=== PATIENT | male | born 1960 | race Caucasian/White ===

== ENCOUNTER 2020-07-05 23:23 | Inpatient (IN) | payer MEDICARE ==
[2020-07-06] MEDS ORDERED: HYDROMORPHONE HCL INJ/PF 2 MG/ML AMPULE IV ONE ×2 (00:04→04:25)
[2020-07-06] MEDS ORDERED: ONDANSETRON HCL INJ/PF 4 MG/2 ML SDV IV ONE ×2 (00:04→11:38)
--- NOTE | 2020-07-06 00:12 | ER Document Report ---
Entered by ALISIA RODRIGUEZ SCRIBE 07/06/20 0008 Acting as scribe for:TAIWO LUIS IV, MD ED Fall - General Mode of Arrival: Medic Information source: Patient, Emergency Med Personnel <TAIWO LUIS IV - Last Filed: 07/06/20 06:51> <EDGAR MEADEIS - Last Filed: 07/06/20 15:04> - General Chief Complaint: General Weakness Stated Complaint: FALL Time Seen by Provider: 07/05/20 23:55 Notes: This 60 year old male patient brought in by EMS from home presents to the ED today with complaints of generalized weakness for the last x1 week and a fall that occurred just prior to arrival. Patient states that he was getting up to use the bathroom when his knees buckled and he fell onto the floor. He mentions that he is supposed to have both knees replaced; however, the surgeon will not do them due to his liver failure and risk of bleeding per nursing. Reports lower back pain, but denies hitting his head or LOC. Patient states that he recently moved here with his sister from [place], [place]. Nursing reports a past medical history of A fib. Denies any other complaints. (TAIWO LUIS IV) - Related data Allergies/Adverse Reactions: No Known Allergies Allergy (Unverified 07/06/20 01:24) Past Medical History - General Information source: Emergency Med Personnel - Social History Smoking Status: Unknown if Ever Smoked Smoking Education Provided: No Lives with: Family Family History: Reviewed & Not Pertinent - Past Medical History Cardiac Medical History: Reports: Hx Atrial Fibrillation GI Medical History: Reports: Hx Liver Failure <TAIWO LUIS IV - Last Filed: 07/06/20 06:51> Review of Systems - Review of Systems Constitutional: No symptoms reported EENT: No symptoms reported Cardiovascular: No symptoms reported Respiratory: No symptoms reported Gastrointestinal: No symptoms reported Genitourinary: No symptoms reported Male Genitourinary: No symptoms reported Musculoskeletal: See HPI, Back pain Skin: No symptoms reported Hematologic/Lymphatic: No symptoms reported Neurological/Psychological: See HPI. denies: Lost consciousness, Headaches -: Yes All other systems reviewed and negative <TAIWO LUIS IV - Last Filed: 07/06/20 06:51> Physical Exam - General General appearance: Alert In distress: None - HEENT Head: Normocephalic, Atraumatic Eyes: Other - Right eye prosthetic - Respiratory Respiratory status: No respiratory distress Chest status: Nontender Breath sounds: Normal Chest palpation: Normal - Cardiovascular Rhythm: Regular Heart sounds: Normal auscultation Murmur: No Friction rub: No Gallop: None auscultated - Abdominal Inspection: Morbidly Obese Distension: No distension Bowel sounds: Normal Tenderness: Nontender - Abdomen soft Organomegaly: No organomegaly - Back Back: Normal, Nontender - Extremities General upper extremity: Normal inspection General lower extremity: Edema - 2+ pitting edema to bilateral lower extremities - Neurological Neuro grossly intact: Yes Orientation: AAOx4 Reyna Coma Scale Eye Opening: Spontaneous [place] Coma Scale Verbal: Oriented Reyna Coma Scale Motor: Obeys Commands Reyna Coma Scale Total: 15 - Psychological Associated symptoms: Normal affect, Normal mood - Skin Skin Temperature: Warm Skin Moisture: Dry Skin Color: Normal <TAIWO LUIS IV - Last Filed: 07/06/20 06:51> - Vital signs Vitals: Resp 13 07/05/20 23:54 Course - Laboratory Result Diagrams: 07/06/20 00:23 07/06/20 03:37 - Consults dr mcclellan Time consulted: 05:20 - stated pt would need to be in icu for hypertonic saline celeste rosario np, beater room helper Time consulted: 05:30 - no icu beds available for 3 days - Transfer of Care Care transferred to following provider: dr. purvis at 0647 <TAIWO LUIS IV - Last Filed: 07/06/20 06:51> - Laboratory Result Diagrams: 07/06/20 00:23 07/06/20 11:26 <ANGY MEADE - Last Filed: 07/06/20 15:04> - Re-evaluation Re-evalutation: 07/06/20 06:51 This md discussed pt's status with sister Mishel and likely transfer to [facility] (TAIWO LUIS IV) 07/06/20 07:55 Late entry due to EMR downtime. At approximately 7:15 AM I discussed with the ICU attending at [facility]. Per discussion patient does not meet ICU criteria at this time and he was not accepted in transfer. Per our discussion, beater room helper believes that these are likely chronic issues, he recommended normal saline and possibly albumin. States that he is not in acute renal failure and does not need dialysis at this time. Suspecting due to Lasix and Aldactone use. He recommended against the use of hypertonic saline. At approximately 0745 I discussed with our hospitalist team here, Dr. Hwang is still adamant that this patient needs hypertonic saline and does not think he is appropriate for the IMCU at this time. I have gone in to evaluate the patient, I do not think that he exhibits overt altered mental status. I will start him on D5 normal saline infusion, recheck BMP. 07/06/20 08:11 I have discussed the case with our beater room helper Dr. Baca. Potentially there might be an ICU bed available in a few hours. Has requested urine sodium and osmolarity, serum osmolarity. Given that his creatinine is not markedly elevated, anticipate that his potassium will downtrend. I will continue to manage patient in the emergency department until definitive answer if bed is opening. 07/06/20 08:56 Repeat BMP has been obtained. Potassium is 7.1, was 6.9, is overall lower from previous value. Will re-administer shifting agents: Calcium, glucose, insulin and albuterol. Sodium has improved, currently 116 07/06/20 11:37 Patient sister is now at bedside, I did updated her on the current plan. Patient says that he is feeling sick, will order Zofran. 07/06/20 12:46 Sodium has further increased and potassium has further decreased. Creatinine has remained about the same. I rediscussed with our ICU attending Dr. Baca, he will be going to our ICU here. (ANGY MEADE) - Vital Signs Vital signs: Temp Pulse Resp BP Pulse Ox 15 133/72 H 97 07/06/20 13:01 07/06/20 13:01 07/06/20 13:01 - Laboratory Laboratory results interpreted by me: 07/06/20 07/06/20 07/06/20 00:23 00:23 03:37 WBC 16.1 H RBC 3.17 L Hgb 10.8 L Hct 31.0 L MCV 98 H MCH 33.9 H RDW 15.5 H Plt Count 85 L Seg Neuts % (Manual) 91 H Lymphocytes % (Manual) 3 L Abs Neuts (Manual) 14.7 H Sodium 114.8 L* 113.7 L* Potassium 7.6 H* 6.9 H* Chloride 83 L 84 L Carbon Dioxide 21 L BUN 33 H 33 H Creatinine 2.24 H 2.15 H Est GFR ( Amer) 36 L 38 L Est GFR (MDRD) Non-Af 30 L 32 L Glucose 120 H POC Glucose Serum Osmolality Total Bilirubin 2.2 H Direct Bilirubin 1.2 H Alkaline Phosphatase 147 H Ammonia Creatine Kinase 195 H 184 H Urine Osmolality 07/06/20 07/06/20 07/06/20 03:37 06:41 08:11 WBC RBC Hgb Hct MCV MCH RDW Plt Count Seg Neuts % (Manual) Lymphocytes % (Manual) Abs Neuts (Manual) Sodium 116.4 L* Potassium 7.1 H* Chloride 83 L Carbon Dioxide BUN 32 H Creatinine 2.26 H Est GFR ( Amer) 36 L Est GFR (MDRD) Non-Af 30 L Glucose 112 H POC Glucose Serum Osmolality 252 L Total Bilirubin Direct Bilirubin Alkaline Phosphatase Ammonia 89.3 H Creatine Kinase Urine Osmolality 07/06/20 07/06/20 07/06/20 08:17 09:31 11:26 WBC RBC Hgb Hct MCV MCH RDW Plt Count Seg Neuts % (Manual) Lymphocytes % (Manual) Abs Neuts (Manual) Sodium 117.2 L* Potassium 6.7 H* Chloride 86 L Carbon Dioxide BUN 34 H Creatinine 2.11 H Est GFR ( Amer) 39 L Est GFR (MDRD) Non-Af 32 L Glucose 260 H POC Glucose 127 H Serum Osmolality Total Bilirubin Direct Bilirubin Alkaline Phosphatase Ammonia Creatine Kinase Urine Osmolality 297 L 07/06/20 11:26 WBC RBC Hgb Hct MCV MCH RDW Plt Count Seg Neuts % (Manual) Lymphocytes % (Manual) Abs Neuts (Manual) Sodium Potassium Chloride Carbon Dioxide BUN Creatinine Est GFR ( Amer) Est GFR (MDRD) Non-Af Glucose POC Glucose 115 H Serum Osmolality Total Bilirubin Direct Bilirubin Alkaline Phosphatase Ammonia Creatine Kinase Urine Osmolality - EKG Interpretation by Me Additional EKG results interpreted by me: 07/06/20 06:46 EKG obtained on 07/06/2020 at 00 03 hours was interpreted by this MD. Findings: Sinus bradycardia, rate 58, normal axis, P waves proceed QRS complexes, QRS complexes appear narrow, there are no obvious patterns of ST segment elevation or depression present to suggest acute myocardial ischemia or infarction. Impression: Sinus bradycardia with nonspecific ST segments (TAIWO LUIS IV) - Consults dr mcclellan Reason for consultation: 07/06/20 06:52 low na, high k (TAIWO LUIS IV) celeste rosario, account representative, beater room helper Reason for consultation: 07/06/20 06:54 pt needs hypertonic saline (TAIWO LUIS IV) Critical Care Note - Critical Care Note Total time excluding time spent on procedures (mins): 40 <ANGY MEADE - Last Filed: 07/06/20 15:04> - Critical Care Note Comments: Critical care time spent managing hyponatremia, hyperkalemia, multiple reassessments of patient and coordination of care with multiple physicians. (ANGY MEADE) Discharge <TAIWO LUIS IV - Last Filed: 07/06/20 06:51> - Discharge Unit Admitted: ICU <ANGY MEADE - Last Filed: 07/06/20 15:04> - Discharge Clinical Impression: Hyperkalemia, Hyponatremia, Renal insufficiency Condition: Stable Disposition: ADMITTED INPATIENT I personally performed the services described in the documentation, reviewed and edited the documentation which was dictated to the scribe in my presence, and it accurately records my words and actions.
[2020-07-06 00:53] LABS: HEMOGLOBIN 10.8 g/dL (13.5-17.0); MEAN CORPUSCULAR HEMOGLOBIN 33.9 pg (27.0-33.4); MEAN CORPUSCULAR HGB CONC 34.7 g/dL (32.0-36.0); MEAN CORPUSCULAR VOLUME 98 fl (80-97); RED BLOOD COUNT 3.17 10^6/uL (4.35-5.55); RED CELL DISTRIBUTION WIDTH 15.5 % (11.5-14.0); WHITE BLOOD COUNT 16.1 10^3/uL (4.0-10.5)
--- NOTE | 2020-07-06 00:59 | RADIOLOGY REPORT (SQ) ---
INDICATION: s/p fall, c/o back pain. TECHNIQUE: 2 view(s) of the lumbar spine. COMPARISON: None FINDINGS: No evidence of acute displaced fracture. Grade 1 anterior spondylolisthesis of L5 on S1. Osteoarthritis. Vertebral body heights are well-maintained. Vascular calcification. IMPRESSION: No acute bony injury is identified.
[2020-07-06 01:23] LABS: ABSOLUTE LYMPHOCYTES# (MANUAL) 0.5 10^3/uL (0.5-4.7); BASOPHILS % (MANUAL) 0 % (0-2); EOSINOPHILS % (MANUAL) 0 % (0-6); LYMPHOCYTES % (MANUAL) 3 % (13-45); MONOCYTES % (MANUAL) 6 % (3-13); PLATELET COMMENT DECREASED; SEGMENTED NEUTROPHILS % (MAN) 91 % (42-78); TOTAL CELLS COUNTED 100
[2020-07-06 01:24] LABS: SCHISTOCYTES SLIGHT
[2020-07-06 01:26] LABS: ANISOCYTOSIS 1+; POLYCHROMASIA SLIGHT
[2020-07-06 01:30] LABS: ALBUMIN 3.6 g/dL (3.5-5.0); ALKALINE PHOSPHATASE 147 U/L (38-126); ANION GAP 10 (5-19); ASPARTATE AMINO TRANSFERASE 56 U/L (17-59); BILIRUBIN,DIRECT 1.2 mg/dL (0.0-0.4); BILIRUBIN,TOTAL 2.2 mg/dL (0.2-1.3); BLOOD UREA NITROGEN 33 mg/dL (7-20); CALCIUM 9.4 mg/dL (8.4-10.2); CARBON DIOXIDE 22 mmol/L (22-30); CHLORIDE 83 mmol/L (98-107); CREATINE KINASE 195 U/L (55-170); GLUCOSE 106 mg/dL (75-110); PLATELET COUNT 85 10^3/uL (150-450)
[2020-07-06 01:35] LABS: POTASSIUM 7.6 mmol/L (3.6-5.0)
[2020-07-06 01:38] LABS: CREATINE KINASE MB 4.09 ng/mL (<4.55)
[2020-07-06 01:39] LABS: TROPONIN I < 0.012 ng/mL
[2020-07-06] MEDS ORDERED: DEXTROSE 50%-WATER 25 GM/50 ML DISP.SYRIN IV ONE ×3 (01:39→18:03)
[2020-07-06] MEDS ORDERED: CALCIUM GLUCONATE 1000 MG/10 ML INJ IV ONE ×2 (01:39→08:55)
[2020-07-06] MEDS ORDERED: SODIUM BICARBONATE 8.4% INJ 50 MEQ/50 ML DISP.SYRIN IV ONE (01:40)
[2020-07-06] MEDS ORDERED: INSULIN REG, HUMAN 100 UNIT/ML 3 ML VIAL (PYX) IV ONE ×3 (01:40→18:03)
[2020-07-06] MEDS ORDERED: NORMAL SALINE 500 ML IV ONE (01:41)
[2020-07-06] MEDS ORDERED: SODIUM POLYSTYRENE SULFONATE 15 GM/60 ML PO ONE ×3 (01:41→18:01)
[2020-07-06 02:04] LABS: APPEARANCE,URINE CLEAR; BILIRUBIN,URINE NEGATIVE (NEGATIVE); COLOR,URINE YELLOW; GLUCOSE, URINE NEGATIVE (NEGATIVE); KETONES,URINE NEGATIVE (NEGATIVE); LEUKOCYTE ESTERASE,URINE NEGATIVE (NEGATIVE); NITRITE,URINE NEGATIVE (NEGATIVE); PROTEIN,URINE NEGATIVE (NEGATIVE); URINE SPECIFIC GRAVITY 1.009; UROBILINOGEN,URINE NEGATIVE mg/dL (<2.0)
[2020-07-06 04:24] LABS: ANION GAP 9 (5-19); BLOOD UREA NITROGEN 33 mg/dL (7-20); CALCIUM 9.2 mg/dL (8.4-10.2); CARBON DIOXIDE 21 mmol/L (22-30); CHLORIDE 84 mmol/L (98-107); CREATINE KINASE 184 U/L (55-170); GLUCOSE 120 mg/dL (75-110)
[2020-07-06 04:35] LABS: POTASSIUM 6.9 mmol/L (3.6-5.0)
[2020-07-06] MEDS ORDERED: DEXTROSE 5%-NORMAL SALINE 1,000 ML IV ONE (07:50)
[2020-07-06 08:47] LABS: ANION GAP 9 (5-19); BLOOD UREA NITROGEN 32 mg/dL (7-20); CALCIUM 9.2 mg/dL (8.4-10.2); CARBON DIOXIDE 24 mmol/L (22-30); CHLORIDE 83 mmol/L (98-107); GLUCOSE 112 mg/dL (75-110)
[2020-07-06 08:49] LABS: URINE SODIUM 34 mmol/L (30-90)
[2020-07-06 08:49] LABS: POTASSIUM 7.1 mmol/L (3.6-5.0)
[2020-07-06] MEDS ORDERED: ALBUTEROL SULFATE 0.083% NEB 2.5 MG/3 ML AMPUL NEB ONE (08:55)
[2020-07-06 09:01] LABS: OSMOLALITY,URINE 297 mOsm/kg (300-900)
--- NOTE | 2020-07-06 09:16 | RADIOLOGY REPORT (SQ) ---
EXAM DESCRIPTION: CHEST SINGLE VIEW IMAGES COMPLETED DATE/TIME: 07/06/2020 8:57 am REASON FOR STUDY: eval conslidation COMPARISON: None. EXAM PARAMETERS: NUMBER OF VIEWS: One view. TECHNIQUE: Single frontal radiographic view of the chest acquired. RADIATION DOSE: NA LIMITATIONS: Lordotic portable film, obese patient FINDINGS: LUNGS AND PLEURA: No opacities, masses or pneumothorax. No pleural effusion. MEDIASTINUM AND HILAR STRUCTURES: No masses. Contour normal. HEART AND VASCULAR STRUCTURES: Heart normal in size. Normal vasculature. BONES: No acute findings. HARDWARE: None in the chest. OTHER: No other significant finding. IMPRESSION: NO ACUTE RADIOGRAPHIC FINDING IN THE CHEST. TECHNICAL DOCUMENTATION: JOB ID: [id number] 2010 [employer]- All Rights Reserved Reading location - IP/workstation name: [email or web address]
--- NOTE | 2020-07-06 10:32 | EKG REPORT ---
SEVERITY:- ABNORMAL ECG - ATRIAL FIBRILLATION IVCD, CONSIDER ATYPICAL LBBB : Confirmed by: Willa Ybarra MD 06-Jul-2020 10:31:44
[2020-07-06 12:09] LABS: ANION GAP 9 (5-19); BLOOD UREA NITROGEN 34 mg/dL (7-20); CALCIUM 8.7 mg/dL (8.4-10.2); CARBON DIOXIDE 22 mmol/L (22-30); CHLORIDE 86 mmol/L (98-107); GLUCOSE 260 mg/dL (75-110)
[2020-07-06 12:31] LABS: POTASSIUM 6.7 mmol/L (3.6-5.0)
[2020-07-06] MEDS ORDERED: IPRATROPIUM/ALBUTEROL 0.5-2.5 MG/3 ML AMPUL NEB ONE (13:08)
--- NOTE | 2020-07-06 15:11 | RADIOLOGY REPORT (SQ) ---
EXAM DESCRIPTION: CHEST SINGLE VIEW IMAGES COMPLETED DATE/TIME: 07/06/2020 3:03 pm REASON FOR STUDY: cough COMPARISON: Chest radiograph earlier same day NUMBER OF VIEWS: One view. TECHNIQUE: Single frontal radiographic view of the chest acquired. LIMITATIONS: None. FINDINGS: LUNGS AND PLEURA: Low lung volumes with resultant bronchovascular crowding. No focal pulm onary opacity, pleural effusion, or pneumothorax. MEDIASTINUM AND HILAR STRUCTURES: No masses. Contour normal. HEART AND VASCULAR STRUCTURES: Heart normal in size. Normal vasculature. BONES: No acute findings. HARDWARE: None in the chest. OTHER: No other significant finding. IMPRESSION: Hypoventilated exam without evidence of acute pulmonary process. TECHNICAL DOCUMENTATION: JOB ID: [id number] 2010 [employer]- All Rights Reserved Reading location - IP/workstation name: [email or web address]
[2020-07-06] MEDS ORDERED: NORMAL SALINE 1000 ML 1,000 ML IV PRN (16:38)
[2020-07-06] MEDS ORDERED: GLUCAGON,HUMAN RECOMB 1 MG INJ IM PRN (16:50)
[2020-07-06] MEDS ORDERED: DEXTROSE 40% GEL 15 GM TUBE PO PRN ×2 (16:50)
[2020-07-06] MEDS ORDERED: DEXTROSE 50%-WATER 25 GM/50 ML DISP.SYRIN IV PRN ×2 (16:50)
[2020-07-06] MEDS ORDERED: NORMAL SALINE 250 ML with FUROSEMIDE 250 MG IV PRN ×2 (17:07)
--- NOTE | 2020-07-06 17:39 | CRITICAL CARE ADMISSION REPORT ---
HPI Date:: 07/06/20 Time:: 17:00 Reason for ICU Reason:: Sever hyponatremia. Significant hyperkalemia. Anasarca Admission Date/Time & PCP: Admission Date/Time: 07/06/20 14:50 Primary Care Provider: CLAUDINE: The patient presents with generalized weakness and obtundation. He fell in his home yesterday as well. He lives with his sister. The patient has a history significant for CHF and Cirrhosis. When he had routinelabs doen they showed severe hyponatremaiand hyperkalemia. The patient was found to have an intial Na+ of 114 and potassium of 7.6. His creatinine is 2.24. (for GFR of 30). The patient has additional history of Atrial fib but denies being on antiembolic treatment. At this time the patient is conversant with me , speaks clearly and has decent comprehension. His serum osmolality is 252. His urien osmolality is 297 and urine Na 34. The patient has fairly massive peripheral edema. He has been on large dose of Spironolactone and lasix at home. His ammonia levl is about 80. he appears to be hemodynamically stable Plan Summary: Assessment and plan Hyponatremia This is a patient who appears to have hypotonic hypervolemic hyponatremia. It apears that the cause may be multifactorial. The patient has a history of cirrhosis ( on which basis is may have hypoaldosteronism and spironolactone, volume overload due to CHF. The patient has been treated with small doses of NACL not likely to have much of an impact as his urine osmolarity is fairly close to theosmiolality of NACL. I have added salt tablets and laced the patient on declomycin (ADH inhibitor). I have started large dose IV lasic as well. We will monotor the lytes q 6h or more frequently if need be. Hyperkalemai His potassium has trended down slightly. He does not appear to have typical changes of hyperkalemia on his ECG other than slight peaking of T waves in some of the precordial leads. Will continue to trend potassium. The patient received glucose and insulin, kayexelate,bicarbonate. CHF I have asked for an ECHO. I have asked Dr Leggett to see the patient. His heart rate at resent appears reasonably well controlled. I am not sure why he is not on anticoagulation alf. EUNICE ?I have oredered a ABG. I suspect that thepatient has EUNICE based onhis bbody habitus but he denies it. Cirrhosis The patient has no history of ascites. he does have an elevate ammonia level. I have started lactulose Past Medical History Cardiac Medical History: Reports: Atrial Fibrillation Social/Family History - Social History Lives with: Family Smoking Status: Unknown if Ever Smoked - Medication/Allergies Home Medications: Carvedilol [Coreg 12.5 mg Tablet] 12.5 mg PO Q12 07/06/20 Colchicine [Colcrys 0.6 mg Tablet] 1 tab PO BID 07/06/20 Furosemide [Lasix 20 mg Tablet] 20 mg PO BID 07/06/20 Gabapentin [Neurontin] 800 mg PO TID 07/06/20 Multivitamin [Tab-A-Renny] 1 each PO DAILY 07/06/20 Omeprazole 40 mg PO DAILY 07/06/20 Ondansetron [Zofran Odt 4 mg Tablet] 4 mg PO BIDP PRN 07/06/20 Rifaximin [Xifaxan 550 Mg Tablet] 550 mg PO QHS 07/06/20 Spironolactone [Aldactone 100 mg Tablet] 1 tab PO Q12 07/06/20 Turmeric/Turmeric Root Extract [Turmeric 500 mg Capsule] 1 each PO DAILY 07/06/20 Allergies/Adverse Reactions: No Known Allergies Allergy (Unverified 07/06/20 01:24) Review of Systems Constitutional: PRESENT: weight gain. ABSENT: chills, fatigue, fever(s) Eyes: ABSENT: visual disturbances Ears: ABSENT: hearing changes Nose, Mouth, and Throat: ABSENT: mouth pain, sore throat Cardiovascular: PRESENT: dyspnea on exertion, edema Respiratory: ABSENT: cough, sputum Gastrointestinal: PRESENT: dysphagia. ABSENT: abdominal pain, bloating Musculoskeletal: ABSENT: joint swelling, muscle weakness Integumentary: ABSENT: erythema, lesions Neurological: PRESENT: frequent falls, other - The patient was reportedly somnolent but arousable onpresentationto the ED. Endocrine: ABSENT: polydipsia Hematologic/Lymphatic: ABSENT: easy bruising Physical Exam Vital Signs: Temp Pulse Resp BP Pulse Ox 9 L 123/97 H 100 07/06/20 16:01 07/06/20 16:01 07/06/20 16:01 Intake & Output 07/05/20 07/06/20 07/07/20 06:59 06:59 06:59 Intake Total 500 Balance 500 Weight 88.5 kg Weight/Height Weight 88.5 kg Height 5 ft 9 in General appearance: PRESENT: no acute distress, morbidly obese Head exam: PRESENT: atraumatic, normocephalic Eye exam: PRESENT: conjunctiva pink Ear exam: PRESENT: normal external ear exam Mouth exam: PRESENT: moist, neck supple Neck exam: ABSENT: JVD, lymphadenopathy, tenderness, thyromegaly Respiratory exam: PRESENT: clear to auscultation lul. ABSENT: accessory muscle use Cardiovascular exam: PRESENT: irregular rhythm Pulses: PRESENT: normal carotid pulses, +2 pedal pulses bilateral GI/Abdominal exam: PRESENT: normal bowel sounds, other - Large abdominal panniculus. Unclear oif there is hepatomegaly Rectal exam: PRESENT: deferred Gentrourinary exam: ABSENT: scrotal swelling Extremities exam: PRESENT: pedal edema, other - The patient has 4+ edema. ABSENT: calf tenderness, clubbing Neurological exam: PRESENT: awake, oriented to person, oriented to place, oriented to time, oriented to situation, motor sensory deficit. ABSENT: aphasic Laboratory/Radiographs Laboratory Results: 07/06/20 00:23 07/06/20 11:26 07/06/20 07/06/20 07/06/20 00:03 00:23 00:23 WBC 16.1 H RBC 3.17 L Hgb 10.8 L Hct 31.0 L MCV 98 H MCH 33.9 H MCHC 34.7 RDW 15.5 H Plt Count 85 L Seg Neutrophils % Not Reportable Sodium 114.8 L* Potassium 7.6 H* Chloride 83 L Carbon Dioxide 22 Anion Gap 10 BUN 33 H Creatinine 2.24 H Est GFR ( Amer) 36 L Glucose 106 Serum Osmolality Calcium 9.4 Total Bilirubin 2.2 H AST 56 Alkaline Phosphatase 147 H Ammonia Total Protein 7.0 Albumin 3.6 Urine Color YELLOW Urine Appearance CLEAR Urine pH 6.0 Ur Specific [place] 1.009 Urine Protein NEGATIVE Urine Glucose (UA) NEGATIVE Urine Ketones NEGATIVE Urine Blood NEGATIVE Urine Nitrite NEGATIVE Ur Leukocyte Esterase NEGATIVE Urine WBC (Auto) 0 Urine Osmolality 07/06/20 07/06/20 07/06/20 03:37 03:37 06:41 WBC RBC Hgb Hct MCV MCH MCHC RDW Plt Count Seg Neutrophils % Sodium 113.7 L* Potassium 6.9 H* Chloride 84 L Carbon Dioxide 21 L Anion Gap 9 BUN 33 H Creatinine 2.15 H Est GFR ( Amer) 38 L Glucose 120 H Serum Osmolality 252 L Calcium 9.2 Total Bilirubin AST Alkaline Phosphatase Ammonia 89.3 H Total Protein Albumin Urine Color Urine Appearance Urine pH Ur Specific [place] Urine Protein Urine Glucose (UA) Urine Ketones Urine Blood Urine Nitrite Ur Leukocyte Esterase Urine WBC (Auto) Urine Osmolality 07/06/20 07/06/20 07/06/20 08:11 08:17 11:26 WBC RBC Hgb Hct MCV MCH MCHC RDW Plt Count Seg Neutrophils % Sodium 116.4 L* 117.2 L* Potassium 7.1 H* 6.7 H* Chloride 83 L 86 L Carbon Dioxide 24 22 Anion Gap 9 9 BUN 32 H 34 H Creatinine 2.26 H 2.11 H Est GFR ( Amer) 36 L 39 L Glucose 112 H 260 H Serum Osmolality Calcium 9.2 8.7 Total Bilirubin AST Alkaline Phosphatase Ammonia Total Protein Albumin Urine Color Urine Appearance Urine pH Ur Specific [place] Urine Protein Urine Glucose (UA) Urine Ketones Urine Blood Urine Nitrite Ur Leukocyte Esterase Urine WBC (Auto) Urine Osmolality 297 L 07/06/20 07/06/20 07/06/20 00:23 00:23 03:37 Creatine Kinase 195 H 184 H CK-MB (CK-2) 4.09 Troponin I < 0.012 Impressions: Lumbar Spine X-Ray 07/06/20 00:05 IMPRESSION: No acute bony injury is identified. Chest X-Ray 07/06/20 14:47 IMPRESSION: Hypoventilated exam without evidence of acute pulmonary process. Critical Time Critical Time (minutes): 50 -: The care of a critically ill patient is dynamic. This note represents a static moment in the admission process. Orders and treatments may be given simultaneously and urgently, and time is not banking representative of the treatment process. This patient requires Critical Care secondary to life threatening organ or limb dysfunction. Without Critical Care services, the patient is at risk for increased mortality and morbidity.
[2020-07-06 17:50] LABS: ANION GAP 10 (5-19); BLOOD UREA NITROGEN 37 mg/dL (7-20); CALCIUM 9.3 mg/dL (8.4-10.2); CARBON DIOXIDE 23 mmol/L (22-30); CHLORIDE 83 mmol/L (98-107); GLUCOSE 145 mg/dL (75-110)
[2020-07-06 17:56] LABS: POTASSIUM 7.5 mmol/L (3.6-5.0)
[2020-07-06] MEDS ORDERED: FUROSEMIDE INJ/PF 40 MG/4 ML SDV IV ONE (18:06)
[2020-07-06] MEDS ORDERED: FUROSEMIDE INJ/PF 40 MG/4 ML SDV ONE (18:33)
[2020-07-06] MEDS ORDERED: DEMECLOCYCLINE HCL 150 MG TABLET ONE (18:40)
[2020-07-06] MEDS ORDERED: FUROSEMIDE INJ/PF 100 MG/10 ML SDV ONE (18:42)
[2020-07-06] MEDS: DEMECLOCYCLINE HCL 150 MG TABLET PO SCH (19:18)
[2020-07-06] MEDS: CALCIUM GLUC IN NACL, ISO-OSM 1 GM/50 ML RTUPB IV SCH ×2 (19:18→20:23)
[2020-07-06] MEDS: LACTULOSE SYRUP 20 GM/30 ML UDCUP PO SCH (19:18)
[2020-07-06] MEDS: DOCUSATE SODIUM 100 MG CAPSULE PO SCH (19:18)
[2020-07-06 19:24] LABS: ARTERIAL BLOOD BASE EXCESS -5.1 mmol/L; ARTERIAL BLOOD H2CO3 1.14 mmol/L (1.05-1.35); ARTERIAL BLOOD HCO3 20.1 mmol/L (20-24); ARTERIAL BLOOD O2 SATURATION 97.1 % (94-98); ARTERIAL BLOOD PCO2 37.8 mmHg (35-45); ARTERIAL BLOOD PH 7.34 (7.35-7.45); ARTERIAL BLOOD PO2 97.5 mmHg (80-100); ARTERIAL BLOOD TOTAL CO2 21.3 mmol/L (23-27)
[2020-07-06 19:25] LABS: ARTERIAL BLOOD FIO2 3 L
[2020-07-06] MEDS ORDERED: ONDANSETRON HCL INJ/PF 4 MG/2 ML SDV ONE (20:41)
[2020-07-06] MEDS ORDERED: PROMETHAZINE HCL INJ 25 MG/1 ML VIAL IV ONE (20:46)
[2020-07-06] MEDS: ONDANSETRON HCL INJ/PF 4 MG/2 ML SDV IV PRN (20:48)
[2020-07-06] MEDS: IPRATROPIUM/ALBUTEROL 0.5-2.5 MG/3 ML AMPUL NEB SCH (21:06)
[2020-07-06 22:33] LABS: ALBUMIN 3.6 g/dL (3.5-5.0); ALKALINE PHOSPHATASE 136 U/L (38-126); ASPARTATE AMINO TRANSFERASE 84 U/L (17-59); BILIRUBIN,DIRECT 1.2 mg/dL (0.0-0.4); BLOOD UREA NITROGEN 36 mg/dL (7-20); CALCIUM 9.2 mg/dL (8.4-10.2); CARBON DIOXIDE 22 mmol/L (22-30); CHLORIDE 86 mmol/L (98-107); GLUCOSE 105 mg/dL (75-110); TOTAL PROTEIN 7.1 g/dL (6.3-8.2)
[2020-07-06 22:34] LABS: ANION GAP 8 (5-19)
[2020-07-06 22:48] LABS: POTASSIUM 6.6 mmol/L (3.6-5.0)
[2020-07-06] MEDS ORDERED: TRAMADOL HCL 50 MG TABLET PO ONE (22:51)
[2020-07-07] MEDS: ALBUMIN HUMAN 12.5 GM/50 ML RTUINJ IV SCH ×4 (00:05→03:06)
[2020-07-07] MEDS: ONDANSETRON HCL INJ/PF 4 MG/2 ML SDV IV PRN (01:43)
[2020-07-07 06:32] LABS: ABSOLUTE EOSINOPHILS # (AUTO) 0.1 10^3/uL (0.0-0.6); ABSOLUTE LYMPHOCYTES (AUTO) 0.9 10^3/uL (0.5-4.7); ABSOLUTE MONOCYTES (AUTO) 1.5 10^3/uL (0.1-1.4); ABSOLUTE NEUT (AUTO) 7.8 10^3/uL (1.7-8.2); BASOPHILS % (AUTO) 0.5 % (0-2); EOSINOPHILS % (AUTO) 0.5 % (0-6); HEMATOCRIT 25.6 % (37.9-51.0); HEMOGLOBIN 9.2 g/dL (13.5-17.0); LYMPHOCYTES % (AUTO) 8.6 % (13-45); MEAN CORPUSCULAR HGB CONC 36.1 g/dL (32.0-36.0); MEAN CORPUSCULAR VOLUME 97 fl (80-97); MONOCYTES % (AUTO) 14.4 % (3-13); RED BLOOD COUNT 2.64 10^6/uL (4.35-5.55); RED CELL DISTRIBUTION WIDTH 15.7 % (11.5-14.0); TOTAL CELLS COUNTED % (AUTO) 100 %; WHITE BLOOD COUNT 10.2 10^3/uL (4.0-10.5)
[2020-07-07 06:48] LABS: ALBUMIN 3.7 g/dL (3.5-5.0); ALKALINE PHOSPHATASE 112 U/L (38-126); ANION GAP 12 (5-19); ASPARTATE AMINO TRANSFERASE 100 U/L (17-59); BILIRUBIN,DIRECT 1.2 mg/dL (0.0-0.4); BILIRUBIN,TOTAL 2.1 mg/dL (0.2-1.3); BLOOD UREA NITROGEN 38 mg/dL (7-20); CALCIUM 9.2 mg/dL (8.4-10.2); CARBON DIOXIDE 22 mmol/L (22-30); CHLORIDE 86 mmol/L (98-107); CHOLESTEROL 124.27 mg/dL (0-200); GLUCOSE 94 mg/dL (75-110); PHOSPHORUS 5.4 mg/dL (2.5-4.5); TOTAL PROTEIN 6.6 g/dL (6.3-8.2); TRIGLYCERIDES 105 mg/dL (<150)
[2020-07-07 06:57] LABS: POTASSIUM 6.4 mmol/L (3.6-5.0)
[2020-07-07 06:59] LABS: DIRECT LDL 62 mg/dL (<100)
[2020-07-07 07:02] LABS: FREE T4 (FREE THYROXINE) 1.47 ng/dL (0.78-2.19)
[2020-07-07 07:16] LABS: THYROID STIMULATING HORMONE 9.67 uIU/mL (0.47-4.68)
[2020-07-07 07:26] LABS: PLATELET COUNT 71 10^3/uL (150-450)
[2020-07-07] MEDS ORDERED: ETOMIDATE INJ/PF 20 MG/10 ML SDV IV ONE (08:00)
[2020-07-07] MEDS ORDERED: DEXMEDETOMIDINE IN 0.9 % NACL 0 MCG/0 ML RTUPB IV ONE (08:27)
[2020-07-07] MEDS: IPRATROPIUM/ALBUTEROL 0.5-2.5 MG/3 ML AMPUL NEB SCH ×4 (08:40→19:43)
[2020-07-07] MEDS: INSULIN REG, HUMAN 100 UNIT/ML 3 ML VIAL (PYX) SUBCUT SCH (09:41)
[2020-07-07] MEDS ORDERED: RIFAXIMIN 550 MG TABLET PO SCH (10:00)
[2020-07-07] MEDS ORDERED: ENOXAPARIN SODIUM INJ 40 MG/0.4 ML DISP.SYRIN SUBCUT SCH (10:00)
[2020-07-07] MEDS: LACTULOSE SYRUP 20 GM/30 ML UDCUP PO SCH ×2 (10:49→18:18)
[2020-07-07] MEDS: DOCUSATE SODIUM 100 MG CAPSULE PO SCH ×2 (10:50→18:18)
[2020-07-07] MEDS: DEMECLOCYCLINE HCL 150 MG TABLET PO SCH ×2 (10:50→18:18)
[2020-07-07] MEDS: SODIUM CHLORIDE 1 GM TABLET PO SCH (10:50)
[2020-07-07] MEDS ORDERED: ONDANSETRON 4 MG TAB.RAPDIS PO PRN (10:55)
--- NOTE | 2020-07-07 11:22 | PDOC CRITICAL CARE PROG REPORT ---
General Date:: 07/07/20 ICU Day:: 1 Hospital Day:: 1 Resuscitation Status: Full Code Events in the past 12 to 24 Hours:: Both sodium higher and potassium lower. Review of systems relevant to events:: Renal, hepatic and neurological Reason for ICU Addmission:: Both sodium and potassium improved. - Medications: Medications reviewed and adjusted accordingly: Yes Vasopressors:: None Sedation:: None Physical Exam Vital Signs: Temp Pulse Resp BP Pulse Ox 98.2 F 72 12 142/65 H 95 07/07/20 10:00 07/07/20 08:40 07/07/20 10:27 07/07/20 10:27 07/07/20 10:27 Intake & Output 07/06/20 07/07/20 07/08/20 06:59 06:59 06:59 Intake Total 500 1200 1077 Output Total 1500 640 Balance 500 -300 437 Weight 88.5 kg 142.1 kg Weight/Height Weight 142.1 kg Height 5 ft 9 in General appearance: PRESENT: no acute distress, cooperative, obese Head exam: PRESENT: atraumatic, normocephalic Eye exam: PRESENT: conjunctiva pink, EOMI, PERRLA. ABSENT: scleral icterus Ear exam: PRESENT: normal external ear exam Mouth exam: PRESENT: moist, tongue midline Neck exam: ABSENT: carotid bruit, JVD, lymphadenopathy, thyromegaly Respiratory exam: PRESENT: clear to auscultation lul, decreased breath sounds. ABSENT: rales, rhonchi, wheezes Cardiovascular exam: PRESENT: RRR. ABSENT: diastolic murmur, rubs, systolic murmur GI/Abdominal exam: PRESENT: normal bowel sounds, soft. ABSENT: distended, guarding, mass, organolmegaly, rebound, tenderness Rectal exam: PRESENT: deferred Gentrourinary exam: PRESENT: indwelling catheter Extremities exam: PRESENT: full ROM. ABSENT: calf tenderness, clubbing, pedal edema Musculoskeletal exam: PRESENT: normal inspection Neurological exam: PRESENT: alert, altered, awake, oriented to person Psychiatric exam: PRESENT: flat affect Skin exam: PRESENT: petechiae, other - Ecchymoses from falling. Laboratory/Radiographs Laboratory Results: 07/07/20 06:05 07/07/20 06:05 07/06/20 07/06/20 07/06/20 11:26 17:25 19:09 WBC RBC Hgb Hct MCV MCH MCHC RDW Plt Count Seg Neutrophils % Carbonic Acid 1.14 HCO3/H2CO3 Ratio 17:1 ABG pH 7.34 L ABG pCO2 37.8 ABG pO2 97.5 ABG HCO3 20.1 ABG O2 Saturation 97.1 ABG Base Excess -5.1 FiO2 3 L Sodium 117.2 L* 116.4 L* Potassium 6.7 H* 7.5 H* Chloride 86 L 83 L Carbon Dioxide 22 23 Anion Gap 9 10 BUN 34 H 37 H Creatinine 2.11 H 2.41 H Est GFR ( Amer) 39 L 33 L Glucose 260 H 145 H Lactic Acid Calcium 8.7 9.3 Phosphorus Magnesium Total Bilirubin AST Alkaline Phosphatase Total Protein Albumin Triglycerides Cholesterol LDL Cholesterol Direct VLDL Cholesterol HDL Cholesterol TSH Free T4 07/06/20 07/06/20 07/07/20 22:02 22:02 06:05 WBC 10.2 RBC 2.64 L Hgb 9.2 L Hct 25.6 L MCV 97 MCH 35.0 H MCHC 36.1 H RDW 15.7 H Plt Count 71 L Seg Neutrophils % 76.0 Carbonic Acid HCO3/H2CO3 Ratio ABG pH ABG pCO2 ABG pO2 ABG HCO3 ABG O2 Saturation ABG Base Excess FiO2 Sodium 116.2 L* Potassium 6.6 H* Chloride 86 L Carbon Dioxide 22 Anion Gap 8 BUN 36 H Creatinine 2.39 H Est GFR ( Amer) 34 L Glucose 105 Lactic Acid 1.5 Calcium 9.2 Phosphorus Magnesium 2.0 Total Bilirubin 2.0 H AST 84 H Alkaline Phosphatase 136 H Total Protein 7.1 Albumin 3.6 Triglycerides Cholesterol LDL Cholesterol Direct VLDL Cholesterol HDL Cholesterol TSH Free T4 07/07/20 07/07/20 06:05 06:05 WBC RBC Hgb Hct MCV MCH MCHC RDW Plt Count Seg Neutrophils % Carbonic Acid HCO3/H2CO3 Ratio ABG pH ABG pCO2 ABG pO2 ABG HCO3 ABG O2 Saturation ABG Base Excess FiO2 Sodium 119.9 L* Potassium 6.4 H* Chloride 86 L Carbon Dioxide 22 Anion Gap 12 BUN 38 H Creatinine 2.24 H Est GFR ( Amer) 36 L Glucose 94 Lactic Acid Calcium 9.2 Phosphorus 5.4 H Magnesium 1.9 Total Bilirubin 2.1 H AST 100 H Alkaline Phosphatase 112 Total Protein 6.6 Albumin 3.7 Triglycerides 105 Cholesterol 124.27 LDL Cholesterol Direct 62 VLDL Cholesterol 21.0 HDL Cholesterol 42 TSH 9.67 H Free T4 1.47 07/06/20 07/06/20 07/06/20 00:23 00:23 03:37 Creatine Kinase 195 H 184 H CK-MB (CK-2) 4.09 Troponin I < 0.012 NT-Pro-B Natriuret Pep 07/07/20 06:05 Creatine Kinase CK-MB (CK-2) Troponin I NT-Pro-B Natriuret Pep 1540 H Impressions: Lumbar Spine X-Ray 07/06/20 00:05 IMPRESSION: No acute bony injury is identified. Chest X-Ray 07/06/20 14:47 IMPRESSION: Hypoventilated exam without evidence of acute pulmonary process. EKG: Currently NSR All labs, radiographs, diagnostic studies and EKGs were personally reviewed: Yes In addition, reports of radiographic and diagnostic studies were read: Yes Assessment and Plan - Diagnosis (1) Hyponatremia Is this a current diagnosis for this admission?: Yes Plan: His level of 119 without 3% NS is improved. Lasix drip stopped, aldactone stopped. Repeat BMP at 1PM. Stable for [facility] transfer. (2) Hyperammonemia Is this a current diagnosis for this admission?: Yes Plan: His level of 80 has nothing to compare to. However it is likely contributing to is flat affect. (3) Hyperkalemia Is this a current diagnosis for this admission?: Yes Plan: Potassium improved. (4) Renal insufficiency Is this a current diagnosis for this admission?: Yes Plan: We have nothing to copare his Cr and GFR to. However this would make sense with regard to his potassium level. Plan Summary: Will recheck BMP at 1 PM and downgrade to [facility]. PT to mobilize. Critical Time Critical Time (minutes): 30 Level of Care: IMCU Anticipated discharge: Home with Homehealth Anticipated DC Timeframe: Other -: 1. The care of a critical patient is a dynamic process. This note is a telemarketing representative synopsis but static in nature. The timeframe for treatments given in order is not necessarily the actual time these treatments may have been done. 2. This patient requires critical care secondary to ongoing requirements for therapy not offered or safe outside the critical care environment. Transfer to a lower level of care will result in altered life or limb morbidity and mortality. 3. Multidisciplinary rounds completed. 4. ABCDE bundle addressed.
[2020-07-07] MEDS: GABAPENTIN 400 MG CAPSULE PO SCH ×2 (14:44→22:06)
[2020-07-07 15:16] LABS: ANION GAP 7 (5-19); BLOOD UREA NITROGEN 39 mg/dL (7-20); CALCIUM 8.9 mg/dL (8.4-10.2); CARBON DIOXIDE 26 mmol/L (22-30); CHLORIDE 88 mmol/L (98-107); GLUCOSE 109 mg/dL (75-110); POTASSIUM 5.6 mmol/L (3.6-5.0)
[2020-07-07] MEDS: NORMAL SALINE 1000 ML 1,000 ML IV PRN (18:18)
[2020-07-07] MEDS: FUROSEMIDE 20 MG TABLET PO SCH (18:18)
[2020-07-07] MEDS: COLCHICINE 0.6 MG TABLET PO SCH (18:18)
--- NOTE | 2020-07-07 20:49 | XCELERA REPORT ---
[address] [address] Transthoracic Echocardiogram Report Name: NOAH LANGLEY Age: 60 yrs Gender: Male : 1960 Patient Status: Inpatient Patient Location: ICU^607^A Study Date: 07/07/2020 11:45 AM Height: 69 in Weight: 313 lb BSA: 2.5 m2 Reason For Study: LV dysfunction Ordering Physician: CLIFF SOTELO Performed By: Altagracia Martinez Interpretation Summary The left ventricle is mildly dilated. Left ventricular systolic function is normal. The Ejection Fraction estimate is 60-65%. Doppler measurements suggest pseudonormalized left ventricular relaxation, which is associated with grade II/IV or mild to moderate diastolic dysfunction. Regional wall motion assessment is limited by suboptimal windows however it appears normal. Trace to mild MR, mild TR, mild PI. Moderate pulmonary hypertension. Best estimated RVSP is approximately 50-55 mm/Hg. No prior studies for comparison. MMode/2D Measurements & Calculations RVDd: 2.9 cm LVIDd: 5.8 cm FS: 40.4 % Ao root diam: 2.5 cm IVSd: 1.0 cm LVIDs: 3.4 cm EDV(Teich): 165.2 ml LVPWd: 1.0 cm ESV(Teich): 48.9 ml Ao root area: 4.8 cm2 LA dimension: 5.7 cm EF(Teich): 70.4 % Doppler Measurements & Calculations MV E max dada: MV P1/2t max dada: Ao V2 max: LV V1 max P.3 cm/sec 151.8 cm/sec 200.9 cm/sec 8.6 mmHg MV A max dada: MV P1/2t: 86.3 msec Ao max PG: LV V1 max: 109.2 cm/sec MVA(P1/2t): 2.5 cm2 16.1 mmHg 146.8 cm/sec MV E/A: 1.4 MV dec slope: 515.3 cm/sec2 MV dec time: 0.27 sec PA V2 max: TR max dada: MV P1/2t-pr_phl: 133.9 cm/sec 335.3 cm/sec 86.3 msec PA max P.2 mmHgTR max P.0 mmHg Left Ventricle The left ventricle is mildly dilated. Left ventricular systolic function is normal. The Ejection Fraction estimate is 60-65%. Doppler measurements suggest pseudonormalized left ventricular relaxation, which is associated with grade II/IV or mild to moderate diastolic dysfunction. Regional wall motion assessment is limited by suboptimal windows however it appears normal. Right Ventricle The right ventricle is normal in size, thickness and function. The right ventricular systolic function is normal. Atria The right atrium is normal. The left atrium is mildly dilated. The interatrial septum is difficult to see, but appears to be grossly normal. Mitral Valve The mitral valve is grossly normal. There is a trace to mild amount of mitral regurgitation. Aortic Valve The aortic valve is not well visualized secondary to technical limitations. No aortic regurgitation is present. Tricuspid Valve The tricuspid valve is not well visualized secondary to technical limitations. There is a trace to mild amount of tricuspid regurgitation. There is moderate pulmonary hypertension by echo. Best estimated RVSP is approximately 50-55 mm/Hg. Pulmonic Valve The pulmonic valve is not well visualized. There is a mild amount of pulmonic regurgitation. Effusions There is no pericardial effusion. There is no pleural effusion. : CLIFF SOTELO Antonio
[2020-07-07] MEDS: CARVEDILOL 12.5 MG TABLET PO SCH (22:06)
[2020-07-07] MEDS: RIFAXIMIN 550 MG TABLET PO SCH (22:06)
[2020-07-08 04:28] LABS: ANION GAP 9 (5-19); BLOOD UREA NITROGEN 38 mg/dL (7-20); CALCIUM 8.9 mg/dL (8.4-10.2); CARBON DIOXIDE 24 mmol/L (22-30); CHLORIDE 91 mmol/L (98-107); GLUCOSE 107 mg/dL (75-110)
[2020-07-08] MEDS ORDERED: LACTULOSE SYRUP 20 GM/30 ML UDCUP PO ONE (04:36)
[2020-07-08] MEDS: GABAPENTIN 400 MG CAPSULE PO SCH ×3 (05:26→21:32)
[2020-07-08] MEDS: NORMAL SALINE 1000 ML 1,000 ML IV PRN ×2 (06:17→21:40)
[2020-07-08] MEDS: INSULIN REG, HUMAN 100 UNIT/ML 3 ML VIAL (PYX) SUBCUT SCH (08:03)
[2020-07-08] MEDS: IPRATROPIUM/ALBUTEROL 0.5-2.5 MG/3 ML AMPUL NEB SCH ×3 (08:34→15:44)
--- NOTE | 2020-07-08 09:30 | PDOC CRITICAL CARE PROG REPORT ---
General Date:: 07/08/20 Hospital Day:: 2 Resuscitation Status: Full Code Events in the past 12 to 24 Hours:: Cr and GFR better, potassium a bit higher. Review of systems relevant to events:: Renal Reason for ICU Addmission:: Both sodium improved. - Medications: Medications reviewed and adjusted accordingly: Yes Vasopressors:: None Sedation:: None Physical Exam Vital Signs: Temp Pulse Resp BP Pulse Ox 100.4 F 99 26 H 163/66 H 94 07/08/20 07:18 07/08/20 08:34 07/08/20 08:34 07/08/20 07:18 07/08/20 08:34 Intake & Output 07/07/20 07/08/20 07/09/20 06:59 06:59 06:59 Intake Total 1200 1676 Output Total 1500 3390 500 Balance -300 -1714 -500 Weight 142.1 kg 143.9 kg Weight/Height Weight 143.9 kg Height 5 ft 9 in General appearance: PRESENT: no acute distress, cooperative, morbidly obese Head exam: PRESENT: atraumatic, normocephalic Eye exam: PRESENT: conjunctiva pink, EOMI, PERRLA. ABSENT: scleral icterus Ear exam: PRESENT: normal external ear exam Mouth exam: PRESENT: moist, tongue midline Respiratory exam: PRESENT: clear to auscultation lul, decreased breath sounds. ABSENT: rales, rhonchi, wheezes Cardiovascular exam: PRESENT: RRR. ABSENT: diastolic murmur, rubs, systolic murmur GI/Abdominal exam: PRESENT: normal bowel sounds, soft. ABSENT: distended, guarding, mass, organolmegaly, rebound, tenderness Rectal exam: PRESENT: deferred Extremities exam: PRESENT: full ROM Musculoskeletal exam: PRESENT: normal inspection Neurological exam: PRESENT: alert, awake, oriented to person, CN II-XII grossly intact Skin exam: PRESENT: dry, intact, warm. ABSENT: cyanosis, rash Laboratory/Radiographs Laboratory Results: 07/07/20 06:05 07/08/20 03:43 07/07/20 07/08/20 14:43 03:43 Sodium 121.3 L 123.7 L Potassium 5.6 H 6.0 H* Chloride 88 L 91 L Carbon Dioxide 26 24 Anion Gap 7 9 BUN 39 H 38 H Creatinine 2.08 H 1.87 H Est GFR ( Amer) 40 L 45 L Glucose 109 107 Calcium 8.9 8.9 07/06/20 07/06/20 07/06/20 00:23 00:23 03:37 Creatine Kinase 195 H 184 H CK-MB (CK-2) 4.09 Troponin I < 0.012 NT-Pro-B Natriuret Pep 07/07/20 06:05 Creatine Kinase CK-MB (CK-2) Troponin I NT-Pro-B Natriuret Pep 1540 H Impressions: Lumbar Spine X-Ray 07/06/20 00:05 IMPRESSION: No acute bony injury is identified. Chest X-Ray 07/06/20 14:47 IMPRESSION: Hypoventilated exam without evidence of acute pulmonary process. All labs, radiographs, diagnostic studies and EKGs were personally reviewed: Yes In addition, reports of radiographic and diagnostic studies were read: Yes Assessment and Plan - Diagnosis (1) Hyponatremia Is this a current diagnosis for this admission?: Yes Plan: Improved with a level of 123. (2) Hyperammonemia Is this a current diagnosis for this admission?: Yes Plan: Will check again in AM (3) Hyperkalemia Is this a current diagnosis for this admission?: Yes Plan: K at 6.o more [place] ordered and repeat BMP at 2P. (4) Renal insufficiency Is this a current diagnosis for this admission?: Yes Plan: Improved Plan Summary: Still stable for floor transfer. Critical Time Critical Time (minutes): 25 Level of Care: IMCU Anticipated discharge: Home with Homehealth Anticipated DC Timeframe: Other -: 1. The care of a critical patient is a dynamic process. This note is a wireless sales representative synopsis but static in nature. The timeframe for treatments given in order is not necessarily the actual time these treatments may have been done. 2. This patient requires critical care secondary to ongoing requirements for therapy not offered or safe outside the critical care environment. Transfer to a lower level of care will result in altered life or limb morbidity and mortality. 3. Multidisciplinary rounds completed. 4. ABCDE bundle addressed.
[2020-07-08] MEDS ORDERED: MULTIVITAMIN TABLET PO SCH (10:00)
[2020-07-08] MEDS: LACTULOSE SYRUP 20 GM/30 ML UDCUP PO SCH ×2 (10:09→17:41)
[2020-07-08] MEDS: CARVEDILOL 12.5 MG TABLET PO SCH ×2 (10:09→21:31)
[2020-07-08] MEDS: FUROSEMIDE 20 MG TABLET PO SCH ×2 (10:09→17:42)
[2020-07-08] MEDS: DOCUSATE SODIUM 100 MG CAPSULE PO SCH ×2 (10:09→17:41)
[2020-07-08] MEDS: COLCHICINE 0.6 MG TABLET PO SCH ×2 (10:10→17:42)
[2020-07-08] MEDS: SODIUM CHLORIDE 1 GM TABLET PO SCH (10:10)
[2020-07-08] MEDS: DEMECLOCYCLINE HCL 150 MG TABLET PO SCH ×2 (10:10→17:42)
[2020-07-08] MEDS: PANTOPRAZOLE SODIUM 40 MG TABLET.DR PO SCH (10:10)
[2020-07-08] MEDS: SODIUM POLYSTYRENE SULFONATE 15 GM/60 ML PO SCH ×4 (10:21→23:07)
[2020-07-08 15:03] LABS: ANION GAP 9 (5-19); BLOOD UREA NITROGEN 37 mg/dL (7-20); CALCIUM 8.9 mg/dL (8.4-10.2); CARBON DIOXIDE 23 mmol/L (22-30); CHLORIDE 94 mmol/L (98-107); GLUCOSE 99 mg/dL (75-110)
[2020-07-08 15:04] LABS: POTASSIUM 4.7 mmol/L (3.6-5.0)
[2020-07-08] MEDS: RIFAXIMIN 550 MG TABLET PO SCH (21:32)
[2020-07-09] MEDS: SODIUM POLYSTYRENE SULFONATE 15 GM/60 ML PO SCH (05:20)
[2020-07-09] MEDS: GABAPENTIN 400 MG CAPSULE PO SCH ×3 (05:20→21:52)
[2020-07-09 06:14] LABS: ABSOLUTE EOSINOPHILS # (AUTO) 0.1 10^3/uL (0.0-0.6); ABSOLUTE LYMPHOCYTES (AUTO) 0.8 10^3/uL (0.5-4.7); ABSOLUTE MONOCYTES (AUTO) 1.7 10^3/uL (0.1-1.4); ABSOLUTE NEUT (AUTO) 12.8 10^3/uL (1.7-8.2); BASOPHILS % (AUTO) 0.2 % (0-2); EOSINOPHILS % (AUTO) 0.8 % (0-6); HEMATOCRIT 25.5 % (37.9-51.0); HEMOGLOBIN 8.9 g/dL (13.5-17.0); LYMPHOCYTES % (AUTO) 5.4 % (13-45); MEAN CORPUSCULAR HGB CONC 34.8 g/dL (32.0-36.0); MEAN CORPUSCULAR VOLUME 98 fl (80-97); MONOCYTES % (AUTO) 10.9 % (3-13); RED BLOOD COUNT 2.61 10^6/uL (4.35-5.55); RED CELL DISTRIBUTION WIDTH 15.6 % (11.5-14.0); SEGMENTED NEUTROPHILS % (AUTO) 82.7 % (42-78); TOTAL CELLS COUNTED % (AUTO) 100 %; WHITE BLOOD COUNT 15.5 10^3/uL (4.0-10.5)
[2020-07-09 06:29] LABS: ALKALINE PHOSPHATASE 119 U/L (38-126); ANION GAP 10 (5-19); ASPARTATE AMINO TRANSFERASE 89 U/L (17-59); BILIRUBIN,DIRECT 1.2 mg/dL (0.0-0.4); BILIRUBIN,TOTAL 1.9 mg/dL (0.2-1.3); BLOOD UREA NITROGEN 34 mg/dL (7-20); CALCIUM 8.6 mg/dL (8.4-10.2); CARBON DIOXIDE 24 mmol/L (22-30); CHLORIDE 93 mmol/L (98-107); GLUCOSE 95 mg/dL (75-110); POTASSIUM 4.1 mmol/L (3.6-5.0); TOTAL PROTEIN 5.9 g/dL (6.3-8.2)
[2020-07-09 07:25] LABS: PLATELET COUNT 60 10^3/uL (150-450)
[2020-07-09] MEDS: INSULIN REG, HUMAN 100 UNIT/ML 3 ML VIAL (PYX) SUBCUT SCH (09:09)
[2020-07-09] MEDS: LACTULOSE SYRUP 20 GM/30 ML UDCUP PO SCH (09:13)
[2020-07-09] MEDS: DOCUSATE SODIUM 100 MG CAPSULE PO SCH ×2 (09:14→18:03)
[2020-07-09] MEDS: COLCHICINE 0.6 MG TABLET PO SCH (09:18)
[2020-07-09] MEDS: CARVEDILOL 12.5 MG TABLET PO SCH ×2 (09:18→21:53)
[2020-07-09] MEDS: FUROSEMIDE 20 MG TABLET PO SCH ×2 (09:18→18:10)
[2020-07-09] MEDS: DEMECLOCYCLINE HCL 150 MG TABLET PO SCH ×2 (09:18→18:12)
[2020-07-09] MEDS: PANTOPRAZOLE SODIUM 40 MG TABLET.DR PO SCH (09:18)
[2020-07-09] MEDS: SODIUM CHLORIDE 1 GM TABLET PO SCH (09:18)
--- NOTE | 2020-07-09 09:55 | RADIOLOGY REPORT (SQ) ---
EXAM DESCRIPTION: CHEST SINGLE VIEW IMAGES COMPLETED DATE/TIME: 07/09/2020 9:33 am REASON FOR STUDY: Assess for pneumonia COMPARISON: AP view of the chest from 07/06/2020. EXAM PARAMETERS: NUMBER OF VIEWS: One view. TECHNIQUE: An AP view of the chest was obtained. RADIATION DOSE: NA LIMITATIONS: None. FINDINGS: LUNGS AND PLEURA: Low inspiratory lung volumes without a superimposed consolidation, sizea ble pleural effusion or pneumothorax. MEDIASTINUM AND HILAR STRUCTURES: No mediastinal or hilar contour abnormality. HEART AND VASCULAR STRUCTURES: Stable enlarged cardiac silhouette. BONES: No acute findings. HARDWARE: None in the chest. OTHER: No other finding. IMPRESSION: Cardiomegaly and low inspiratory lung volumes without a superimposed acute cardiopulmona ry process. TECHNICAL DOCUMENTATION: JOB ID: [id number] 2010 [employer]- All Rights Reserved Reading location - IP/workstation name: [email or web address]
--- NOTE | 2020-07-09 10:33 | CDI QUERY ---
CDI Query CDI Review: We are seeking further clarification of documentation to reflect the severity of illness of your patient. Documentation in the medical record indicates that this patient has been admitted with or diagnosed as having renal insufficiency The following labs are also documented in the medical record: Creatinine: 2.24 2.15 1.87 2.02 1.69 Urine osmolality 297 Per H&P: Patient has massive peripheral edema On large dose Spironolactone and Lasix Based on your medical judgment, can you please clarify in the progress notes the diagnosis associated with these findings such as: Acute Kidney Injury Acute Tubular Necrosis Acute on Chronic Renal Failure Chronic Kidney Disease (Stage, if known) Other (please specify) None of the above / Not applicable Thank you for your consideration. ROYAL Villalobos RN Clinical Assurance Senior Manager Physician Advisor [email or web address]
[2020-07-09] MEDS ORDERED: NORMAL SALINE 1000 ML 1,000 ML IV ONE (12:30)
--- NOTE | 2020-07-09 16:07 | PDOC PROGRESS REPORT ---
Subjective Progress Note for:: 07/09/20 Subjective:: Feeling uncomfortable. Complaining of back pain. Feels weak in general. Still having diarrhea but the fecal collection system does not seem to be working well. Reason For Visit: HYPERKALEMIA,HYPONATREMIA Physical Exam Vital Signs: Temp Pulse Resp BP Pulse Ox 99.0 F 76 18 96/42 L 97 07/09/20 11:48 07/09/20 14:00 07/09/20 11:48 07/09/20 11:48 07/09/20 11:48 Intake & Output 07/08/20 07/09/20 07/10/20 06:59 06:59 06:59 Intake Total 1676 2219 1355 Output Total 3390 3750 1000 Balance -1714 -1531 355 Weight 143.9 kg 137.9 kg General appearance: PRESENT: cooperative, mild distress - Mild to moderate dis tress, morbidly obese, well-developed Head exam: PRESENT: atraumatic, normocephalic Eye exam: PRESENT: other - Right eye Ear exam: PRESENT: normal external ear exam. ABSENT: bleeding, drainage Respiratory exam: PRESENT: decreased breath sounds - Likely due to body habitus, symmetrical, unlabored. ABSENT: rales, rhonchi, tachypnea, wheezes Cardiovascular exam: PRESENT: RRR, +S1, +S2, systolic murmur GI/Abdominal exam: PRESENT: normal bowel sounds, soft, other - Protuberant abdomen. ABSENT: tenderness Rectal exam: PRESENT: other - Fecal collection system in place Extremities exam: PRESENT: pedal edema Neurological exam: PRESENT: alert, awake, oriented to person, oriented to place, oriented to time, oriented to situation Psychiatric exam: PRESENT: appropriate affect - Affect reflects his discomfort. ABSENT: agitated, anxious Results Laboratory Results: 07/09/20 05:46 07/09/20 05:46 07/09/20 07/09/20 05:46 05:46 WBC 15.5 H RBC 2.61 L Hgb 8.9 L Hct 25.5 L MCV 98 H MCH 34.0 H MCHC 34.8 RDW 15.6 H Plt Count 60 L Seg Neutrophils % 82.7 H Sodium 126.6 L Potassium 4.1 Chloride 93 L Carbon Dioxide 24 Anion Gap 10 BUN 34 H Creatinine 1.69 H Est GFR ( Amer) 50 L Glucose 95 Calcium 8.6 Magnesium 1.4 L Total Bilirubin 1.9 H AST 89 H Alkaline Phosphatase 119 Total Protein 5.9 L Albumin 3.0 L 07/06/20 07/06/20 07/06/20 00:23 00:23 03:37 Creatine Kinase 195 H 184 H CK-MB (CK-2) 4.09 Troponin I < 0.012 NT-Pro-B Natriuret Pep 07/07/20 06:05 Creatine Kinase CK-MB (CK-2) Troponin I NT-Pro-B Natriuret Pep 1540 H Impressions: Lumbar Spine X-Ray 07/06/20 00:05 IMPRESSION: No acute bony injury is identified. Chest X-Ray 07/09/20 00:00 IMPRESSION: Cardiomegaly and low inspiratory lung volumes without a superimposed acute cardiopulmonary process. Assessment and Plan - Diagnosis (1) Hyponatremia Is this a current diagnosis for this admission?: Yes Plan: This is a chronic issue for this patient. Sodium is up to 126 today. Continue to monitor sodium levels. Consider discontinuing demeclocycline and adding a fluid restriction. (2) Leucocytosis Qualifiers: Leukocytosis type: unspecified Qualified Code(s): D72.829 - Elevated white blood cell count, unspecified Is this a current diagnosis for this admission?: Yes Plan: White count was up to 15,000 today. It was normal yesterday. No obvious site of infection. Repeat tomorrow. (3) Thrombocytopenia Is this a current diagnosis for this admission?: Yes Plan: Platelets are low. It is unknown if this is chronic or an acute issue. This could account for the bruising that is present. Continue to monitor platelet count. (4) Anemia Qualifiers: Anemia type: unspecified type Qualified Code(s): D64.9 - Anemia, uns pecified Is this a current diagnosis for this admission?: Yes Plan: Hemoglobin is down to 8.9. Continue to monitor. MCV is borderline high. We will add anemia studies to today's blood work (5) Hyperammonemia Is this a current diagnosis for this admission?: Yes Plan: Was on lactulose. This was discontinued. Will recheck. If still elevated consider resuming lactulose. (6) Hyperkalemia Is this a current diagnosis for this admission?: Yes Plan: Calcium is normal at this point. Continue to monitor electrolytes. (7) Hypomagnesemia Is this a current diagnosis for this admission?: Yes Plan: Magnesium supplement ordered. Recheck magnesium level tomorrow. - Time Time Spent with patient: 15-24 minutes Medications reviewed and adjusted accordingly: Yes Anticipated Discharge Disposition: Home with Home Health Anticipated Discharge Timeframe: within 72 hours
[2020-07-09] MEDS ORDERED: FENTANYL CITRATE INJ/PF 100 MCG/2 ML AMPUL IV ONE (16:40)
[2020-07-09] MEDS: NORMAL SALINE 1000 ML 1,000 ML IV PRN (18:09)
[2020-07-09] MEDS: MAGNESIUM SULFATE/D5W 1 GM/100 ML RTUPB IV SCH ×3 (18:10→21:49)
[2020-07-09] MEDS: ACETAMINOPHEN 325 MG TABLET PO PRN (21:52)
[2020-07-09] MEDS: RIFAXIMIN 550 MG TABLET PO SCH (21:52)
[2020-07-10] MEDS: ACETAMINOPHEN 325 MG TABLET PO PRN ×2 (02:05→06:30)
[2020-07-10] MEDS: GABAPENTIN 400 MG CAPSULE PO SCH ×3 (05:18→21:40)
[2020-07-10 06:40] LABS: HEMATOCRIT 23.4 % (37.9-51.0); HEMOGLOBIN 8.4 g/dL (13.5-17.0); MEAN CORPUSCULAR HEMOGLOBIN 34.9 pg (27.0-33.4); MEAN CORPUSCULAR HGB CONC 35.8 g/dL (32.0-36.0); MEAN CORPUSCULAR VOLUME 98 fl (80-97); RED CELL DISTRIBUTION WIDTH 15.9 % (11.5-14.0); WHITE BLOOD COUNT 9.2 10^3/uL (4.0-10.5)
[2020-07-10 06:47] LABS: ALBUMIN 2.7 g/dL (3.5-5.0); ALKALINE PHOSPHATASE 117 U/L (38-126); ANION GAP 9 (5-19); ASPARTATE AMINO TRANSFERASE 80 U/L (17-59); BILIRUBIN,DIRECT 1.2 mg/dL (0.0-0.4); BILIRUBIN,TOTAL 1.8 mg/dL (0.2-1.3); BLOOD UREA NITROGEN 36 mg/dL (7-20); CARBON DIOXIDE 24 mmol/L (22-30); CHLORIDE 90 mmol/L (98-107); GLUCOSE 104 mg/dL (75-110); POTASSIUM 4.6 mmol/L (3.6-5.0); TOTAL PROTEIN 5.6 g/dL (6.3-8.2)
[2020-07-10 07:24] LABS: PLATELET COUNT 51 10^3/uL (150-450)
[2020-07-10 07:27] LABS: ABSOLUTE LYMPHOCYTES# (MANUAL) 0.6 10^3/uL (0.5-4.7); ABSOLUTE MONOCYTES # (MANUAL) 0.3 10^3/uL (0.1-1.4); BAND NEUTROPHILS % (MANUAL) 5 % (3-5); BASOPHILS % (MANUAL) 0 % (0-2); EOSINOPHILS % (MANUAL) 0 % (0-6); LYMPHOCYTES % (MANUAL) 7 % (13-45); MONOCYTES % (MANUAL) 3 % (3-13); SEGMENTED NEUTROPHILS % (MAN) 81 % (42-78); TOTAL CELLS COUNTED 100
[2020-07-10 07:29] LABS: POLYCHROMASIA SLIGHT
[2020-07-10 07:30] LABS: ANISOCYTOSIS 1+; PLATELET COMMENT DECREASED; POIKILOCYTOSIS SLIGHT; STOMATOCYTES SLIGHT; TEAR DROP CELLS SLIGHT
[2020-07-10 07:31] LABS: METAMYELOCYTES % (MANUAL) 3 % (0-1); PROMYELOCYTES % (MANUAL) 1 % (0)
[2020-07-10] MEDS: INSULIN REG, HUMAN 100 UNIT/ML 3 ML VIAL (PYX) SUBCUT SCH (08:50)
[2020-07-10] MEDS: COLCHICINE 0.6 MG TABLET PO SCH (09:19)
[2020-07-10] MEDS: PANTOPRAZOLE SODIUM 40 MG TABLET.DR PO SCH (09:19)
[2020-07-10] MEDS: CARVEDILOL 12.5 MG TABLET PO SCH ×2 (09:20→21:41)
[2020-07-10] MEDS: FUROSEMIDE 20 MG TABLET PO SCH ×3 (09:20→18:08)
[2020-07-10] MEDS: DOCUSATE SODIUM 100 MG CAPSULE PO SCH ×2 (09:20→18:08)
[2020-07-10] MEDS: LIDOCAINE 5% (700 MG) TRANSDERMAL ADH..PATCH TP SCH (10:08)
[2020-07-10] MEDS: CYCLOBENZAPRINE HCL 10 MG TABLET PO PRN ×2 (10:10→20:33)
[2020-07-10] MEDS ORDERED: SODIUM CHLORIDE 1 GM TABLET PO SCH (11:00)
[2020-07-10 11:31] LABS: ABSOLUTE RETICS # 0.063 10^6/uL (0.028-0.122); RETICULOCYTE COUNT (AUTO) 2.71 % (0.66-2.85)
[2020-07-10 12:47] LABS: IRON(TIBC) < 10.1 ug/dL (49-181)
[2020-07-10] MEDS ORDERED: IRON SUCROSE COMPLEX INJ/PF 100 MG/5 ML SDV IV ONE (17:33)
--- NOTE | 2020-07-10 17:40 | PDOC PROGRESS REPORT ---
Subjective Subjective:: Patient admitted with severe hyponatremia, given demeclocycline and salt tablets in ICU, sodium with very slow gradual improvement initially then sodium dropped off again after he was given a bolus of IV fluids for unknown reason overnight 07/09. Nephrology consulted and the case was discussed with him in detail. Patient given oral Lasix 3 times daily as well as sodium tablets 3 times daily. He has rather severe acute on chronic bilateral lower extremity edema. He has known chronic cirrhosis with elevated bilirubin and ammonia currently on rifaximin and lactulose has been stopped due to diarrhea. Hemoglobin and WBC are lower. Sodium down to 122.7. And creatinine is the same as yesterday at 1.68. Patient may benefit from urea or tolvaptan, defer to nephrology. Reason For Visit: HYPERKALEMIA,HYPONATREMIA Physical Exam Vital Signs: Temp Pulse Resp BP Pulse Ox 97.3 F 66 22 H 127/54 H 94 07/10/20 16:30 07/10/20 16:30 07/10/20 16:30 07/10/20 16:30 07/10/20 16:30 Intake & Output 07/09/20 07/10/20 07/11/20 06:59 06:59 06:59 Intake Total 2219 3463 Output Total 3750 2200 Balance -1531 1263 Weight 137.9 kg 146.3 kg General appearance: PRESENT: no acute distress, morbidly obese, well-developed, well-nourished Head exam: PRESENT: atraumatic, normocephalic Eye exam: PRESENT: conjunctiva pink, other - Prosthetic right eye Mouth exam: PRESENT: moist Respiratory exam: PRESENT: clear to auscultation lul. ABSENT: rales, rhonchi, wheezes Cardiovascular exam: PRESENT: RRR. ABSENT: diastolic murmur, rubs, systolic murmur GI/Abdominal exam: PRESENT: normal bowel sounds, soft. ABSENT: distended, guarding, mass, organolmegaly, rebound, tenderness Extremities exam: PRESENT: pedal edema, +2 edema Neurological exam: PRESENT: alert, awake, oriented to person, oriented to place, oriented to time, oriented to situation Psychiatric exam: PRESENT: appropriate affect, normal mood Skin exam: PRESENT: dry, intact, warm Results Laboratory Results: 07/10/20 05:59 07/10/20 05:59 07/10/20 07/10/20 07/10/20 05:59 05:59 10:35 WBC 9.2 RBC 2.40 L Hgb 8.4 L Hct 23.4 L MCV 98 H MCH 34.9 H MCHC 35.8 RDW 15.9 H Plt Count 51 L Seg Neutrophils % Not Reportable Retic Count (auto) 2.71 Sodium 122.7 L Potassium 4.6 Chloride 90 L Carbon Dioxide 24 Anion Gap 9 BUN 36 H Creatinine 1.68 H Est GFR ( Amer) 51 L Glucose 104 Calcium 8.0 L Magnesium 1.8 Iron TIBC Ferritin Total Bilirubin 1.8 H AST 80 H Alkaline Phosphatase 117 Ammonia Total Protein 5.6 L Albumin 2.7 L Vitamin B12 Folate 07/10/20 07/10/20 10:35 10:35 WBC RBC Hgb Hct MCV MCH MCHC RDW Plt Count Seg Neutrophils % Retic Count (auto) Sodium Potassium Chloride Carbon Dioxide Anion Gap BUN Creatinine Est GFR ( Amer) Glucose Calcium Magnesium Iron < 10.1 L TIBC 254 Ferritin 128.00 Total Bilirubin AST Alkaline Phosphatase Ammonia 52.5 H Total Protein Albumin Vitamin B12 > 1000.0 H Folate 18.10 07/06/20 07/06/20 07/06/20 00:23 00:23 03:37 Creatine Kinase 195 H 184 H CK-MB (CK-2) 4.09 Troponin I < 0.012 NT-Pro-B Natriuret Pep 07/07/20 06:05 Creatine Kinase CK-MB (CK-2) Troponin I NT-Pro-B Natriuret Pep 1540 H Impressions: Lumbar Spine X-Ray 07/06/20 00:05 IMPRESSION: No acute bony injury is identified. Chest X-Ray 07/09/20 00:00 IMPRESSION: Cardiomegaly and low inspiratory lung volumes without a superimposed acute cardiopulmonary process. Assessment and Plan - Diagnosis (1) Hyperammonemia Is this a current diagnosis for this admission?: Yes Plan: -Continue rifaximin Lactulose being held for diarrhea. (2) Chronic liver disease and cirrhosis Is this a current diagnosis for this admission?: Yes (3) Anemia Qualifiers: Anemia type: iron deficiency Iron deficiency anemia type: unspecified iron deficiency Qualified Code(s): D50.9 - Iron deficiency anemia, unspecified Is this a current diagnosis for this admission?: Yes Plan: Labs consistent with iron deficiency anemia Given Venofer, can take daily oral iron provided he is not getting constipated Trend CBC No signs of blood loss (4) Hyperkalemia Is this a current diagnosis for this admission?: Yes Plan: Resolved (5) Hyponatremia Is this a current diagnosis for this admission?: Yes Plan: Per previous physician: "This is a chronic issue for this patient. Sodium is up to 126 today. Continue to monitor sodium levels. Consider discontinuing demeclocycline and adding a fluid restriction." 07/10/2020 Nephrology consulted, discussed the case with them in detail Stopped demeclocycline as this is likely ineffective and puts patient at risk for side effects and drug interactions Increased sodium tablet frequency to 3 times daily, continue Lasix Consider tolvaptan or urea treatment (6) Leucocytosis Qualifiers: Leukocytosis type: unspecified Qualified Code(s): D72.829 - Elevated white blood cell count, unspecified Is this a current diagnosis for this admission?: Yes Plan: Resolved (7) Acute on chronic diastolic CHF (congestive heart failure) Is this a current diagnosis for this admission?: Yes Plan: TTE done this admission showed EF 60 to 65% with grade 2 diastolic dysfunction and moderate pulmonary hypertension with RVSP 50 to 55 mmHg After adequate volume control with diuretics, may benefit from repeat echocardi ogram to rule out other forms of pulmonary hypertension could be underlying, could benefit from RHC in the future - Time Time Spent with patient: 25-34 minutes Medications reviewed and adjusted accordingly: Yes Anticipated Discharge Disposition: Intermediate Facility Anticipated Discharge Timeframe: within 72 hours - Inpatient Certification Based on my medical assessment, after consideration of the patient's comorbidities, presenting symptoms, or acuity I expect that the services needed warrant INPATIENT care.: Yes I certify that my determination is in accordance with my understanding of Medicare's requirements for reasonable and necessary INPATIENT services [42 CFR 412.3e].: Yes Medical Necessity: Significant Comorbidiites Make Outpatient Treatment Too Risky, Need Close Monitoring Due to Risk of Patient Decompensation, Risk of Complication if Not Cared For in Hospital, Risk of Diagnosis Which Will Require Inpatient Eval/Care/Monitoring
[2020-07-10] MEDS: SODIUM CHLORIDE 1 GM TABLET PO SCH (18:09)
[2020-07-10] MEDS ORDERED: IRON SUCROSE COMPLEX 500 MG in NORMAL SALINE 250 ML IV ONE (19:00)
[2020-07-10] MEDS: NORMAL SALINE 1000 ML 1,000 ML IV PRN (19:01)
[2020-07-10] MEDS: IPRATROPIUM/ALBUTEROL 0.5-2.5 MG/3 ML AMPUL NEB PRN (20:54)
[2020-07-10] MEDS: RIFAXIMIN 550 MG TABLET PO SCH (21:40)
--- NOTE | 2020-07-10 22:00 | PDOC CONSULTATION ---
Consultation Consult Date: 07/10/20 Provider Consulted: BENJAMIN SALEEM Consult reason:: Hyponatremia History of Present Illness Admission Date/PCP: 07/06/20 14:50 History of Present Illness: NOAH LANGLEY is a 60 year old male with history of alcoholic liver disease, diastolic congestive heart failure, atrial fibrillation, and gout who was admitted on July 06 presenting with generalized weakness and obtundation. Initial work-up showed a sodium of 114, potassium of 7.6 and creatinine of 2.24. Initial serum osmolality was 252, urine osmolality of 297 and urine sodium of 34. Patient has severe bilateral lower extremity edema and scrotal swelling initial physical examination of admitting physician. And spironolactone 100 mg every 12 hours. Patient was admitted in the ICU and was given salt tablets, demeclocycline and initial IV Lasix drip which seems to have been discontinued after 24 hours and was switched to oral low-dose Lasix. The spironolactone was discontinued. Sodium level level has improved to 126.6 yesterday but decrease again to 122.7 today. For whatever reason he was given a liter of normal saline bolus yesterday. The hyperkalemia was successfully corrected currently resolved. Patient's kidney function has improved from creatinine of 2.24 to current of 1.68. He is passing adequate amount of urine output anywhere between 1400 to 2300 mL for the past 24 to 48 hours. Today I tried to talk to patient to get a little bit more history but he is not a very good historian. He relates that he just moved here in [place] from [facility] about 3 weeks ago. He seems to be just following up with a regular primary care doctor but mentioned that he has a liver specialist in [place]. He states that he was told that he has end-stage liver disease secondary to alcohol. He quit alcohol in 2016. He moved down here after his fiance this year to live with his sister in [place]. He denies any problem with hyponatremia previously that he is aware of her know about. He is also not sure about problems and does not know his baseline. He said he drinks a gallon of water daily. He admits having this leg swelling for a while but unable to tell me how long. He was having some diarrhea possibly due to the lactulose. He states that his last bowel movement was this morning and it seems to be formed. He has some dry cough but denies any exposure to anybody with COVID. He denies any chest pains, shortness of breath, nausea or vomiting. Past Medical History Cardiac Medical History: Reports: Atrial Fibrillation EENT Medical History: Reports: Other - Had trauma to his eyes at 12 years old GI Medical History: Reports: Cirrhosis - Secondary to alcohol Musculoskeltal Medical History: Reports: Arthritis, Gout Past Surgical History Past Surgical History: Reports: None Social History Information Source: Patient Lives with: Family - Sister Smoking Status: Never Smoker Electronic Cigarette use?: No Frequency of Alcohol Use: None Hx Recreational Drug Use: No Drugs: None Hx Prescription Drug Abuse: No - Advance Directive Resuscitation Status: Full Code Family History Family History: CAD - Parents Parental Family History Reviewed: Yes Children Family History Reviewed: NA Sibling(s) Family History Reviewed.: Yes Medication/Allergy Home Medications: Carvedilol [Coreg 12.5 mg Tablet] 12.5 mg PO Q12 07/06/20 Colchicine [Colcrys 0.6 mg Tablet] 1 tab PO BID 07/06/20 Furosemide [Lasix 20 mg Tablet] 20 mg PO BID 07/06/20 Gabapentin [Neurontin] 800 mg PO TID 07/06/20 Multivitamin [Tab-A-Renny] 1 each PO DAILY 07/06/20 Omeprazole 40 mg PO DAILY 07/06/20 Ondansetron [Zofran Odt 4 mg Tablet] 4 mg PO BIDP PRN 07/06/20 Rifaximin [Xifaxan 550 Mg Tablet] 550 mg PO QHS 07/06/20 Spironolactone [Aldactone 100 mg Tablet] 1 tab PO Q12 07/06/20 Turmeric/Turmeric Root Extract [Turmeric 500 mg Capsule] 1 each PO DAILY 07/06/20 Allergies/Adverse Reactions: No Known Allergies Allergy (Unverified 07/06/20 01:24) Review of Systems All systems: reviewed and no additional remarkable complaints except as stated Review of Systems: Constitutional: ABSENT: chills, fatigue, fever(s), headache(s), weight gain, weight loss; weakness Eyes: ABSENT: visual disturbances Ears: ABSENT: hearing changes Cardiovascular: ABSENT: chest pain, dyspnea on exertion, orthropnea, palpitations; lower extremity edema Respiratory: ABSENT: cough, dyspnea, hemoptysis Gastrointestinal: ABSENT: abdominal pain, constipation, hematemesis, hematochezia, nausea, vomiting; admits diarrhea Genitourinary: ABSENT: dysuria, hematuria Musculoskeletal: ABSENT: joint swelling Integumentary: ABSENT: rash, wounds Neurological: ABSENT: abnormal gait, abnormal speech, confusion, dizziness, focal weakness, numbness, syncope Psychiatric: ABSENT: anxiety, depression Endocrine: ABSENT: cold intolerance, heat intolerance, polydipsia, polyuria Hematologic/Lymphatic: ABSENT: easy bleeding, easy bruising, lymphadenopathy Physical Exam Vital Signs: Temp Pulse Resp BP Pulse Ox 97.9 F 74 24 H 101/49 L 96 07/10/20 07:39 07/10/20 07:39 07/10/20 07:39 07/10/20 07:39 07/10/20 07:39 Intake & Output 07/09/20 07/10/20 07/11/20 06:59 06:59 06:59 Intake Total 2219 3463 Output Total 3750 2200 Balance -1531 1263 Weight 137.9 kg 146.3 kg Exam: General appearance: No acute distress, cooperative, well-developed, well- nourished Head exam: PRESENT: atraumatic, normocephalic Eye exam: PRESENT: Conjunctiva pale, EOMI, PERRLA. Right prosthetic eye ABSENT: conjunctival injection, scleral icterus Mouth exam: PRESENT: moist, neck supple, tongue midline Neck exam: PRESENT: full ROM. ABSENT: carotid bruit, JVD, lymphadenopathy, thyromegaly Respiratory exam: PRESENT: Diminished to auscultation bilaterally. ABSENT: rales, rhonchi, stridor, wheezes Cardiovascular exam: PRESENT: RRR, +S1, +S2. ABSENT: systolic murmur Pulses: PRESENT: normal radial pulses, normal dorsalis pedis pulses GI/Abdominal exam: PRESENT: normal bowel sounds, soft. Mild subcutaneous edema ABSENT: guarding, mass, tenderness Rectal exam: Deferred Extremities exam: PRESENT: full ROM. Grade 3-4 bilateral lower extremity pitting edema up to the thighs and hips especially the dependent portions ABSENT: calf tenderness Musculoskeletal: PRESENT: full ROM. ABSENT: deformity Neurological exam: PRESENT: alert, Awake, Oriented to person, Oriented to place, Oriented to time, reflexes normal, CN II-XII grossly intact. ABSENT: motor sensory deficit Psychiatric exam: PRESENT: appropriate affect, normal mood. ABSENT: homicidal ideation, suicidal ideation Skin exam: PRESENT: intact, dry, warm. ABSENT: rash Results Laboratory Results: 07/10/20 05:59 07/10/20 05:59 07/10/20 07/10/20 07/10/20 05:59 05:59 10:35 WBC 9.2 RBC 2.40 L Hgb 8.4 L Hct 23.4 L MCV 98 H MCH 34.9 H MCHC 35.8 RDW 15.9 H Plt Count 51 L Seg Neutrophils % Not Reportable Retic Count (auto) 2.71 Sodium 122.7 L Potassium 4.6 Chloride 90 L Carbon Dioxide 24 Anion Gap 9 BUN 36 H Creatinine 1.68 H Est GFR ( Amer) 51 L Glucose 104 Calcium 8.0 L Magnesium 1.8 Total Bilirubin 1.8 H AST 80 H Alkaline Phosphatase 117 Ammonia Total Protein 5.6 L Albumin 2.7 L 07/10/20 10:35 WBC RBC Hgb Hct MCV MCH MCHC RDW Plt Count Seg Neutrophils % Retic Count (auto) Sodium Potassium Chloride Carbon Dioxide Anion Gap BUN Creatinine Est GFR ( Amer) Glucose Calcium Magnesium Total Bilirubin AST Alkaline Phosphatase Ammonia 52.5 H Total Protein Albumin 07/06/20 07/06/20 07/06/20 00:23 00:23 03:37 Creatine Kinase 195 H 184 H CK-MB (CK-2) 4.09 Troponin I < 0.012 NT-Pro-B Natriuret Pep 07/07/20 06:05 Creatine Kinase CK-MB (CK-2) Troponin I NT-Pro-B Natriuret Pep 1540 H Impressions: Lumbar Spine X-Ray 07/06/20 00:05 IMPRESSION: No acute bony injury is identified. Chest X-Ray 07/09/20 00:00 IMPRESSION: Cardiomegaly and low inspiratory lung volumes without a superimposed acute cardiopulmonary process. Assessment & Plan - Diagnosis (1) Hyponatremia Is this a current diagnosis for this admission?: Yes Plan: In the background of liver disease/cirrhosis diastolic congestive heart failure with obvious clinical fluid retention and lower extremity edema, I agree that this is hypervolemic hypotonic hyponatremia. Both his liver disease and congestive heart failure causes activation of the RAAS system including the ADH resulting in fluid retention. This patient might have an underlying chronic hyponatremia but we do not know his baseline since we do not have any previous records. Attempted fluid bolus of normal saline yesterday because the decrease of his sodium from 126-122. As this patient would need maintenance diuretics due to his underlying liver disease, I will try to increase his diuretics first before giving tolvaptan. If this does not work then I would need to stop his diuretics before initiating tolvaptan. Agree with discontinuation of demeclocycline as it is usually ineffective. May continue the salt tablets for now. Will recheck sodium level tomorrow. (2) Acute kidney injury Is this a current diagnosis for this admission?: Yes Plan: Patient's creatinine is improved from 2.11 to current of 1.6. Acute worsening of the kidney function initially could be due to prerenal azotemia due to the combination of cirrhosis and diastolic congestive heart failure. Baseline kidney function is unknown but patient may also have an underlying chronic kidney disease. Patient has an adequate urine output. (3) Chronic liver disease and cirrhosis Is this a current diagnosis for this admission?: Yes Plan: By history patient reports that he has alcoholic liver disease. (4) Hyperammonemia Is this a current diagnosis for this admission?: Yes Plan: Defer to the hospitalist service. (5) Congestive heart failure with left ventricular diastolic dysfunction Qualifiers: Congestive heart failure chronicity: chronic Qualified Code(s): I50.32 - Chronic diastolic (congestive) heart failure Is this a current diagnosis for this admission?: Yes Plan: Echo showed ejection fraction of 60 to 65%, grade 2/4 mild to moderate diastolic dysfunction and moderate pulmonary hypertension. (6) Anemia Qualifiers: Anemia type: iron deficiency Iron deficiency anemia type: unspecified iron deficiency Qualified Code(s): D50.9 - Iron deficiency anemia, unspecified Is this a current diagnosis for this admission?: Yes - Notes Notes: Discussed with the hospitalist, Dr. Blue. Thank you very much for this consultation. I will follow the patient with you.
[2020-07-10] MEDS: PHARMACY COMMUNICATION ORDER MC SCH (23:07)
[2020-07-11] MEDS: IPRATROPIUM/ALBUTEROL 0.5-2.5 MG/3 ML AMPUL NEB PRN ×3 (00:23→20:36)
[2020-07-11] MEDS: CYCLOBENZAPRINE HCL 10 MG TABLET PO PRN ×2 (04:05→21:45)
[2020-07-11] MEDS: PANTOPRAZOLE SODIUM 40 MG TABLET.DR PO SCH (05:17)
[2020-07-11] MEDS: GABAPENTIN 400 MG CAPSULE PO SCH ×3 (05:17→21:44)
[2020-07-11 07:52] LABS: ANION GAP 7 (5-19); BLOOD UREA NITROGEN 42 mg/dL (7-20); CALCIUM 8.3 mg/dL (8.4-10.2); CARBON DIOXIDE 23 mmol/L (22-30); CHLORIDE 95 mmol/L (98-107); GLUCOSE 107 mg/dL (75-110)
[2020-07-11] MEDS: INSULIN REG, HUMAN 100 UNIT/ML 3 ML VIAL (PYX) SUBCUT SCH (10:18)
[2020-07-11] MEDS: LIDOCAINE 5% (700 MG) TRANSDERMAL ADH..PATCH TP SCH (10:24)
[2020-07-11] MEDS: FERROUS SULFATE 325 MG TABLET PO SCH (10:25)
[2020-07-11] MEDS: COLCHICINE 0.6 MG TABLET PO SCH (10:25)
[2020-07-11] MEDS: FUROSEMIDE 20 MG TABLET PO SCH ×3 (10:25→18:48)
[2020-07-11] MEDS: CARVEDILOL 12.5 MG TABLET PO SCH ×2 (10:25→21:45)
[2020-07-11] MEDS: SODIUM CHLORIDE 1 GM TABLET PO SCH ×3 (10:25→18:47)
[2020-07-11] MEDS: DOCUSATE SODIUM 100 MG CAPSULE PO SCH ×2 (10:25→18:47)
[2020-07-11 11:06] LABS: PATH REVIEW PATHOLOGIST REVIEWED
[2020-07-11] MEDS: ALBUMIN HUMAN 12.5 GM/50 ML RTUINJ IV SCH ×2 (12:07→12:45)
--- NOTE | 2020-07-11 17:41 | PDOC PROGRESS REPORT ---
Subjective Progress Note for:: 07/11/20 Subjective:: Patient is sleeping when I entered the room opens his eyes a little bit but went back to sleep. His urine output increased with increasing Lasix yesterday to 2575 mL for the past 24 hours total with a balance of -310. Reason For Visit: HYPERKALEMIA,HYPONATREMIA Physical Exam Vital Signs: Temp Pulse Resp BP Pulse Ox 98.4 F 76 17 124/54 L 97 07/11/20 03:22 07/11/20 03:22 07/11/20 03:22 07/11/20 03:22 07/11/20 03:22 Intake & Output 07/10/20 07/11/20 07/12/20 06:59 06:59 06:59 Intake Total 3463 2315 Output Total 2200 2625 Balance 1263 -310 Weight 146.3 kg 140.6 kg Exam: General appearance: PRESENT: no acute distress, cooperative, well-developed, well-nourished Head exam: PRESENT: atraumatic, normocephalic Eye exam: PRESENT: conjunctiva pale, PERRLA. Right eye prosthesis ABSENT: scleral icterus Neck exam: ABSENT: JVD Respiratory exam: PRESENT: Diminished breath sounds. ABSENT: crackles, rales, rhonchi, unlabored, wheezes Cardiovascular exam: PRESENT: Regular rate rhythm -+S1, +S2. ABSENT: diastolic murmur, systolic murmur GI/Abdominal exam: PRESENT: normal bowel sounds, soft. ABSENT: guarding, mass, tenderness Extremities exam: Grade 3-4 bilateral lower extremity pitting edema Neurological exam: PRESENT: Asleep but arousable Skin exam: PRESENT: dry, warm, Results Laboratory Results: 07/10/20 05:59 07/11/20 07:00 07/10/20 07/10/20 07/10/20 10:35 10:35 10:35 Retic Count (auto) 2.71 Sodium Potassium Chloride Carbon Dioxide Anion Gap BUN Creatinine Est GFR ( Amer) Glucose Calcium Iron < 10.1 L TIBC 254 Ferritin 128.00 Ammonia 52.5 H Vitamin B12 > 1000.0 H Folate 18.10 07/11/20 07:00 Retic Count (auto) Sodium 124.7 L Potassium 5.0 Chloride 95 L Carbon Dioxide 23 Anion Gap 7 BUN 42 H Creatinine 1.82 H Est GFR ( Amer) 46 L Glucose 107 Calcium 8.3 L Iron TIBC Ferritin Ammonia Vitamin B12 Folate 07/06/20 07/06/20 07/06/20 00:23 00:23 03:37 Creatine Kinase 195 H 184 H CK-MB (CK-2) 4.09 Troponin I < 0.012 NT-Pro-B Natriuret Pep 07/07/20 06:05 Creatine Kinase CK-MB (CK-2) Troponin I NT-Pro-B Natriuret Pep 1540 H Impressions: Lumbar Spine X-Ray 07/06/20 00:05 IMPRESSION: No acute bony injury is identified. Chest X-Ray 07/09/20 00:00 IMPRESSION: Cardiomegaly and low inspiratory lung volumes without a superimposed acute cardiopulmonary process. Assessment & Plan - Diagnosis (1) Hyponatremia Is this a current diagnosis for this admission?: Yes Plan: Withthe background of liver disease/cirrhosis, diastolic congestive heart failure with obvious clinical fluid retention and lower extremity edema, I agree that this is hypervolemic hypotonic hyponatremia. Both his liver disease and congestive heart failure causes activation of the RAAS system including the ADH resulting in fluid retention. This patient might have an underlying chronic hyponatremia but we do not know his baseline since we do not have any previous records. Mental status is affected by hyponatremia. As this patient would need maintenance diuretics due to his underlying liver disease, I increased his diuretics first before giving tolvaptan. If this does not work then I would need to stop his diuretics before initiating tolvaptan. Patient sodium has risen from 122.7-124.7. Continue same dose of Lasix. Continue to hold tolvaptan for now. Agree with discontinuation of demeclocycline as it is usually ineffective. May continue the salt tablets for now. Continue to monitor sodium level. (2) Acute kidney injury Is this a current diagnosis for this admission?: Yes Plan: Patient's creatinine is improved from 2.11 to current of 1.6. Acute worsening of the kidney function initially could be due to prerenal azotemia due to the combination of cirrhosis and diastolic congestive heart failure. Baseline kidney function is unknown but patient may also have an underlying chronic kidney disease. Patient has an adequate urine output. Creatinine went up from 1.6-1.8 due to increasing diuretics as expected. Continue to monitor. (3) Chronic liver disease and cirrhosis Is this a current diagnosis for this admission?: Yes Plan: By history patient reports that he has alcoholic liver disease. (4) Hyperammonemia Is this a current diagnosis for this admission?: Yes Plan: Improving. It is highly likely that patient's mental status is affected by high ammonia level as well as hyponatremia. (5) Congestive heart failure with left ventricular diastolic dysfunction Qualifiers: Congestive heart failure chronicity: chronic Qualified Code(s): I50.32 - Chronic diastolic (congestive) heart failure Is this a current diagnosis for this admission?: Yes Plan: Echo showed ejection fraction of 60 to 65%, grade 2/4 mild to moderate diastolic dysfunction and moderate pulmonary hypertension. (6) Anemia Qualifiers: Anemia type: iron deficiency Iron deficiency anemia type: unspecified iron deficiency Qualified Code(s): D50.9 - Iron deficiency anemia, unspecified Is this a current diagnosis for this admission?: Yes - Time Time with patient: 15-25 minutes
--- NOTE | 2020-07-11 17:49 | PDOC PROGRESS REPORT ---
Subjective Subjective:: Patient admitted with severe hyponatremia, given demeclocycline and salt tablets in ICU, sodium with very slow gradual improvement initially then sodium dropped off again after he was given a bolus of IV fluids for unknown reason overnight 07/09. Nephrology consulted and the case was discussed with him in detail. Patient given oral Lasix 3 times daily as well as sodium tablets 3 times daily. He has rather severe acute on chronic bilateral lower extremity edema. He has known chronic cirrhosis with elevated bilirubin and ammonia currently on rifaximin and lactulose has been stopped due to diarrhea. Hemoglobin and WBC are lower. Sodium down to 122.7. And creatinine is the same as yesterday at 1.68. Patient may benefit from urea or tolvaptan, defer to nephrology. 07/11/2020 Sodium now gradually rising on higher dose of salt tablets. Creatinine is also rising a bit now at 1.82. Sodium is currently 124.7. Platelets have dropped significantly and we are holding pharmacologic DVT prophylaxis at this time. Follow-up CBC in the morning. We will add thigh-high compression stockings as well to help with his lower extremity edema which is actually already looking somewhat better today. I discussed the case with nephrology today and they are continuing to adjust medications to help with increasing sodium. Our goal would be to get him up to a sodium of 130. Reason For Visit: HYPERKALEMIA,HYPONATREMIA Physical Exam Vital Signs: Temp Pulse Resp BP Pulse Ox 98.4 F 86 21 H 124/54 L 97 07/11/20 03:22 07/11/20 11:19 07/11/20 11:19 07/11/20 03:22 07/11/20 11:19 Intake & Output 07/10/20 07/11/20 07/12/20 06:59 06:59 06:59 Intake Total 3463 2315 392 Output Total 2200 2625 1200 Balance 8753 -887 -568 Weight 146.3 kg 140.6 kg Exam: General appearance: PRESENT: no acute distress, morbidly obese, well-developed, well-nourished, states his edema is a bit less today Head exam: PRESENT: atraumatic, normocephalic Eye exam: PRESENT: conjunctiva pink, other - Prosthetic right eye Mouth exam: PRESENT: moist Respiratory exam: PRESENT: clear to auscultation lul. ABSENT: rales, rhonchi, wheezes Cardiovascular exam: PRESENT: RRR. ABSENT: diastolic murmur, rubs, systolic murmur GI/Abdominal exam: PRESENT: normal bowel sounds, soft. ABSENT: distended, guarding, mass, organolmegaly, rebound, tenderness Extremities exam: PRESENT: pedal edema, +2 edema mildly improved Neurological exam: PRESENT: alert, awake, oriented to person, oriented to place, oriented to time, oriented to situation Psychiatric exam: PRESENT: appropriate affect, normal mood Skin exam: PRESENT: dry, intact, warm Results Laboratory Results: 07/10/20 05:59 07/11/20 07:00 07/11/20 07:00 Sodium 124.7 L Potassium 5.0 Chloride 95 L Carbon Dioxide 23 Anion Gap 7 BUN 42 H Creatinine 1.82 H Est GFR ( Amer) 46 L Glucose 107 Calcium 8.3 L 07/06/20 07/06/20 07/06/20 00:23 00:23 03:37 Creatine Kinase 195 H 184 H CK-MB (CK-2) 4.09 Troponin I < 0.012 NT-Pro-B Natriuret Pep 07/07/20 06:05 Creatine Kinase CK-MB (CK-2) Troponin I NT-Pro-B Natriuret Pep 1540 H Impressions: Lumbar Spine X-Ray 07/06/20 00:05 IMPRESSION: No acute bony injury is identified. Chest X-Ray 07/09/20 00:00 IMPRESSION: Cardiomegaly and low inspiratory lung volumes without a superimposed acute cardiopulmonary process. Assessment and Plan - Diagnosis (1) Hyperammonemia Is this a current diagnosis for this admission?: Yes (2) Chronic liver disease and cirrhosis Is this a current diagnosis for this admission?: Yes (3) Anemia Qualifiers: Anemia type: iron deficiency Iron deficiency anemia type: unspecified iron deficiency Qualified Code(s): D50.9 - Iron deficiency anemia, unspecified Is this a current diagnosis for this admission?: Yes (4) Hyperkalemia Is this a current diagnosis for this admission?: Yes (5) Hyponatremia Is this a current diagnosis for this admission?: Yes Plan: Per previous physician: "This is a chronic issue for this patient. Sodium is up to 126 today. Continue to monitor sodium levels. Consider discontinuing demeclocycline and adding a fluid restriction." 07/10/2020 Nephrology consulted, discussed the case with them in detail Stopped demeclocycline as this is likely ineffective and puts patient at risk for side effects and drug interactions Increased sodium tablet frequency to 3 times daily, continue Lasix Consider tolvaptan or urea treatment 07/11/2020 Sodium up to 124.7 3 times daily oral Lasix, salt tablets May benefit from tolvaptan or urea (6) Leucocytosis Qualifiers: Leukocytosis type: unspecified Qualified Code(s): D72.829 - Elevated white blood cell count, unspecified Is this a current diagnosis for this admission?: Yes (7) Acute on chronic diastolic CHF (congestive heart failure) Is this a current diagnosis for this admission?: Yes (8) Alcoholic cirrhosis of liver Qualifiers: Ascites presence: unspecified Qualified Code(s): K70.30 - Alcoholic cirrhosis of liver without ascites Is this a current diagnosis for this admission?: Yes Plan: Diagnosed within the past year per patient Low albumin, elevated bilirubin, LFTs only mildly elevated Aldactone held due to hyponatremia, Lasix dosing adjusted (9) Thrombocytopenia Is this a current diagnosis for this admission?: Yes Plan: Unknown etiology, presumably due to chronic cirrhosis and bone marrow suppression Trend CBC (10) Bilateral lower extremity edema Is this a current diagnosis for this admission?: Yes Plan: Chronic Diuresis Compression stockings thigh-high - Time Time Spent with patient: 25-34 minutes Medications reviewed and adjusted accordingly: Yes Anticipated Discharge Disposition: Home, Self Care Anticipated Discharge Timeframe: within 36 hours - Inpatient Certification Based on my medical assessment, after consideration of the patient's comorbiditi es, presenting symptoms, or acuity I expect that the services needed warrant INPATIENT care.: Yes I certify that my determination is in accordance with my understanding of [facility]'s requirements for reasonable and necessary INPATIENT services [42 CFR 412.3e].: Yes Medical Necessity: Significant Comorbidiites Make Outpatient Treatment Too Risky, Need Close Monitoring Due to Risk of Patient Decompensation, Risk of Complication if Not Cared For in Hospital, Risk of Diagnosis Which Will Require Inpatient Eval/Care/Monitoring
[2020-07-11] MEDS: RIFAXIMIN 550 MG TABLET PO SCH (21:44)
[2020-07-11] MEDS: PHARMACY COMMUNICATION ORDER MC SCH (21:45)
[2020-07-12] MEDS: GABAPENTIN 400 MG CAPSULE PO SCH ×3 (05:10→21:55)
[2020-07-12] MEDS: CYCLOBENZAPRINE HCL 10 MG TABLET PO PRN ×2 (05:10→15:23)
[2020-07-12] MEDS: PANTOPRAZOLE SODIUM 40 MG TABLET.DR PO SCH (05:10)
[2020-07-12 05:38] LABS: ANION GAP 10 (5-19); BLOOD UREA NITROGEN 45 mg/dL (7-20); CALCIUM 8.8 mg/dL (8.4-10.2); CARBON DIOXIDE 25 mmol/L (22-30); CHLORIDE 97 mmol/L (98-107); GLUCOSE 118 mg/dL (75-110); POTASSIUM 4.7 mmol/L (3.6-5.0)
[2020-07-12] MEDS: INSULIN REG, HUMAN 100 UNIT/ML 3 ML VIAL (PYX) SUBCUT SCH (08:19)
[2020-07-12] MEDS: DOCUSATE SODIUM 100 MG CAPSULE PO SCH ×2 (10:47→17:48)
[2020-07-12] MEDS: FUROSEMIDE 20 MG TABLET PO SCH ×3 (10:52→17:48)
[2020-07-12] MEDS: LIDOCAINE 5% (700 MG) TRANSDERMAL ADH..PATCH TP SCH (10:52)
[2020-07-12] MEDS: CARVEDILOL 12.5 MG TABLET PO SCH ×2 (10:52→21:55)
[2020-07-12] MEDS: SODIUM CHLORIDE 1 GM TABLET PO SCH ×3 (10:52→17:48)
[2020-07-12] MEDS: COLCHICINE 0.6 MG TABLET PO SCH (10:52)
[2020-07-12] MEDS: FERROUS SULFATE 325 MG TABLET PO SCH (10:52)
[2020-07-12 11:51] LABS: HEMATOCRIT 24.2 % (37.9-51.0); HEMOGLOBIN 8.5 g/dL (13.5-17.0); MEAN CORPUSCULAR HEMOGLOBIN 33.9 pg (27.0-33.4); MEAN CORPUSCULAR HGB CONC 34.9 g/dL (32.0-36.0); MEAN CORPUSCULAR VOLUME 97 fl (80-97); RED CELL DISTRIBUTION WIDTH 15.9 % (11.5-14.0); WHITE BLOOD COUNT 12.1 10^3/uL (4.0-10.5)
[2020-07-12 12:45] LABS: ABSOLUTE LYMPHOCYTES# (MANUAL) 1.5 10^3/uL (0.5-4.7); ABSOLUTE MONOCYTES # (MANUAL) 1.1 10^3/uL (0.1-1.4); BAND NEUTROPHILS % (MANUAL) 1 % (3-5); BASOPHILS % (MANUAL) 0 % (0-2); EOSINOPHILS % (MANUAL) 0 % (0-6); LYMPHOCYTES % (MANUAL) 5 % (13-45); MONOCYTES % (MANUAL) 9 % (3-13); SEGMENTED NEUTROPHILS % (MAN) 78 % (42-78); TOTAL CELLS COUNTED 100
[2020-07-12 12:47] LABS: ANISOCYTOSIS 1+; POIKILOCYTOSIS SLIGHT; POLYCHROMASIA 1+; TOXIC GRANULATION 1+
[2020-07-12 12:48] LABS: TEAR DROP CELLS SLIGHT
[2020-07-12] MEDS: IPRATROPIUM/ALBUTEROL 0.5-2.5 MG/3 ML AMPUL NEB PRN (13:35)
[2020-07-12] MEDS: BENZONATATE 100 MG CAPSULE PO PRN (16:03)
--- NOTE | 2020-07-12 20:18 | PDOC PROGRESS REPORT ---
Subjective Subjective:: Patient admitted with severe hyponatremia, given demeclocycline and salt tablets in ICU, sodium with very slow gradual improvement initially then sodium dropped off again after he was given a bolus of IV fluids for unknown reason overnight 07/09. Nephrology consulted and the case was discussed with him in detail. Patient given oral Lasix 3 times daily as well as sodium tablets 3 times daily. He has rather severe acute on chronic bilateral lower extremity edema. He has known chronic cirrhosis with elevated bilirubin and ammonia currently on rifaximin and lactulose has been stopped due to diarrhea. Hemoglobin and WBC are lower. Sodium down to 122.7. And creatinine is the same as yesterday at 1.68. Patient may benefit from urea or tolvaptan, defer to nephrology. 07/11/2020 Sodium now gradually rising on higher dose of salt tablets. Creatinine is also rising a bit now at 1.82. Sodium is currently 124.7. Platelets have dropped significantly and we are holding pharmacologic DVT prophylaxis at this time. Follow-up CBC in the morning. We will add thigh-high compression stockings as well to help with his lower extremity edema which is actually already looking somewhat better today. I discussed the case with nephrology today and they are continuing to adjust medications to help with increasing sodium. Our goal would be to get him up to a sodium of 130. 07/12/2020 Sodium is normal today finally. We will continue on his salt tablets and Lasix. Patient needs to go to SNF and he and his sister are in agreement with this and I will be looking for a facility for him in the near future. Creatinine has gone down and he is improved overall. He has no new complaints. Remove FMS as his stools although they are loose are very infrequent now. We will hold off on restarting his lactulose as this will undoubtedly causes diarrhea to return severely. Reason For Visit: HYPERKALEMIA,HYPONATREMIA Physical Exam Vital Signs: Temp Pulse Resp BP Pulse Ox 98.8 F 78 22 H 111/52 L 99 07/12/20 19:44 07/12/20 19:44 07/12/20 19:44 07/12/20 19:44 07/12/20 19:44 Intake & Output 07/11/20 07/12/20 07/13/20 06:59 06:59 06:59 Intake Total 2319 2962 960 Output Total 5135 9227 400 Balance -310 -2463 560 Weight 140.6 kg 146.7 kg Exam: General appearance: PRESENT: no acute distress, morbidly obese, well-developed, well-nourished, states he feels well and would like to go to rehab facility Head exam: PRESENT: atraumatic, normocephalic Eye exam: PRESENT: conjunctiva pink, other - Prosthetic right eye Mouth exam: PRESENT: moist Respiratory exam: PRESENT: clear to auscultation lul. ABSENT: rales, rhonchi, wheezes Cardiovascular exam: PRESENT: RRR. ABSENT: diastolic murmur, rubs, systolic murmur GI/Abdominal exam: PRESENT: normal bowel sounds, soft. ABSENT: distended, guarding, mass, organolmegaly, rebound, tenderness Extremities exam: PRESENT: pedal edema, +2 edema mildly improved Neurological exam: PRESENT: alert, awake, oriented to person, oriented to place, oriented to time, oriented to situation Psychiatric exam: PRESENT: appropriate affect, normal mood Skin exam: PRESENT: dry, intact, warm Results Laboratory Results: 07/12/20 11:42 07/12/20 05:10 07/12/20 07/12/20 07/12/20 05:10 05:10 10:17 WBC Cancelled Cancelled RBC Cancelled Cancelled Hgb Cancelled Cancelled Hct Cancelled Cancelled MCV Cancelled Cancelled MCH Cancelled Cancelled MCHC Cancelled Cancelled RDW Cancelled Cancelled Plt Count Cancelled Cancelled Seg Neutrophils % Cancelled Cancelled Sodium 131.8 L Potassium 4.7 Chloride 97 L Carbon Dioxide 25 Anion Gap 10 BUN 45 H Creatinine 1.41 H Est GFR ( Amer) > 60 Glucose 118 H Calcium 8.8 07/12/20 11:42 WBC 12.1 H RBC 2.50 L Hgb 8.5 L Hct 24.2 L MCV 97 MCH 33.9 H MCHC 34.9 RDW 15.9 H Plt Count Seg Neutrophils % Not Reportable Sodium Potassium Chloride Carbon Dioxide Anion Gap BUN Creatinine Est GFR ( Amer) Glucose Calcium 07/06/20 07/06/20 07/06/20 00:23 00:23 03:37 Creatine Kinase 195 H 184 H CK-MB (CK-2) 4.09 Troponin I < 0.012 NT-Pro-B Natriuret Pep 07/07/20 06:05 Creatine Kinase CK-MB (CK-2) Troponin I NT-Pro-B Natriuret Pep 1540 H Impressions: Lumbar Spine X-Ray 07/06/20 00:05 IMPRESSION: No acute bony injury is identified. Chest X-Ray 07/09/20 00:00 IMPRESSION: Cardiomegaly and low inspiratory lung volumes without a superimposed acute cardiopulmonary process. Assessment and Plan - Diagnosis (1) Hyperammonemia Is this a current diagnosis for this admission?: Yes Plan: -Continue rifaximin Lactulose being held for diarrhea. Continue holding (2) Chronic liver disease and cirrhosis Is this a current diagnosis for this admission?: Yes Plan: Needs follow-up with GI outpatient (3) Anemia Qualifiers: Anemia type: iron deficiency Iron deficiency anemia type: unspecified iron deficiency Qualified Code(s): D50.9 - Iron deficiency anemia, unspecified Is this a current diagnosis for this admission?: Yes (4) Hyperkalemia Is this a current diagnosis for this admission?: Yes (5) Hyponatremia Is this a current diagnosis for this admission?: Yes Plan: Per previous physician: "This is a chronic issue for this patient. Sodium is up to 126 today. Continue to monitor sodium levels. Consider discontinuing demeclocycline and adding a fluid restriction." 07/10/2020 Nephrology consulted, discussed the case with them in detail Stopped demeclocycline as this is likely ineffective and puts patient at risk for side effects and drug interactions Increased sodium tablet frequency to 3 times daily, continue Lasix Consider tolvaptan or urea treatment 07/11/2020 Sodium up to 124.7 3 times daily oral Lasix, salt tablets May benefit from tolvaptan or urea Resolved (6) Leucocytosis Qualifiers: Leukocytosis type: unspecified Qualified Code(s): D72.829 - Elevated white blood cell count, unspecified Is this a current diagnosis for this admission?: Yes (7) Acute on chronic diastolic CHF (congestive heart failure) Is this a current diagnosis for this admission?: Yes Plan: TTE done this admission showed EF 60 to 65% with grade 2 diastolic dysfunction and moderate pulmonary hypertension with RVSP 50 to 55 mmHg After adequate volume control with diuretics, may benefit from repeat echocardiogram to rule out other forms of pulmonary hypertension could be under lying, could benefit from RHC in the future Resolved (8) Alcoholic cirrhosis of liver Qualifiers: Ascites presence: unspecified Qualified Code(s): K70.30 - Alcoholic cirrhosis of liver without ascites Is this a current diagnosis for this admission?: Yes (9) Thrombocytopenia Is this a current diagnosis for this admission?: Yes (10) Bilateral lower extremity edema Is this a current diagnosis for this admission?: Yes - Time Time Spent with patient: 15-24 minutes Medications reviewed and adjusted accordingly: Yes Anticipated Discharge Disposition: Assisted Facility Anticipated Discharge Timeframe: within 24 hours - Inpatient Certification Based on my medical assessment, after consideration of the patient's comorbidities, presenting symptoms, or acuity I expect that the services needed warrant INPATIENT care.: Yes I certify that my determination is in accordance with my understanding of Medicare's requirements for reasonable and necessary INPATIENT services [42 CFR 412.3e].: Yes Medical Necessity: Significant Comorbidiites Make Outpatient Treatment Too Risky, Need Close Monitoring Due to Risk of Patient Decompensation, Risk of Complication if Not Cared For in Hospital, Risk of Diagnosis Which Will Require Inpatient Eval/Care/Monitoring
[2020-07-12] MEDS: RIFAXIMIN 550 MG TABLET PO SCH (21:54)
[2020-07-12] MEDS: PHARMACY COMMUNICATION ORDER MC SCH (21:55)
[2020-07-13] MEDS: BENZONATATE 100 MG CAPSULE PO PRN ×3 (02:00→18:12)
[2020-07-13] MEDS: GABAPENTIN 400 MG CAPSULE PO SCH ×3 (05:16→21:43)
[2020-07-13] MEDS: PANTOPRAZOLE SODIUM 40 MG TABLET.DR PO SCH (05:17)
[2020-07-13 06:14] LABS: ANION GAP 8 (5-19); BLOOD UREA NITROGEN 42 mg/dL (7-20); CALCIUM 8.9 mg/dL (8.4-10.2); CARBON DIOXIDE 27 mmol/L (22-30); CHLORIDE 95 mmol/L (98-107); GLUCOSE 102 mg/dL (75-110); POTASSIUM 4.3 mmol/L (3.6-5.0)
[2020-07-13] MEDS: INSULIN REG, HUMAN 100 UNIT/ML 3 ML VIAL (PYX) SUBCUT SCH (08:00)
[2020-07-13 10:34] LABS: ABSOLUTE BASOPHILS # (AUTO) 0.1 10^3/uL (0.0-0.2); ABSOLUTE EOSINOPHILS # (AUTO) 0.1 10^3/uL (0.0-0.6); ABSOLUTE LYMPHOCYTES (AUTO) 0.9 10^3/uL (0.5-4.7); ABSOLUTE NEUT (AUTO) 8.2 10^3/uL (1.7-8.2); BASOPHILS % (AUTO) 0.5 % (0-2); HEMATOCRIT 25.2 % (37.9-51.0); HEMOGLOBIN 8.8 g/dL (13.5-17.0); MEAN CORPUSCULAR VOLUME 97 fl (80-97); MONOCYTES % (AUTO) 17.9 % (3-13); SEGMENTED NEUTROPHILS % (AUTO) 72.6 % (42-78); TOTAL CELLS COUNTED % (AUTO) 100 %; WHITE BLOOD COUNT 11.3 10^3/uL (4.0-10.5)
[2020-07-13] MEDS: FUROSEMIDE 20 MG TABLET PO SCH ×3 (10:37→18:11)
[2020-07-13] MEDS: CARVEDILOL 12.5 MG TABLET PO SCH ×2 (10:37→21:42)
[2020-07-13] MEDS: LIDOCAINE 5% (700 MG) TRANSDERMAL ADH..PATCH TP SCH (10:37)
[2020-07-13] MEDS: COLCHICINE 0.6 MG TABLET PO SCH (10:37)
[2020-07-13] MEDS: FERROUS SULFATE 325 MG TABLET PO SCH (10:37)
[2020-07-13] MEDS: SODIUM CHLORIDE 1 GM TABLET PO SCH ×3 (10:37→18:10)
[2020-07-13] MEDS: DOCUSATE SODIUM 100 MG CAPSULE PO SCH ×2 (10:37→18:10)
[2020-07-13 11:00] LABS: PLATELET COUNT 61 10^3/uL (150-450)
[2020-07-13] MEDS: IPRATROPIUM/ALBUTEROL 0.5-2.5 MG/3 ML AMPUL NEB PRN (11:59)
[2020-07-13] MEDS: ONDANSETRON HCL INJ/PF 4 MG/2 ML SDV IV PRN (15:57)
--- NOTE | 2020-07-13 16:25 | PDOC PROGRESS REPORT ---
Subjective Subjective:: Patient admitted with severe hyponatremia, given demeclocycline and salt tablets in ICU, sodium with very slow gradual improvement initially then sodium dropped off again after he was given a bolus of IV fluids for unknown reason overnight 07/09. Nephrology consulted and the case was discussed with him in detail. Patient given oral Lasix 3 times daily as well as sodium tablets 3 times daily. He has rather severe acute on chronic bilateral lower extremity edema. He has known chronic cirrhosis with elevated bilirubin and ammonia currently on rifaximin and lactulose has been stopped due to diarrhea. Hemoglobin and WBC are lower. Sodium down to 122.7. And creatinine is the same as yesterday at 1.68. Patient may benefit from urea or tolvaptan, defer to nephrology. 07/11/2020 Sodium now gradually rising on higher dose of salt tablets. Creatinine is also rising a bit now at 1.82. Sodium is currently 124.7. Platelets have dropped significantly and we are holding pharmacologic DVT prophylaxis at this time. Follow-up CBC in the morning. We will add thigh-high compression stockings as well to help with his lower extremity edema which is actually already looking somewhat better today. I discussed the case with nephrology today and they are continuing to adjust medications to help with increasing sodium. Our goal would be to get him up to a sodium of 130. 07/12/2020 Sodium is normal today finally. We will continue on his salt tablets and Lasix. Patient needs to go to SNF and he and his sister are in agreement with this and I will be looking for a facility for him in the near future. Creatinine has gone down and he is improved overall. He has no new complaints. Remove FMS as his stools although they are loose are very infrequent now. We will hold off on restarting his lactulose as this will undoubtedly causes diarrhea to return severely. 07/13/2020 When I visited the patient this morning, he was sleeping and seem to be having a great deal difficulty drawing his breaths through what is clearly obstructive sleep apnea. I discussed this with the nurse and have ordered a BiPAP for him to use nightly. He would most likely greatly benefit from sleeping with positive pressure assisting his breathing long-term. We get this for him at discharge I think will help him greatly. Sodium is normal. His platelets seem to have dropped due to clumping in the tube and I have ordered a repeat of this using a citrate tube instead of EDTA. Cover testing is pending for his placement at [facility]. He has no new complaints today. Reason For Visit: HYPERKALEMIA,HYPONATREMIA Physical Exam Vital Signs: Temp Pulse Resp BP Pulse Ox 98.8 F 77 18 123/55 L 97 07/13/20 11:54 07/13/20 12:00 07/13/20 12:00 07/13/20 11:54 07/13/20 12:00 Intake & Output 07/12/20 07/13/20 07/14/20 06:59 06:59 06:59 Intake Total 2962 1260 600 Output Total 5432 3550 1000 Balance -6563 -2290 -400 Weight 146.7 kg 133.5 kg Exam: General appearance: PRESENT: no acute distress, morbidly obese, well-developed, well-nourished, seen sleeping initially on encounter with obvious obstructive sleep apnea Head exam: PRESENT: atraumatic, normocephalic Eye exam: PRESENT: conjunctiva pink, other - Prosthetic right eye Mouth exam: PRESENT: moist Respiratory exam: PRESENT: clear to auscultation lul. ABSENT: rales, rhonchi, wheezes Cardiovascular exam: PRESENT: RRR. ABSENT: diastolic murmur, rubs, systolic murmur GI/Abdominal exam: PRESENT: normal bowel sounds, soft. ABSENT: distended, gu arding, mass, organolmegaly, rebound, tenderness Extremities exam: PRESENT: pedal edema, +2 edema mildly improved Neurological exam: PRESENT: alert, awake, oriented to person, oriented to place, oriented to time, oriented to situation Psychiatric exam: PRESENT: appropriate affect, normal mood Skin exam: PRESENT: dry, intact, warm Results Laboratory Results: 07/13/20 10:25 07/13/20 05:19 07/13/20 07/13/20 05:19 10:25 WBC 11.3 H RBC 2.60 L Hgb 8.8 L Hct 25.2 L MCV 97 MCH 34.0 H MCHC 35.0 RDW 16.0 H Plt Count 61 L Seg Neutrophils % 72.6 Sodium 130.0 L Potassium 4.3 Chloride 95 L Carbon Dioxide 27 Anion Gap 8 BUN 42 H Creatinine 1.26 H Est GFR ( Amer) > 60 Glucose 102 Calcium 8.9 07/06/20 07/06/20 07/06/20 00:23 00:23 03:37 Creatine Kinase 195 H 184 H CK-MB (CK-2) 4.09 Troponin I < 0.012 NT-Pro-B Natriuret Pep 07/07/20 06:05 Creatine Kinase CK-MB (CK-2) Troponin I NT-Pro-B Natriuret Pep 1540 H Impressions: Lumbar Spine X-Ray 07/06/20 00:05 IMPRESSION: No acute bony injury is identified. Chest X-Ray 07/09/20 00:00 IMPRESSION: Cardiomegaly and low inspiratory lung volumes without a superimposed acute cardiopulmonary process. Assessment and Plan - Diagnosis (1) Hyponatremia Is this a current diagnosis for this admission?: Yes Plan: Per previous physician: "This is a chronic issue for this patient. Sodium is up to 126 today. Continue to monitor sodium levels. Consider discontinuing demeclocycline and adding a fluid restriction." 07/10/2020 Nephrology consulted, discussed the case with them in detail Stopped demeclocycline as this is likely ineffective and puts patient at risk for side effects and drug interactions Increased sodium tablet frequency to 3 times daily, continue Lasix Consider tolvaptan or urea treatment 07/11/2020 Sodium up to 124.7 3 times daily oral Lasix, salt tablets May benefit from tolvaptan or urea Creatinine improving and sodium has been normalized (2) Hyperammonemia Is this a current diagnosis for this admission?: Yes (3) Chronic liver disease and cirrhosis Is this a current diagnosis for this admission?: Yes Plan: Needs follow-up with GI outpatient Stable (4) Anemia Qualifiers: Anemia type: iron deficiency Iron deficiency anemia type: unspecified iron deficiency Qualified Code(s): D50.9 - Iron deficiency anemia, unspecified Is this a current diagnosis for this admission?: Yes (5) Hyperkalemia Is this a current diagnosis for this admission?: Yes (6) Leucocytosis Qualifiers: Leukocytosis type: unspecified Qualified Code(s): D72.829 - Elevated white blood cell count, unspecified Is this a current diagnosis for this admission?: Yes (7) Acute on chronic diastolic CHF (congestive heart failure) Is this a current diagnosis for this admission?: Yes (8) Alcoholic cirrhosis of liver Qualifiers: Ascites presence: unspecified Qualified Code(s): K70.30 - Alcoholic cirrhosis of liver without ascites Is this a current diagnosis for this admission?: Yes (9) Thrombocytopenia Is this a current diagnosis for this admission?: Yes (10) Bilateral lower extremity edema Is this a current diagnosis for this admission?: Yes (11) Vomiting Qualifiers: Vomiting type: unspecified Vomiting Intractability: non-intractable Nausea presence: with nausea Qualified Code(s): R11.2 - Nausea with vomiting, unspecified Is this a current diagnosis for this admission?: Yes Plan: Antiemetics - Time Time Spent with patient: 25-34 minutes Anticipated Discharge Disposition: [facility] Anticipated Discharge Timeframe: within 48 hours - Inpatient Certification Based on my medical assessment, after consideration of the patient's comorbidities, presenting symptoms, or acuity I expect that the services needed warrant INPATIENT care.: Yes I certify that my determination is in accordance with my understanding of Medicare's requirements for reasonable and necessary INPATIENT services [42 CFR 412.3e].: Yes Medical Necessity: Significant Comorbidiites Make Outpatient Treatment Too Risky, Need Close Monitoring Due to Risk of Patient Decompensation, Risk of Complication if Not Cared For in Hospital, Risk of Diagnosis Which Will Require Inpatient Eval/Care/Monitoring
[2020-07-13] MEDS: RIFAXIMIN 550 MG TABLET PO SCH (21:43)
[2020-07-13] MEDS: PHARMACY COMMUNICATION ORDER MC SCH (22:00)
[2020-07-14] MEDS: GABAPENTIN 400 MG CAPSULE PO SCH ×3 (05:49→22:29)
[2020-07-14] MEDS: PANTOPRAZOLE SODIUM 40 MG TABLET.DR PO SCH (05:49)
[2020-07-14] MEDS: INSULIN REG, HUMAN 100 UNIT/ML 3 ML VIAL (PYX) SUBCUT SCH (08:08)
[2020-07-14] MEDS: IPRATROPIUM/ALBUTEROL 0.5-2.5 MG/3 ML AMPUL NEB PRN (09:46)
[2020-07-14] MEDS: FERROUS SULFATE 325 MG TABLET PO SCH (10:27)
[2020-07-14] MEDS: DOCUSATE SODIUM 100 MG CAPSULE PO SCH ×2 (10:27→18:26)
[2020-07-14] MEDS: CARVEDILOL 12.5 MG TABLET PO SCH ×2 (10:27→22:28)
[2020-07-14] MEDS: LIDOCAINE 5% (700 MG) TRANSDERMAL ADH..PATCH TP SCH (10:27)
[2020-07-14] MEDS: SODIUM CHLORIDE 1 GM TABLET PO SCH ×3 (10:27→18:26)
[2020-07-14] MEDS: FUROSEMIDE 20 MG TABLET PO SCH ×3 (10:27→18:26)
[2020-07-14] MEDS: BENZONATATE 100 MG CAPSULE PO PRN ×2 (10:27→18:27)
[2020-07-14] MEDS: FAMOTIDINE 20 MG TABLET PO SCH ×2 (10:27→22:29)
[2020-07-14] MEDS: COLCHICINE 0.6 MG TABLET PO SCH (10:27)
--- NOTE | 2020-07-14 17:25 | PDOC PROGRESS REPORT ---
Subjective Subjective:: Patient admitted with severe hyponatremia, given demeclocycline and salt tablets in ICU, sodium with very slow gradual improvement initially then sodium dropped off again after he was given a bolus of IV fluids for unknown reason overnight 07/09. Nephrology consulted and the case was discussed with him in detail. Patient given oral Lasix 3 times daily as well as sodium tablets 3 times daily. He has rather severe acute on chronic bilateral lower extremity edema. He has known chronic cirrhosis with elevated bilirubin and ammonia currently on rifaximin and lactulose has been stopped due to diarrhea. Hemoglobin and WBC are lower. Sodium down to 122.7. And creatinine is the same as yesterday at 1.68. Patient may benefit from urea or tolvaptan, defer to nephrology. 07/11/2020 Sodium now gradually rising on higher dose of salt tablets. Creatinine is also rising a bit now at 1.82. Sodium is currently 124.7. Platelets have dropped significantly and we are holding pharmacologic DVT prophylaxis at this time. Follow-up CBC in the morning. We will add thigh-high compression stockings as well to help with his lower extremity edema which is actually already looking somewhat better today. I discussed the case with nephrology today and they are continuing to adjust medications to help with increasing sodium. Our goal would be to get him up to a sodium of 130. 07/12/2020 Sodium is normal today finally. We will continue on his salt tablets and Lasix. Patient needs to go to SNF and he and his sister are in agreement with this and I will be looking for a facility for him in the near future. Creatinine has gone down and he is improved overall. He has no new complaints. Remove FMS as his stools although they are loose are very infrequent now. We will hold off on restarting his lactulose as this will undoubtedly causes diarrhea to return severely. 07/13/2020 When I visited the patient this morning, he was sleeping and seem to be having a great deal difficulty drawing his breaths through what is clearly obstructive sleep apnea. I discussed this with the nurse and have ordered a BiPAP for him to use nightly. He would most likely greatly benefit from sleeping with positive pressure assisting his breathing long-term. We get this for him at discharge I think will help him greatly. Sodium is normal. His platelets seem to have dropped due to clumping in the tube and I have ordered a repeat of this using a citrate tube instead of EDTA. Cover testing is pending for his placement at SNF. He has no new complaints today. 07/14/2020 Patient seems to be doing quite well today and is not having any more vomiting since the episode he had yesterday. Repeat checks of his platelets so showed he does have significant thrombocytopenia but not to the point he would require transfusion at this time. We will have to hold prophylactic anticoagulation due to the low number however. Patient is COVID negative and can go to SNF whenever he is accepted at 1 of his chosen facilities. We do not need to trend his ammonia as a rise or fall on this number does not necessarily correlate with a change clinically. No new complaints. Reason For Visit: HYPERKALEMIA,HYPONATREMIA Physical Exam Vital Signs: Temp Pulse Resp BP Pulse Ox 99.1 F 70 18 130/50 H 96 07/14/20 11:41 07/14/20 11:41 07/14/20 11:41 07/14/20 11:41 07/14/20 11:41 Intake & Output 07/13/20 07/14/20 07/15/20 06:59 06:59 06:59 Intake Total 1260 1110 920 Output Total 3550 5825 800 Balance -2290 -4715 120 Weight 133.5 kg 135.2 kg Exam: General appearance: PRESENT: no acute distress, morbidly obese, well-developed, well-nourished, states his vomiting is completely resolved Head exam: PRESENT: atraumatic, normocephalic Eye exam: PRESENT: conjunctiva pink, other - Prosthetic right eye Mouth exam: PRESENT: moist Respiratory exam: PRESENT: clear to auscultation lul. ABSENT: rales, rhonchi, wheezes Cardiovascular exam: PRESENT: RRR. ABSENT: diastolic murmur, rubs, systolic murmur GI/Abdominal exam: PRESENT: normal bowel sounds, soft. ABSENT: distended, guarding, mass, organolmegaly, rebound, tenderness Extremities exam: PRESENT: pedal edema, chronic +2 edema same Neurological exam: PRESENT: alert, awake, oriented to person, oriented to place, oriented to time, oriented to situation Psychiatric exam: PRESENT: appropriate affect, normal mood Skin exam: PRESENT: dry, intact, warm Results Laboratory Results: 07/13/20 10:25 07/13/20 05:19 07/14/20 09:30 Ammonia 71.1 H 07/06/20 07/06/20 07/06/20 00:23 00:23 03:37 Creatine Kinase 195 H 184 H CK-MB (CK-2) 4.09 Troponin I < 0.012 NT-Pro-B Natriuret Pep 07/07/20 06:05 Creatine Kinase CK-MB (CK-2) Troponin I NT-Pro-B Natriuret Pep 1540 H Impressions: Lumbar Spine X-Ray 07/06/20 00:05 IMPRESSION: No acute bony injury is identified. Chest X-Ray 07/09/20 00:00 IMPRESSION: Cardiomegaly and low inspiratory lung volumes without a superimposed acute cardiopulmonary process. Assessment and Plan - Diagnosis (1) Hyponatremia Is this a current diagnosis for this admission?: Yes Plan: Per previous physician: "This is a chronic issue for this patient. Sodium is up to 126 today. Continue to monitor sodium levels. Consider discontinuing demeclocycline and adding a fluid restriction." 07/10/2020 Nephrology consulted, discussed the case with them in detail Stopped demeclocycline as this is likely ineffective and puts patient at risk for side effects and drug interactions Increased sodium tablet frequency to 3 times daily, continue Lasix Consider tolvaptan or urea treatment 07/11/2020 Sodium up to 124.7 3 times daily oral Lasix, salt tablets May benefit from tolvaptan or urea Creatinine at baseline and sodium above 130 (2) Hyperammonemia Is this a current diagnosis for this admission?: Yes (3) Chronic liver disease and cirrhosis Is this a current diagnosis for this admission?: Yes Plan: Needs follow-up with GI outpatient Stable Continued on 3 times daily Lasix, holding Aldactone for hyponatremia (4) Anemia Qualifiers: Anemia type: iron deficiency Iron deficiency anemia type: unspecified iron deficiency Qualified Code(s): D50.9 - Iron deficiency anemia, unspecified Is this a current diagnosis for this admission?: Yes (5) Hyperkalemia Is this a current diagnosis for this admission?: Yes (6) Leucocytosis Qualifiers: Leukocytosis type: unspecified Qualified Code(s): D72.829 - Elevated white blood cell count, unspecified Is this a current diagnosis for this admission?: Yes (7) Acute on chronic diastolic CHF (congestive heart failure) Is this a current diagnosis for this admission?: Yes Plan: TTE done this admission showed EF 60 to 65% with grade 2 diastolic dysfunction and moderate pulmonary hypertension with RVSP 50 to 55 mmHg After adequate volume control with diuretics, may benefit from repeat echocardiogram to rule out other forms of pulmonary hypertension could be underlying, could benefit from RHC in the future Resolved (8) Alcoholic cirrhosis of liver Qualifiers: Ascites presence: unspecified Qualified Code(s): K70.30 - Alcoholic cirrhosis of liver without ascites Is this a current diagnosis for this admission?: Yes (9) Thrombocytopenia Is this a current diagnosis for this admission?: Yes (10) Bilateral lower extremity edema Is this a current diagnosis for this admission?: Yes Plan: Chronic Diuresis Compression stockings thigh-high (11) Vomiting Qualifiers: Vomiting type: unspecified Vomiting Intractability: non-intractable Naus ea presence: with nausea Qualified Code(s): R11.2 - Nausea with vomiting, unspecified Is this a current diagnosis for this admission?: Yes Plan: Antiemetics Resolved - Time Time Spent with patient: 15-24 minutes Medications reviewed and adjusted accordingly: Yes [facility]ticipated [facility]position[facility] Anticipated Discharge Timeframe: within 24 hours - Inpatient Certification Based on my medical assessment, after consideration of the patient's comorbidities, presenting symptoms, or acuity I expect that the services needed warrant INPATIENT care.: Yes I certify that my determination is in accordance with my understanding of Medicare's requirements for reasonable and necessary INPATIENT services [42 CFR 412.3e].: Yes Medical Necessity: Significant Comorbidiites Make Outpatient Treatment Too Risky, Need Close Monitoring Due to Risk of Patient Decompensation, Risk of Comp lication if Not Cared For in Hospital, Risk of Diagnosis Which Will Require Inpatient Eval/Care/Monitoring
[2020-07-14] MEDS: BENZOCAINE/MENTHOL SORE THROAT LOZENGE BUCCAL PRN ×2 (17:36→22:30)
[2020-07-14] MEDS: PHARMACY COMMUNICATION ORDER MC SCH (22:44)
[2020-07-15] MEDS: PANTOPRAZOLE SODIUM 40 MG TABLET.DR PO SCH (06:10)
[2020-07-15] MEDS: GABAPENTIN 400 MG CAPSULE PO SCH ×3 (06:10→21:31)
[2020-07-15] MEDS: INSULIN REG, HUMAN 100 UNIT/ML 3 ML VIAL (PYX) SUBCUT SCH (08:53)
[2020-07-15] MEDS: DOCUSATE SODIUM 100 MG CAPSULE PO SCH ×2 (09:25→17:40)
[2020-07-15] MEDS: FUROSEMIDE 20 MG TABLET PO SCH ×3 (09:25→17:40)
[2020-07-15] MEDS: FERROUS SULFATE 325 MG TABLET PO SCH (09:25)
[2020-07-15] MEDS: CARVEDILOL 12.5 MG TABLET PO SCH ×2 (09:26→21:31)
[2020-07-15] MEDS: COLCHICINE 0.6 MG TABLET PO SCH (09:27)
[2020-07-15] MEDS: LIDOCAINE 5% (700 MG) TRANSDERMAL ADH..PATCH TP SCH (09:27)
[2020-07-15] MEDS: FAMOTIDINE 20 MG TABLET PO SCH ×2 (09:27→21:31)
[2020-07-15] MEDS ORDERED: SODIUM CHLORIDE 1 GM TABLET PO SCH (10:00)
[2020-07-15] MEDS: BENZOCAINE/MENTHOL SORE THROAT LOZENGE BUCCAL PRN (11:30)
[2020-07-15 11:51] LABS: ANION GAP 10 (5-19); BLOOD UREA NITROGEN 37 mg/dL (7-20); CALCIUM 9.3 mg/dL (8.4-10.2); CARBON DIOXIDE 30 mmol/L (22-30); CHLORIDE 92 mmol/L (98-107); GLUCOSE 118 mg/dL (75-110); POTASSIUM 3.9 mmol/L (3.6-5.0)
[2020-07-15] MEDS ORDERED: LACTULOSE SYRUP 20 GM/30 ML UDCUP PO ONE (14:08)
--- NOTE | 2020-07-15 14:26 | PDOC PROGRESS REPORT ---
Subjective Progress Note for:: 07/15/20 Subjective:: Patient eager to go home. He states he just moved here from out of town but within [place]. He is yet to get established with a bioinformatics software engineer/finding fastener here. He denies any pain or shortness of breath. He states he has had a bowel movement today. He has history of cirrhosis which he confirms. States that he used to take lactulose once a day though he was prescribed 4 times a day. He states that taking lactulose once a day makes him have 4 bowel movements. Reason For Visit: HYPERKALEMIA,HYPONATREMIA Physical Exam Vital Signs: Temp Pulse Resp BP Pulse Ox 98.2 F 70 18 118/55 L 93 07/15/20 11:19 07/15/20 11:19 07/15/20 11:19 07/15/20 11:19 07/15/20 11:19 Intake & Output 07/14/20 07/15/20 07/16/20 06:59 06:59 06:59 Intake Total 1110 1338 Output Total 5846 4700 Balance -4715 -4402 Weight 135.2 kg 124.5 kg General appearance: PRESENT: no acute distress, cooperative Neck exam: ABSENT: JVD Respiratory exam: PRESENT: symmetrical, unlabored. ABSENT: tachypnea, wheezes Cardiovascular exam: PRESENT: RRR, +S1, +S2. ABSENT: tachycardia GI/Abdominal exam: PRESENT: distended, soft. ABSENT: rebound, rigid, tenderness Extremities exam: PRESENT: pedal edema, +2 edema Neurological exam: PRESENT: alert, awake, oriented to person, oriented to place, oriented to time, oriented to situation Results Laboratory Results: 07/13/20 10:25 07/15/20 11:23 07/15/20 11:23 Sodium 131.8 L Potassium 3.9 Chloride 92 L Carbon Dioxide 30 Anion Gap 10 BUN 37 H Creatinine 1.15 Est GFR ( Amer) > 60 Glucose 118 H Calcium 9.3 07/06/20 07/06/20 07/06/20 00:23 00:23 03:37 Creatine Kinase 195 H 184 H CK-MB (CK-2) 4.09 Troponin I < 0.012 NT-Pro-B Natriuret Pep 07/07/20 06:05 Creatine Kinase CK-MB (CK-2) Troponin I NT-Pro-B Natriuret Pep 1540 H Impressions: Lumbar Spine X-Ray 07/06/20 00:05 IMPRESSION: No acute bony injury is identified. Chest X-Ray 07/09/20 00:00 IMPRESSION: Cardiomegaly and low inspiratory lung volumes without a superimposed acute cardiopulmonary process. Assessment and Plan - Diagnosis (1) Hyponatremia Is this a current diagnosis for this admission?: Yes Plan: His sodium remains stable at 131 today. As his sodium is now improved, I will go ahead and discontinue sodium chloride tablets to avoid worsening of fluid overload state especially given his cirrhosis. Continue Lasix. Continue to hold Aldactone. Repeat BMP in the morning. (2) Hyperammonemia Is this a current diagnosis for this admission?: Yes Plan: Ammonia was elevated yesterday. However this does not clinically correlate as he is not having any encephalopathy at this time. He does state that he takes lactulose 20 g daily at home even though he was pre scribed for 4 times a day. He states that typically 1 dose daily is enough to achieve 4 bowel movements. I will resume lactulose at 20 g daily. Monitor for dehydration. (3) Chronic liver disease and cirrhosis Is this a current diagnosis for this admission?: Yes Plan: Hypervolemic with fluid overload state secondary to cirrhosis. Continue Lasix 40 g 3 times a day. Seems to be diuresing excellently. Will be cautious for dehydration. Aldactone on hold Lactulose resumed. Seems to be on rifaximin at home as well. Avoid hepatotoxic meds. We will need to be established with a bioinformatics software engineer or finding fastener upon discharge within the area. (4) Acute on chronic diastolic CHF (congestive heart failure) Is this a current diagnosis for this admission?: Yes Plan: TTE done this admission showed EF 60 to 65% with grade 2 diastolic dysfunction and moderate pulmonary hypertension with RVSP 50 to 55 mmHg Currently improved with diuresis. It is possible that his pulmonary hypertension may also be attributable to his cirrhosis [portopulmonary] and he will probably benefit from further evaluation in the future as outpatient. Continue p.o. diuresis. (5) Anemia Qualifiers: Anemia type: iron deficiency Iron deficiency anemia type: unspecified iron deficiency Qualified Code(s): D50.9 - Iron deficiency anemia, unspecified Is this a current diagnosis for this admission?: Yes Plan: Received Venofer. Continue ferrous sulfate. CBC stable. (6) Thrombocytopenia Is this a current diagnosis for this admission?: Yes Plan: Stable. Secondary to cirrhosis. (7) Debility Is this a current diagnosis for this admission?: Yes Plan: Awaiting placement at SNF - Time Time Spent with patient: 15-24 minutes Anticipated Discharge Disposition: [facility] Anticipated Discharge Timeframe: within 36 hours
[2020-07-15] MEDS: PHARMACY COMMUNICATION ORDER MC SCH (21:31)
[2020-07-16] MEDS: BENZONATATE 100 MG CAPSULE PO PRN ×2 (06:47→14:22)
[2020-07-16] MEDS: PANTOPRAZOLE SODIUM 40 MG TABLET.DR PO SCH (06:47)
[2020-07-16] MEDS: GABAPENTIN 400 MG CAPSULE PO SCH ×3 (06:47→22:07)
[2020-07-16 06:56] LABS: HEMATOCRIT 27.2 % (37.9-51.0); HEMOGLOBIN 9.7 g/dL (13.5-17.0); MEAN CORPUSCULAR HEMOGLOBIN 34.4 pg (27.0-33.4); MEAN CORPUSCULAR HGB CONC 35.6 g/dL (32.0-36.0); MEAN CORPUSCULAR VOLUME 97 fl (80-97); RED BLOOD COUNT 2.82 10^6/uL (4.35-5.55); RED CELL DISTRIBUTION WIDTH 15.7 % (11.5-14.0); WHITE BLOOD COUNT 6.4 10^3/uL (4.0-10.5)
[2020-07-16 07:12] LABS: ANION GAP 10 (5-19); BLOOD UREA NITROGEN 31 mg/dL (7-20); CALCIUM 9.2 mg/dL (8.4-10.2); CARBON DIOXIDE 31 mmol/L (22-30); CHLORIDE 91 mmol/L (98-107); GLUCOSE 96 mg/dL (75-110); POTASSIUM 3.7 mmol/L (3.6-5.0)
[2020-07-16] MEDS: INSULIN REG, HUMAN 100 UNIT/ML 3 ML VIAL (PYX) SUBCUT SCH (08:07)
[2020-07-16 08:38] LABS: PLATELET COUNT 90 10^3/uL (150-450)
[2020-07-16] MEDS: LACTULOSE SYRUP 20 GM/30 ML UDCUP PO SCH ×2 (09:58→10:27)
[2020-07-16] MEDS: FERROUS SULFATE 325 MG TABLET PO SCH (09:59)
[2020-07-16] MEDS: FAMOTIDINE 20 MG TABLET PO SCH ×2 (09:59→22:07)
[2020-07-16] MEDS: CARVEDILOL 12.5 MG TABLET PO SCH ×2 (09:59→22:07)
[2020-07-16] MEDS: COLCHICINE 0.6 MG TABLET PO SCH (09:59)
[2020-07-16] MEDS: DOCUSATE SODIUM 100 MG CAPSULE PO SCH (09:59)
[2020-07-16] MEDS: LIDOCAINE 5% (700 MG) TRANSDERMAL ADH..PATCH TP SCH (10:00)
[2020-07-16] MEDS ORDERED: FUROSEMIDE 20 MG TABLET PO SCH (10:00)
[2020-07-16] MEDS: BENZOCAINE/MENTHOL SORE THROAT LOZENGE BUCCAL PRN (14:22)
--- NOTE | 2020-07-16 16:18 | PDOC PROGRESS REPORT ---
Subjective Progress Note for:: 07/16/20 Subjective:: Patient denies any shortness of breath today. Denies fever or chills. Discussed plan for placement at SNF which he is okay with. Reason For Visit: HYPERKALEMIA,HYPONATREMIA Physical Exam Vital Signs: Temp Pulse Resp BP Pulse Ox 97.9 F 72 17 126/42 H 94 07/16/20 07:57 07/16/20 14:00 07/16/20 07:57 07/16/20 07:57 07/16/20 07:57 Intake & Output 07/15/20 07/16/20 07/17/20 06:59 06:59 06:59 Intake Total 1338 1430 Output Total 4700 4800 Balance -3362 -3370 Weight 124.5 kg 131.6 kg 131.6 kg General appearance: PRESENT: no acute distress, cooperative Neck exam: ABSENT: JVD Respiratory exam: PRESENT: clear to auscultation lul, unlabored Cardiovascular exam: PRESENT: +S1, +S2. ABSENT: tachycardia Neurological exam: PRESENT: alert, awake, oriented to person, oriented to place, oriented to time Psychiatric exam: ABSENT: agitated, anxious Results Laboratory Results: 07/16/20 06:30 07/16/20 06:30 07/16/20 07/16/20 06:30 06:30 WBC 6.4 RBC 2.82 L Hgb 9.7 L Hct 27.2 L MCV 97 MCH 34.4 H MCHC 35.6 RDW 15.7 H Plt Count 90 L Sodium 131.6 L Potassium 3.7 Chloride 91 L Carbon Dioxide 31 H Anion Gap 10 BUN 31 H Creatinine 1.20 Est GFR ( Amer) > 60 Glucose 96 Calcium 9.2 07/06/20 07/06/20 07/06/20 00:23 00:23 03:37 Creatine Kinase 195 H 184 H CK-MB (CK-2) 4.09 Troponin I < 0.012 NT-Pro-B Natriuret Pep 07/07/20 06:05 Creatine Kinase CK-MB (CK-2) Troponin I NT-Pro-B Natriuret Pep 1540 H Impressions: Lumbar Spine X-Ray 07/06/20 00:05 IMPRESSION: No acute bony injury is identified. Chest X-Ray 07/09/20 00:00 IMPRESSION: Cardiomegaly and low inspiratory lung volumes without a superimposed acute cardiopulmonary process. Assessment and Plan - Diagnosis (1) Hyponatremia Is this a current diagnosis for this admission?: Yes Plan: His sodium remains stable at 131 today after discontinue sodium chloride tabs yesterday. Continue Lasix. Continue to hold Aldactone which such heavy doses very likely contributed to his presentation with hyponatremia and hyperkalemia. Repeat BMP in the morning. (2) Hyperammonemia Is this a current diagnosis for this admission?: Yes Plan: Ammonia was elevated yesterday. However this does not clinically correlate as he is not having any encephalopathy at this time. He does state that he takes lactulose 20 g daily at home even though he was prescribed for 4 times a day. He states that typically 1 dose daily is enough to achieve 4 bowel movements. Continue lactulose at 20 g daily. Monitor for dehydration. (3) Chronic liver disease and cirrhosis Is this a current diagnosis for this admission?: Yes Plan: Hypervolemic with fluid overload state secondary to cirrhosis. We will reduce Lasix dose to 40 mg daily for today to avoid dehydration as he has been diuresing immensely over the past few days. Aldactone on hold Lactulose. Seems to be on rifaximin at home as well. Avoid hepatotoxic meds. We will need to be established with a radio station engineer or gastroenterologist upon discharge within the area. (4) Acute on chronic diastolic CHF (congestive heart failure) Is this a current diagnosis for this admission?: Yes Plan: TTE done this admission showed EF 60 to 65% with grade 2 diastolic dysfunction and moderate pulmonary hypertension with RVSP 50 to 55 mmHg Currently improved with diuresis. It is possible that his pulmonary hypertension may also be attributable to his cirrhosis [portopulmonary] and he will probably benefit from further evaluation in the future as outpatient. Continue p.o. diuresis. (5) Anemia Qualifiers: Anemia type: iron deficiency Iron deficiency anemia type: unspecified iron deficiency Qualified Code(s): D50.9 - Iron deficiency anemia, unspecified Is this a current diagnosis for this admission?: Yes Plan: Received Venofer. Continue ferrous sulfate. CBC stable. (6) Thrombocytopenia Is this a current diagnosis for this admission?: Yes Plan: Stable. Secondary to cirrhosis. (7) Debility Is this a current diagnosis for this admission?: Yes Plan: Awaiting placement at SNF - Time Time Spent with patient: Less than 15 minutes Anticipated [facility]position[facility] Anticipated Discharge Timeframe: within 24 hours
[2020-07-16] MEDS: PHARMACY COMMUNICATION ORDER MC SCH (22:08)
[2020-07-17] MEDS: GABAPENTIN 400 MG CAPSULE PO SCH ×3 (05:31→21:39)
[2020-07-17] MEDS: PANTOPRAZOLE SODIUM 40 MG TABLET.DR PO SCH (05:32)
[2020-07-17 06:43] LABS: ANION GAP 8 (5-19); BLOOD UREA NITROGEN 29 mg/dL (7-20); CALCIUM 9.1 mg/dL (8.4-10.2); CARBON DIOXIDE 31 mmol/L (22-30); CHLORIDE 91 mmol/L (98-107); GLUCOSE 112 mg/dL (75-110); POTASSIUM 3.9 mmol/L (3.6-5.0)
[2020-07-17] MEDS: INSULIN REG, HUMAN 100 UNIT/ML 3 ML VIAL (PYX) SUBCUT SCH (09:09)
[2020-07-17] MEDS: DOCUSATE SODIUM 100 MG CAPSULE PO SCH (09:53)
[2020-07-17] MEDS: FAMOTIDINE 20 MG TABLET PO SCH ×2 (09:53→21:39)
[2020-07-17] MEDS: BENZONATATE 100 MG CAPSULE PO PRN (09:55)
[2020-07-17] MEDS: CARVEDILOL 12.5 MG TABLET PO SCH ×2 (09:55→21:39)
[2020-07-17] MEDS: COLCHICINE 0.6 MG TABLET PO SCH (09:55)
[2020-07-17] MEDS: FERROUS SULFATE 325 MG TABLET PO SCH (09:55)
[2020-07-17] MEDS: BENZOCAINE/MENTHOL SORE THROAT LOZENGE BUCCAL PRN (09:56)
[2020-07-17] MEDS ORDERED: FUROSEMIDE 20 MG TABLET PO SCH (10:00)
[2020-07-17] MEDS ORDERED: FUROSEMIDE 40 MG TABLET PO SCH (10:00)
[2020-07-17] MEDS: LIDOCAINE 5% (700 MG) TRANSDERMAL ADH..PATCH TP SCH (10:03)
[2020-07-17] MEDS: LACTULOSE SYRUP 20 GM/30 ML UDCUP PO SCH (10:05)
[2020-07-17] MEDS ORDERED: NORMAL SALINE 1000 ML 750 ML IV ONE (12:28)
--- NOTE | 2020-07-17 12:40 | PDOC PROGRESS REPORT ---
Subjective Progress Note for:: 07/17/20 Subjective:: Patient has no complaints today. Feels well. He he did diurese quite a bit yesterday but had a lot of leakage around his condom catheter. As a result output could not adequately captured. Reason For Visit: HYPERKALEMIA,HYPONATREMIA Physical Exam Vital Signs: Temp Pulse Resp BP Pulse Ox 99.6 F 80 16 118/60 97 07/17/20 07:40 07/17/20 07:40 07/17/20 07:40 07/17/20 07:40 07/17/20 07:40 Intake & Output 07/16/20 07/17/20 07/18/20 06:59 06:59 06:59 Intake Total 1430 644 Output Total 4800 700 Balance -3370 -56 Weight 131.6 kg 127.6 kg General appearance: PRESENT: no acute distress, cooperative Neck exam: ABSENT: JVD Respiratory exam: PRESENT: clear to auscultation lul, unlabored. ABSENT: tachypnea, wheezes Cardiovascular exam: PRESENT: +S1, +S2. ABSENT: tachycardia GI/Abdominal exam: PRESENT: soft. ABSENT: rebound, rigid, tenderness Extremities exam: ABSENT: +2 edema Neurological exam: PRESENT: alert, awake, oriented to person, oriented to place, oriented to time, oriented to situation Psychiatric exam: ABSENT: agitated, anxious Results Laboratory Results: 07/16/20 06:30 07/17/20 06:09 07/17/20 06:09 Sodium 129.9 L Potassium 3.9 Chloride 91 L Carbon Dioxide 31 H Anion Gap 8 BUN 29 H Creatinine 1.49 H Est GFR ( Amer) 58 L Glucose 112 H Calcium 9.1 07/06/20 07/06/20 07/06/20 00:23 00:23 03:37 Creatine Kinase 195 H 184 H CK-MB (CK-2) 4.09 Troponin I < 0.012 NT-Pro-B Natriuret Pep 07/07/20 06:05 Creatine Kinase CK-MB (CK-2) Troponin I NT-Pro-B Natriuret Pep 1540 H Impressions: Lumbar Spine X-Ray 07/06/20 00:05 IMPRESSION: No acute bony injury is identified. Chest X-Ray 07/09/20 00:00 IMPRESSION: Cardiomegaly and low inspiratory lung volumes without a superimposed acute cardiopulmonary process. Assessment and Plan - Diagnosis (1) Hyponatremia Is this a current diagnosis for this admission?: Yes Plan: Sodium is stable. Hold Lasix for today given bump in creatinine. Continue to hold Aldactone which such heavy doses very likely contributed to his presentation with hyponatremia and hyperkalemia. Repeat BMP in the morning. (2) Hyperammonemia Is this a current diagnosis for this admission?: Yes Plan: Ammonia was elevated yesterday. However this does not clinically correlate as he is not having any encephalopathy at this time. He does state that he takes lactulose 20 g daily at home even though he was prescribed for 4 times a day. He states that typically 1 dose daily is enough to achieve 4 bowel movements. Continue lactulose at 20 g daily. Monitor for dehydration. (3) Acute kidney injury Is this a current diagnosis for this admission?: Yes Plan: Renal function showed significant improvement throughout hospitalization but seems to have been having mild worsening today. Creatinine up to 1.4 today. Has been diuresing a whole lot. We will hold Lasix and give 700 cc of IV fluid today. Avoid dehydration. Monitor urine output. Repeat BMP in the morning. (4) Chronic liver disease and cirrhosis Is this a current diagnosis for this admission?: Yes Plan: Hypervolemic with fluid overload state secondary to cirrhosis. Lasix Aldactone discontinued Lactulose. Seems to be on rifaximin at home as well. Avoid hepatotoxic meds. We will need to be established with a hollock maker or train brake operator upon discharge within the area. (5) Acute on chronic diastolic CHF (congestive heart failure) Is this a current diagnosis for this admission?: Yes Plan: TTE done this admission showed EF 60 to 65% with grade 2 diastolic dysfunction and moderate pulmonary hypertension with RVSP 50 to 55 mmHg Currently improved with diuresis. It is possible that his pulmonary hypertension may also be attributable to his cirrhosis [portopulmonary] and he will probably benefit from further evaluation in the future as outpatient. (6) Anemia Qualifiers: Anemia type: iron deficiency Iron deficiency anemia type: unspecified iron deficiency Qualified Code(s): D50.9 - Iron deficiency anemia, unspecified Is this a current diagnosis for this admission?: Yes Plan: Received Venofer. Continue ferrous sulfate. CBC stable. (7) Thrombocytopenia Is this a current diagnosis for this admission?: Yes Plan: Stable. Secondary to cirrhosis. (8) Debility Is this a current diagnosis for this admission?: Yes Plan: Awaiting placement at SNF. COVID-19 test result is negative x2. - Time Anticipated Discharge Disposition: Long Term Facility Anticipated Discharge Timeframe: within 24 hours
[2020-07-17] MEDS: CYCLOBENZAPRINE HCL 10 MG TABLET PO PRN ×2 (13:28→21:39)
[2020-07-17] MEDS ORDERED: TRAMADOL HCL 50 MG TABLET PO ONE (16:00)
[2020-07-17] MEDS: PHARMACY COMMUNICATION ORDER MC SCH (22:23)
[2020-07-18] MEDS: BENZOCAINE/MENTHOL SORE THROAT LOZENGE BUCCAL PRN ×2 (01:57→10:20)
[2020-07-18] MEDS: GABAPENTIN 400 MG CAPSULE PO SCH ×2 (05:34→14:29)
[2020-07-18] MEDS: PANTOPRAZOLE SODIUM 40 MG TABLET.DR PO SCH (05:34)
[2020-07-18 07:07] LABS: ANION GAP 7 (5-19); BLOOD UREA NITROGEN 25 mg/dL (7-20); CALCIUM 8.7 mg/dL (8.4-10.2); CARBON DIOXIDE 28 mmol/L (22-30); CHLORIDE 95 mmol/L (98-107); GLUCOSE 111 mg/dL (75-110); POTASSIUM 3.8 mmol/L (3.6-5.0)
[2020-07-18 09:48] VITALS: BP 125/55
[2020-07-18] MEDS: INSULIN REG, HUMAN 100 UNIT/ML 3 ML VIAL (PYX) SUBCUT SCH (09:56)
[2020-07-18] MEDS: DOCUSATE SODIUM 100 MG CAPSULE PO SCH (10:06)
[2020-07-18] MEDS: COLCHICINE 0.6 MG TABLET PO SCH (10:06)
[2020-07-18] MEDS: CARVEDILOL 12.5 MG TABLET PO SCH (10:06)
[2020-07-18] MEDS: FAMOTIDINE 20 MG TABLET PO SCH (10:06)
[2020-07-18] MEDS: FERROUS SULFATE 325 MG TABLET PO SCH (10:06)
[2020-07-18] MEDS: LACTULOSE SYRUP 20 GM/30 ML UDCUP PO SCH (10:06)
[2020-07-18] MEDS: LIDOCAINE 5% (700 MG) TRANSDERMAL ADH..PATCH TP SCH (10:07)
--- NOTE | 2020-07-18 14:52 | PDOC DISCHARGE SUMMARY ---
Impression - Admit/DC Date/PCP Admission Date/Primary Care Provider: 07/06/20 14:50 Discharge Date: 07/18/20 - Discharge Diagnosis (1) Hyponatremia Is this a current diagnosis for this admission?: Yes (2) Hyperkalemia Is this a current diagnosis for this admission?: Yes (3) Hyperammonemia Is this a current diagnosis for this admission?: Yes (4) Acute kidney injury Is this a current diagnosis for this admission?: Yes (5) Chronic liver disease and cirrhosis Is this a current diagnosis for this admission?: Yes (6) Acute on chronic diastolic CHF (congestive heart failure) Is this a current diagnosis for this admission?: Yes (7) Anemia Is this a current diagnosis for this admission?: Yes (8) Thrombocytopenia Is this a current diagnosis for this admission?: Yes (9) Debility Is this a current diagnosis for this admission?: Yes - Additional Information Resuscitation Status: Full Code Referrals: BENJAMIN SALEEM MD [ACTIVE STAFF] - SAMMIE TEJADA MD [ACTIVE STAFF] - Home Medications: Carvedilol [Coreg 12.5 mg Tablet] 12.5 mg PO Q12 07/06/20 Gabapentin [Neurontin] 800 mg PO TID 07/06/20 Multivitamin [Tab-A-Renny] 1 each PO DAILY 07/06/20 Omeprazole 40 mg PO DAILY 07/06/20 Ondansetron [Zofran Odt 4 mg Tablet] 4 mg PO BIDP PRN 07/06/20 Rifaximin [Xifaxan 550 mg Tablet] 550 mg PO QHS 07/06/20 Benzonatate [Tessalon Perles 100 mg Capsule] 100 mg PO Q8HP PRN capsule 07/18/20 Colchicine [Colcrys 0.6 mg Tablet] 1 tab PO DAILY #0 07/18/20 Furosemide [Lasix 20 mg Tablet] 40 mg PO DAILY #0 07/18/20 Lactulose [Cephulac Syrup 20 gm/30 ml Udcup] 20 gm PO DAILY udc 07/18/20 Lidocaine [Lidoderm 5% (700 mg) Transdermal Patch] 1 patch TP DAILY adh..patch 07/18/20 History of Present Illiness History of Present Illness: According to admitting provider: The patient presents with generalized weakness and obtundation. He fell in his home yesterday as well. He lives with his sister. The patient has a history significant for CHF and Cirrhosis. When he had routinelabs doen they showed severe hyponatremaiand hyperkalemia. The patient was found to have an intial Na+ of 114 and potassium of 7.6. His creatinine is 2.24. (for GFR of 30). The patient has additional history of Atrial fib but denies being on antiembolic treatment. At this time the patient is conversant with me , speaks clearly and has decent comprehension. His serum osmolality is 252. His urien osmolality is 297 and urine Na 34. The patient has fairly massive peripheral edema. He has been on large dose of Spironolactone and lasix at home. His ammonia levl is about 80. he appears to be hemodynamically stable Hospital Course Hospital Course: Patient was admitted to the hospital on 07/06/2020. He had presented following a fall was noted to have some confusion. Lumbar x-ray and chest x-ray were unremarkable. Blood work revealed leukocytosis, thrombocytopenia, severe hyponatremia of 114, hyperkalemia of 7.4, acute renal failure with creatinine of 2.24. Patient is notably has history of cirrhosis thought to be secondary to alcoholism. He has been following with a special events fundraiser out of town but has recently moved. His electrolyte abnormalities were thought to be secondary to heavy doses of Aldactone for which she was taking 100 mg twice a day. His diuretics were initially stopped and he was admitted to the ICU and received treatment for his electrolyte abnormalities. He improved and was later downgraded to the medical floor. On the medical floor he was diuresed only with Lasix. He was seen by n ephrologist who recommended diuresis with 40 mg of Lasix 3 times a day. He was on this for several days then diuresed very effectively maintaining net negative balance for several days. His kidney function also improved significantly with diuresis and last creatinine measured was 1.3 today. Of note his Aldactone has been discontinued due to his presentation with severe hyponatremia and hyperkale maria victoria. If the Aldactone is to be resumed in the future date, should be resumed only at much smaller doses. His Lasix did have to be held yesterday due to mild creatinine bump. However can be resumed at this time. Not currently on only daily dosing. Can uptitrate if patient starts to get increased swelling. His last sodium measured was 130 today and it has been stable at this for the past 6 days now. His thrombocytopenia is stable and is secondary to his cirrhosis. As he has moved to [facility] recently, he will need to follow-up with hepatology/gastroenterology regarding his cirrhosis. Please ensure to repeat a basic metabolic panel to evaluate his electrolytes in 2 weeks. Physical Exam Vital Signs: Temp Pulse Resp BP Pulse Ox 97.9 F 73 18 125/55 L 94 07/18/20 08:32 07/18/20 08:32 07/18/20 08:32 07/18/20 08:32 07/18/20 08:32 Intake & Output 07/17/20 07/18/20 07/19/20 06:59 06:59 06:59 Intake Total 644 2210 Output Total 700 950 Balance -56 1260 Weight 127.6 kg 130.4 kg General appearance: PRESENT: no acute distress, cooperative Neck exam: ABSENT: JVD Respiratory exam: PRESENT: unlabored. ABSENT: clear to auscultation lul, tachypnea, wheezes Cardiovascular exam: PRESENT: RRR, +S1, +S2. ABSENT: tachycardia GI/Abdominal exam: PRESENT: soft. ABSENT: tenderness Neurological exam: PRESENT: alert, awake, oriented to person, oriented to place, oriented to time Psychiatric exam: ABSENT: agitated, anxious Focused psych exam: ABSENT: pressured speech Skin exam: ABSENT: skin tears Results Laboratory Results: WBC 6.4 10^3/uL (4.0-10.5) 07/16/20 06:30 RBC 2.82 10^6/uL (4.35-5.55) L 07/16/20 06:30 Hgb 9.7 g/dL (13.5-17.0) L 07/16/20 06:30 Hct 27.2 % (37.9-51.0) L 07/16/20 06:30 MCV 97 fl (80-97) 07/16/20 06:30 MCH 34.4 pg (27.0-33.4) H 07/16/20 06:30 MCHC 35.6 g/dL (32.0-36.0) 07/16/20 06:30 RDW 15.7 % (11.5-14.0) H 07/16/20 06:30 Plt Count 90 10^3/uL (150-450) L 07/16/20 06:30 Lymph % (Auto) 8.0 % (13-45) L 07/13/20 10:25 [place] % (Auto) 17.9 % (3-13) H 07/13/20 10:25 Eos % (Auto) 1.0 % (0-6) 07/13/20 10:25 Baso % (Auto) 0.5 % (0-2) 07/13/20 10:25 Reticulocyte # 0.063 10^6/uL (0.028-0.122) 07/10/20 10:35 Absolute Neuts (auto) 8.2 10^3/uL (1.7-8.2) 07/13/20 10:25 Absolute Lymphs (auto) 0.9 10^3/uL (0.5-4.7) 07/13/20 10:25 Absolute Monos (auto) 2.0 10^3/uL (0.1-1.4) H 07/13/20 10:25 Absolute Eos (auto) 0.1 10^3/uL (0.0-0.6) 07/13/20 10:25 Absolute Basos (auto) 0.1 10^3/uL (0.0-0.2) 07/13/20 10:25 Total Counted 100 07/12/20 11:42 Seg Neutrophils % 72.6 % (42-78) 07/13/20 10:25 Seg Neuts % (Manual) 78 % (42-78) 07/12/20 11:42 Band Neutrophils % 1 % (3-5) L 07/12/20 11:42 Lymphocytes % (Manual) 5 % (13-45) L 07/12/20 11:42 Atypical Lymphs % 7 % (0) 07/12/20 11:42 Monocytes % (Manual) 9 % (3-13) 07/12/20 11:42 Eosinophils % (Manual) 0 % (0-6) 07/12/20 11:42 Basophils % (Manual) 0 % (0-2) 07/12/20 11:42 Metamyelocytes % 3 % (0-1) H 07/10/20 05:59 Promyelocytes % 1 % (0) H 07/10/20 05:59 Abs Neuts (Manual) 9.6 10^3/uL (1.7-8.2) H 07/12/20 11:42 Abs Lymphs (Manual) 1.5 10^3/uL (0.5-4.7) 07/12/20 11:42 Abs Monocytes (Manual) 1.1 10^3/uL (0.1-1.4) 07/12/20 11:42 Absolute Eos (Manual) 0.0 10^3/uL (0.0-0.6) 07/12/20 11:42 Abs Basophils (Manual) 0.0 10^3/uL (0.0-0.2) 07/12/20 11:42 Toxic Granulation 1+ 07/12/20 11:42 Platelet Estimate Cancelled 07/12/20 10:17 Platelet Comment 07/12/20 11:42 Polychromasia 1+ 07/12/20 11:42 Poikilocytosis SLIGHT 07/12/20 11:42 Basophilic Stippling PRESENT 07/12/20 11:42 Anisocytosis 1+ 07/12/20 11:42 Macrocytosis SLIGHT 07/10/20 05:59 Tear Drop Cells SLIGHT 07/12/20 11:42 Stomatocytes SLIGHT 07/10/20 05:59 Schistocytes SLIGHT 07/06/20 00:23 Retic Count (auto) 2.71 % (0.66-2.85) 07/10/20 10:35 Carbonic Acid 1.14 mmol/L (1.05-1.35) 07/06/20 19:09 HCO3/H2CO3 Ratio 17:1 07/06/20 19:09 ABG pH 7.34 (7.35-7.45) L 07/06/20 19:09 ABG pCO2 37.8 mmHg (35-45) 07/06/20 19:09 ABG pO2 97.5 mmHg (80-100) 07/06/20 19:09 ABG HCO3 20.1 mmol/L (20-24) 07/06/20 19:09 ABG Total CO2 21.3 mmol/L (23-27) L 07/06/20 19:09 ABG O2 Saturation 97.1 % (94-98) 07/06/20 19:09 ABG Base Excess -5.1 mmol/L 07/06/20 19:09 FiO2 3 L 07/06/20 19:09 Sodium 130.3 mmol/L (137-145) L 07/18/20 06:29 Potassium 3.8 mmol/L (3.6-5.0) 07/18/20 06:29 Chloride 95 mmol/L (98-107) L 07/18/20 06:29 Carbon Dioxide 28 mmol/L (22-30) 07/18/20 06:29 Anion Gap 7 (5-19) 07/18/20 06:29 BUN 25 mg/dL (7-20) H 07/18/20 06:29 Creatinine 1.32 mg/dL (0.52-1.25) H 07/18/20 06:29 Est GFR ( Amer) > 60 (>60) 07/18/20 06:29 Est GFR (MDRD) Non-Af 55 (>60) L 07/18/20 06:29 Glucose 111 mg/dL (75-110) H 07/18/20 06:29 POC Glucose 104 mg/dL (70-110) 07/18/20 08:34 Serum Osmolality 252 mOsm/kg (275-301) L 07/06/20 03:37 Lactic Acid 1.5 mmol/L (0.7-2.1) 07/06/20 22:02 Calcium 8.7 mg/dL (8.4-10.2) 07/18/20 06:29 Phosphorus 5.4 mg/dL (2.5-4.5) H 07/07/20 06:05 Magnesium 1.8 mg/dL (1.6-2.3) 07/10/20 05:59 Iron < 10.1 ug/dL (49-181) L 07/10/20 10:35 TIBC 254 ug/dL (250-450) 07/10/20 10:35 Iron Saturation UNABLE TO CALCULATE % (20% - 50%) 07/10/20 10:35 Ferritin 128.00 ng/mL (17.9-464.0) 07/10/20 10:35 Total Bilirubin 1.8 mg/dL (0.2-1.3) H 07/10/20 05:59 Direct Bilirubin 1.2 mg/dL (0.0-0.4) H 07/10/20 05:59 Neonat Total Bilirubin Not Reportable 07/10/20 05:59 Neonat Direct Bilirubin Not Reportable 07/10/20 05:59 Neonat Indirect Bili Not Reportable 07/10/20 05:59 AST 80 U/L (17-59) H 07/10/20 05:59 ALT 19 U/L (<50) 07/10/20 05:59 Alkaline Phosphatase 117 U/L (38-126) 07/10/20 05:59 Ammonia 71.1 umol/L (9-33) H 07/14/20 09:30 Creatine Kinase 184 U/L (55-170) H 07/06/20 03:37 CK-MB (CK-2) 4.09 ng/mL (<4.55) 07/06/20 00:23 Troponin I < 0.012 ng/mL 07/06/20 00:23 NT-Pro-B Natriuret Pep 1540 pg/mL (<125) H 07/07/20 06:05 Total Protein 5.6 g/dL (6.3-8.2) L 07/10/20 05:59 Albumin 2.7 g/dL (3.5-5.0) L 07/10/20 05:59 Triglycerides 105 mg/dL (<150) 07/07/20 06:05 Cholesterol 124.27 mg/dL (0-200) 07/07/20 06:05 LDL Cholesterol Direct 62 mg/dL (<100) 07/07/20 06:05 VLDL Cholesterol 21.0 mg/dL (10-31) 07/07/20 06:05 HDL Cholesterol 42 mg/dL (>40) 07/07/20 06:05 Vitamin B12 > 1000.0 pg/mL (239-931) H 07/10/20 10:35 Folate 18.10 ng/mL (>2.76) 07/10/20 10:35 TSH 9.67 uIU/mL (0.47-4.68) H 07/07/20 06:05 Free T4 1.47 ng/dL (0.78-2.19) 07/07/20 06:05 Urine Color YELLOW 07/06/20 00:03 Urine Appearance CLEAR 07/06/20 00:03 Urine pH 6.0 (5.0-9.0) 07/06/20 00:03 Ur Specific [place] 1.009 07/06/20 00:03 Urine Protein NEGATIVE mg/dL (NEGATIVE) 07/06/20 00:03 Urine Glucose (UA) NEGATIVE mg/dL (NEGATIVE) 07/06/20 00:03 Urine Ketones NEGATIVE mg/dL (NEGATIVE) 07/06/20 00:03 Urine Blood NEGATIVE (NEGATIVE) 07/06/20 00:03 Urine Nitrite NEGATIVE (NEGATIVE) 07/06/20 00:03 Urine Bilirubin NEGATIVE (NEGATIVE) 07/06/20 00:03 Urine Urobilinogen NEGATIVE mg/dL (<2.0) 07/06/20 00:03 Ur Leukocyte Esterase NEGATIVE (NEGATIVE) 07/06/20 00:03 Urine WBC (Auto) 0 /HPF 07/06/20 00:03 U Hyaline Cast (Auto) 11 /LPF 07/06/20 00:03 Squamous Epi Cells Auto 1 /HPF 07/06/20 00:03 Urine Mucus (Auto) RARE /LPF 07/06/20 00:03 Urine Osmolality 297 mOsm/kg (300-900) L 07/06/20 08:17 Urine Sodium 34 mmol/L (30-90) 07/06/20 08:17 Urine Ascorbic Acid NEGATIVE (NEGATIVE) 07/06/20 00:03 COVID-19 Source NASOPHARYNGEAL 07/15/20 13:00 COVID-19 (DANNY) NOT DETECTED 07/15/20 13:00 Slides for Path Review Cancelled 07/12/20 10:17 07/06/20 07/07/20 00:23 06:05 CK-MB (CK-2) 4.09 Troponin I < 0.012 NT-Pro-B Natriuret Pep 1540 H Impressions: Lumbar Spine X-Ray 07/06/20 00:05 IMPRESSION: No acute bony injury is identified. Chest X-Ray 07/06/20 08:14 IMPRESSION: NO ACUTE RADIOGRAPHIC FINDING IN THE CHEST. Chest X-Ray 07/06/20 14:47 IMPRESSION: Hypoventilated exam without evidence of acute pulmonary process. Chest X-Ray 07/09/20 00:00 IMPRESSION: Cardiomegaly and low inspiratory lung volumes without a superimposed acute cardiopulmonary process. Plan Goals: Akiko Ball. Time Spent: Greater than 30 Minutes Stroke Is this a Stroke Patient?: No Acute Heart Failure Is this a Heart Failure Patient?: Yes Documentation of LVEF assessment?: Yes LVEF: LVEF Greater Than 40% Anticoagulant Therapy: N/A
== END 2020-07-18 16:35 | DRG 640 ==
LOC: ER 23:23 → EH 07-06 14:50 → ICU 07-06 20:23 → 3S 07-08 21:00
PROVIDERS: ADMIT Internal Medicine; ATTEND Internal Medicine
PROC: 5A09457 Assistance with Respiratory Ventilation, 24-96 Consecutive Hours, Continuous Positive Airway Pressure (ICD-10-PCS; principal; 2020-07-13)
DX: E87.1 Hypo-osmolality and hyponatremia (principal); I50.33 Acute on chronic diastolic (congestive) heart failure; N17.9 Acute kidney failure, unspecified; Z68.42 Body mass index [BMI] 45.0-49.9, adult; E87.5 Hyperkalemia; I11.0 Hypertensive heart disease with heart failure; D69.6 Thrombocytopenia, unspecified; R00.1 Bradycardia, unspecified; W19.XXXA Unspecified fall, initial encounter; D50.9 Iron deficiency anemia, unspecified; K70.30 Alcoholic cirrhosis of liver without ascites; N28.9 Disorder of kidney and ureter, unspecified; M10.9 Gout, unspecified; E66.01 Morbid (severe) obesity due to excess calories; E83.42 Hypomagnesemia; G47.33 Obstructive sleep apnea (adult) (pediatric); Z11.59 Encounter for screening for other viral diseases; Z79.899 Other long term (current) drug therapy; Z82.49 Family history of ischemic heart disease and other diseases of the circulatory system
CPT/HCPCS: 36415; 71045; 72100; 80048; 80053; 80061; 80076; 81001; 82140; 82550; 82553; 82607; 82728; 82746; 82803; 82962; 83540; 83550; 83605; 83735; 83880; 83930; 83935; 84100; 84300; 84439; 84443; 84484; 85025; 85027; 85045; 87070; 87635; 93005; 93010; 93306; 94640; 94660; 96361; 96374; 96375; 96376; 99221; 99285; 99291; J0610; A9270-GY; C9803; J1170; J1756; J1815; J1940; J2405; J3010; J3475; J3490; J7030; J7040; J7042; J7050; J7613; P9047

== ENCOUNTER 2020-11-13 16:25 | Inpatient (IN) | payer MEDICARE ==
[2020-11-13 17:24] LABS: ALBUMIN 3.1 g/dL (3.5-5.0); ALKALINE PHOSPHATASE 187 U/L (38-126); ANION GAP 6 (5-19); ASPARTATE AMINO TRANSFERASE 54 U/L (17-59); BILIRUBIN,DIRECT 0.7 mg/dL (0.0-0.4); BILIRUBIN,TOTAL 1.4 mg/dL (0.2-1.3); BLOOD UREA NITROGEN 61 mg/dL (7-20); CALCIUM 8.9 mg/dL (8.4-10.2); CARBON DIOXIDE 24 mmol/L (22-30); CHLORIDE 97 mmol/L (98-107); CREATINE KINASE 116 U/L (55-170); GLUCOSE 136 mg/dL (75-110); POTASSIUM 5.7 mmol/L (3.6-5.0); TOTAL PROTEIN 6.5 g/dL (6.3-8.2)
[2020-11-13 17:36] LABS: CREATINE KINASE MB 2.38 ng/mL (<4.55)
[2020-11-13 17:37] LABS: TROPONIN I < 0.012 ng/mL
--- NOTE | 2020-11-13 17:47 | RADIOLOGY REPORT (SQ) ---
EXAM DESCRIPTION: CHEST SINGLE VIEW IMAGES COMPLETED DATE/TIME: 11/13/2020 4:17 pm REASON FOR STUDY: sob COMPARISON: 07/09/2020 EXAM PARAMETERS: NUMBER OF VIEWS: One view. TECHNIQUE: Single frontal radiographic view of the chest acquired. RADIATION DOSE: NA LIMITATIONS: None. FINDINGS: LUNGS AND PLEURA: No opacities, masses or pneumothorax. No pleural effusion. MEDIASTINUM AND HILAR STRUCTURES: No masses. Contour normal. HEART AND VASCULAR STRUCTURES: There is moderate cardiomegaly. Mild indistinctness of the pulmonary vasculature. BONES: No acute findings. HARDWARE: None in the chest. OTHER: No other significant finding. IMPRESSION: Moderate cardiomegaly with mild pulmonary edema. No focal consolidation. TECHNICAL DOCUMENTATION: JOB ID: [id number] 2010 [employer]- All Rights Reserved Reading location - IP/workstation name: [email or web address]
[2020-11-13 18:46] LABS: ABSOLUTE BASOPHILS # (AUTO) 0.1 10^3/uL (0.0-0.2); ABSOLUTE EOSINOPHILS # (AUTO) 0.1 10^3/uL (0.0-0.6); ABSOLUTE LYMPHOCYTES (AUTO) 0.9 10^3/uL (0.5-4.7); ABSOLUTE NEUT (AUTO) 5.4 10^3/uL (1.7-8.2); BASOPHILS % (AUTO) 1.4 % (0-2); LYMPHOCYTES % (AUTO) 11.6 % (13-45); MEAN CORPUSCULAR HEMOGLOBIN 33.8 pg (27.0-33.4); MEAN CORPUSCULAR HGB CONC 34.1 g/dL (32.0-36.0); MEAN CORPUSCULAR VOLUME 99 fl (80-97); MONOCYTES % (AUTO) 13.9 % (3-13); RED BLOOD COUNT 2.02 10^6/uL (4.35-5.55); RED CELL DISTRIBUTION WIDTH 17.3 % (11.5-14.0); SEGMENTED NEUTROPHILS % (AUTO) 71.1 % (42-78); TOTAL CELLS COUNTED % (AUTO) 100 %; WHITE BLOOD COUNT 7.5 10^3/uL (4.0-10.5)
[2020-11-13 19:05] LABS: APPEARANCE,URINE CLEAR; BILIRUBIN,URINE NEGATIVE (NEGATIVE); COLOR,URINE YELLOW; GLUCOSE, URINE NEGATIVE (NEGATIVE); KETONES,URINE NEGATIVE (NEGATIVE); LEUKOCYTE ESTERASE,URINE NEGATIVE (NEGATIVE); NITRITE,URINE NEGATIVE (NEGATIVE); PROTEIN,URINE NEGATIVE (NEGATIVE); URINE SPECIFIC GRAVITY 1.011; UROBILINOGEN,URINE NEGATIVE mg/dL (<2.0)
[2020-11-13 19:29] LABS: HEMOGLOBIN 6.8 g/dL (13.5-17.0)
[2020-11-13] MEDS ORDERED: NORMAL SALINE 250 ML IV PRN ×2 (23:24)
--- NOTE | 2020-11-13 23:39 | EKG REPORT ---
SEVERITY:- ABNORMAL ECG - ECTOPIC ATRIAL RHYTHM PROBABLE INFERIOR INFARCT, OLD LATERAL LEADS ARE ALSO INVOLVED : Confirmed by: Lubna Stubbs 13-Nov-2020 23:38:54
[2020-11-14] MEDS ORDERED: ACETAMINOPHEN 325 MG TABLET PO PRN (00:07)
[2020-11-14] MEDS ORDERED: ONDANSETRON HCL INJ/PF 4 MG/2 ML SDV IV PRN ×2 (00:07→18:30)
--- NOTE | 2020-11-14 00:12 | PDOC CONSULTATION ---
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 During the admission evaluation, blood work was done and this revealed an H&H of 6.8 and 20, respectively which have dropped from the previous 8.5 and 24.2, respectively on July 12, 2020. The patient reports daily blood per rectum during defecation. In addition, the patient suffers from thrombocytopenia with a platelet count ranging between 60,000-90,000. Today, his platelet count cannot be measured because of clumping. Past Medical History Cardiac Medical History: Reports: Atrial Fibrillation GI Medical History: Reports: Cirrhosis - Secondary to alcohol Musculoskeltal Medical History: Reports: Arthritis, Gout Psychiatric Medical History: Denies: Depression Social History Smoking Status: Never Smoker Electronic Cigarette use?: No Frequency of Alcohol Use: None Hx Recreational Drug Use: No Drugs: None Hx Prescription Drug Abuse: No Family History Family History: Reviewed & Not Pertinent Parental Family History Reviewed: No Children Family History Reviewed: No Sibling(s) Family History Reviewed.: No Medication/Allergy Home Medications: Carvedilol [Coreg 12.5 mg Tablet] 12.5 mg PO Q12 07/06/20 Gabapentin [Neurontin] 800 mg PO TID 07/06/20 Multivitamin with Folic Acid [Tab-A-Renny Tablet] 1 each PO DAILY 07/06/20 Omeprazole 40 mg PO DAILY 07/06/20 Ondansetron [Zofran Odt 4 mg Tablet] 4 mg PO BIDP PRN 07/06/20 Rifaximin [Xifaxan 550 mg Tablet] 550 mg PO QHS 07/06/20 Benzonatate [Tessalon Perles 100 mg Capsule] 100 mg PO Q8HP PRN capsule 07/18/20 Colchicine [Colcrys 0.6 mg Tablet] 1 tab PO DAILY #0 07/18/20 Furosemide [Lasix 20 mg Tablet] 40 mg PO DAILY #0 07/18/20 Lactulose [Cephulac Syrup 20 gm/30 ml Udcup] 20 gm PO DAILY udc 07/18/20 Lidocaine [Lidoderm 5% (700 mg) Transdermal Patch] 1 patch TP DAILY adh..patch 07/18/20 Allergies/Adverse Reactions: No Known Allergies Allergy (Unverified 07/06/20 01:24) Physical Exam Vital Signs: Temp Pulse Resp BP Pulse Ox 98.8 F 14 116/57 L 98 11/13/20 18:01 11/13/20 23:01 11/13/20 23:01 11/13/20 23:01 Intake & Output 11/12/20 11/13/20 11/14/20 06:59 06:59 06:59 Weight 157 kg General appearance: PRESENT: no acute distress, obese, other - Patient is sleepy but arousable, responds appropriately to questions Head exam: PRESENT: atraumatic Eye exam: PRESENT: EOMI - Normal on the left side, other - Right eye blindness Mouth exam: PRESENT: dry mucosa, neck supple Teeth exam: PRESENT: poor dentation Neck exam: PRESENT: full ROM Respiratory exam: PRESENT: clear to auscultation lul Cardiovascular exam: PRESENT: RRR GI/Abdominal exam: PRESENT: distended, organolmegaly - Enlarged liver, soft, other - Not distended, not tender, no surgical scars identified Rectal exam: PRESENT: deferred, other - Heme positive stools Extremities exam: PRESENT: clubbing Musculoskeletal exam: PRESENT: full ROM Neurological exam: PRESENT: alert - Sleepy but arousable, CN II-XII grossly intact Skin exam: PRESENT: warm Results Laboratory Results: 11/13/20 18:30 11/13/20 16:50 11/13/20 11/13/20 11/13/20 16:50 16:50 18:21 WBC Cancelled RBC Cancelled Hgb Cancelled Hct Cancelled MCV Cancelled MCH Cancelled MCHC Cancelled RDW Cancelled Plt Count Cancelled Seg Neutrophils % Cancelled Sodium 126.5 L Potassium 5.7 H Chloride 97 L Carbon Dioxide 24 Anion Gap 6 BUN 61 H Creatinine 2.41 H Est GFR ( Amer) 33 L Glucose 136 H Calcium 8.9 Total Bilirubin 1.4 H AST 54 Alkaline Phosphatase 187 H Total Protein 6.5 Albumin 3.1 L Urine Color YELLOW Urine Appearance CLEAR Urine pH 6.0 Ur Specific [place] 1.011 Urine Protein NEGATIVE Urine Glucose (UA) NEGATIVE Urine Ketones NEGATIVE Urine Blood NEGATIVE Urine Nitrite NEGATIVE Ur Leukocyte Esterase NEGATIVE Urine WBC (Auto) 2 Urine RBC (Auto) 0 Blood Type Antibody Screen 11/13/20 11/13/20 18:30 18:30 WBC 7.5 RBC 2.02 L Hgb 6.8 L Hct 20.0 L MCV 99 H MCH 33.8 H MCHC 34.1 RDW 17.3 H Plt Count Seg Neutrophils % 71.1 Sodium Potassium Chloride Carbon Dioxide Anion Gap BUN Creatinine Est GFR ( Amer) Glucose Calcium Total Bilirubin AST Alkaline Phosphatase Total Protein Albumin Urine Color Urine Appearance Urine pH Ur Specific [place] Urine Protein Urine Glucose (UA) Urine Ketones Urine Blood Urine Nitrite Ur Leukocyte Esterase Urine WBC (Auto) Urine RBC (Auto) Blood Type A POSITIVE Antibody Screen NEGATIVE 11/13/20 11/13/20 11/13/20 16:50 16:50 16:50 Creatine Kinase 116 CK-MB (CK-2) 2.38 Troponin I < 0.012 NT-Pro-B Natriuret Pep 1760 H Impressions: Chest X-Ray 11/13/20 16:47 IMPRESSION: Moderate cardiomegaly with mild pulmonary edema. No focal consolidation. Assessment & Plan - Diagnosis (1) Chronic liver disease and cirrhosis Is this a current diagnosis for this admission?: Yes (2) Thrombocytopenia Is this a current diagnosis for this admission?: Yes (3) Anemia Qualifiers: Anemia type: iron deficiency Iron deficiency anemia type: unspecified iron deficiency Qualified Code(s): D50.9 - Iron deficiency anemia, unspecified Is this a current diagnosis for this admission?: Yes (4) Acute kidney injury Is this a current diagnosis for this admission?: Yes - Plan Summary Plan Summary: Assessment: Shortness of breath with possible CHF as per chest x-ray Alcoholic cirrhosis, end-stage liver disease Patient reports blood per rectum daily during defecation Hyponatremia with hyperkalemia, elevated BUN/creatinine 61 2.4 as per prerenal kidney failure Anemia unknown cause (H&H 6.8 and 20) decreased from the 8.5 24.2, respectively in July 2020 History of thrombocytopenia ranging 60,000-90,000; however, today's platelet count cannot be assessed due to platelets' clumping Elevated bilirubin 1.4 with normal AST ALT Plan: Patient will need EGD colonoscopy When medically stable we will proceed with bowel prep. I wiould keep the patient n.p.o. until his clinical condition has improved
[2020-11-14] MEDS ORDERED: SODIUM CHLORIDE 1 GM TABLET PO SCH (00:15)
--- NOTE | 2020-11-14 00:33 | PDOC H&P ---
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 Patient states he has been seeing bright red blood on the toilet paper when he wipes after bowel movements although he admits this has been going on for years and seems to be worse lately. He states he followed with GI outpatient in the past but this was before he moved here from [place] approximately 6 months ago. Patient had a recent admission on 07/2020 for hyponatremia and he was taken off spironolactone. Patient states he has still been taking this medication along with Lasix however. Sodium is lower than previous value at discharge, currently at 126.5. He also has LIEN with creatinine up to 2.41 and he states he has been gaining weight and taking on fluid in his abdomen and legs which is worse than usual. He previously have a history of alcohol abuse but states he has not drank in quite some time now. General surgery consulted on admission and planning upper and lower endoscopies after patient is transfused to hemoglobin greater than 7. Transfusing 1 unit PRBC on admission followed by IV Lasix. We also have him on sodium chloride tablets. He is highly likely to continue having chronic hyponatremia due to cirrhosis and chronic volume overload and this will be challenging to control with diuretics and other medications. Past Medical History Cardiac Medical History: Reports: Atrial Fibrillation Renal/ Medical History: Reports: Chronic Kidney Disease GI Medical History: Reports: Cirrhosis - Secondary to alcohol, Other - Hemorrhoids Musculoskeltal Medical History: Reports: Arthritis, Gout Psychiatric Medical History: Denies: Depression Past Surgical History Past Surgical History: Reports: Other - Eye surgery Social History Information Source: Patient, Emergency Med Personnel Lives with: Alone Smoking Status: Never Smoker Electronic Cigarette use?: No Frequency of Alcohol Use: None Hx Recreational Drug Use: No Drugs: None Hx Prescription Drug Abuse: No - Advance Directive Resuscitation Status: Do Not Resuscitate Surrogate healthcare decision maker:: Admitting diagnosis: Acute on chronic lower GI bleed All aspects of code status discussed with patient/POA including cardioversion, chest compressions, and intubation and the patient/POA indicated they wish to be DNR/DNI MPOA is designated as: SisterMishel Time spent: Greater than 16 minutes Family History Family History: Reviewed & Not Pertinent Parental Family History Reviewed: Yes Children Family History Reviewed: Yes Sibling(s) Family History Reviewed.: Yes Medication/Allergy Home Medications: Carvedilol [Coreg 12.5 mg Tablet] 12.5 mg PO Q12 07/06/20 Gabapentin [Neurontin] 800 mg PO TID 07/06/20 Multivitamin with Folic Acid [Tab-A-Renny Tablet] 1 each PO DAILY 07/06/20 Omeprazole 40 mg PO DAILY 07/06/20 Ondansetron [Zofran Odt 4 mg Tablet] 4 mg PO BIDP PRN 07/06/20 Rifaximin [Xifaxan 550 mg Tablet] 550 mg PO QHS 07/06/20 Benzonatate [Tessalon Perles 100 mg Capsule] 100 mg PO Q8HP PRN capsule 07/18/20 Colchicine [Colcrys 0.6 mg Tablet] 1 tab PO DAILY #0 07/18/20 Furosemide [Lasix 20 mg Tablet] 40 mg PO DAILY #0 07/18/20 Lactulose [Cephulac Syrup 20 gm/30 ml Udcup] 20 gm PO DAILY udc 07/18/20 Lidocaine [Lidoderm 5% (700 mg) Transdermal Patch] 1 patch TP DAILY adh..patch 07/18/20 Allergies/Adverse Reactions: No Known Allergies Allergy (Unverified 07/06/20 01:24) Review of Systems All systems: reviewed and no additional remarkable complaints except as stated - Per HPI otherwise negative Physical Exam Vital Signs: Temp Pulse Resp BP Pulse Ox 98.8 F 14 116/57 L 98 11/13/20 18:01 11/13/20 23:01 11/13/20 23:01 11/13/20 23:01 Intake & Output 11/12/20 11/13/20 11/14/20 06:59 06:59 06:59 Weight 157 kg Exam: General appearance: PRESENT: no acute distress, well-developed, well-nourished, chronically ill-appearing white male Head exam: PRESENT: atraumatic, normocephalic Eye exam: PRESENT: conjunctiva pink, evidence of previous healed trauma of eyes. ABSENT: scleral icterus Mouth exam: PRESENT: moist Respiratory exam: PRESENT: clear to auscultation lul. ABSENT: rales, rhonchi, wheezes Cardiovascular exam: PRESENT: RRR, +2-3 chronic BLE edema. ABSENT: diastolic murmur, rubs, systolic murmur GI/Abdominal exam: PRESENT: normal bowel sounds, soft, largely distended abdomen. ABSENT: guarding, mass, organolmegaly, rebound, tenderness Neurological exam: PRESENT: alert, awake, oriented to person, oriented to place, oriented to time, oriented to situation Psychiatric exam: PRESENT: appropriate affect, normal mood Skin exam: PRESENT: dry, intact, warm Results Laboratory Results: 11/13/20 18:30 11/13/20 16:50 11/13/20 11/13/20 11/13/20 16:50 16:50 18:21 WBC Cancelled RBC Cancelled Hgb Cancelled Hct Cancelled MCV Cancelled MCH Cancelled MCHC Cancelled RDW Cancelled Plt Count Cancelled Seg Neutrophils % Cancelled Sodium 126.5 L Potassium 5.7 H Chloride 97 L Carbon Dioxide 24 Anion Gap 6 BUN 61 H Creatinine 2.41 H Est GFR ( Amer) 33 L Glucose 136 H Calcium 8.9 Total Bilirubin 1.4 H AST 54 Alkaline Phosphatase 187 H Total Protein 6.5 Albumin 3.1 L Urine Color YELLOW Urine Appearance CLEAR Urine pH 6.0 Ur Specific [place] 1.011 Urine Protein NEGATIVE Urine Glucose (UA) NEGATIVE Urine Ketones NEGATIVE Urine Blood NEGATIVE Urine Nitrite NEGATIVE Ur Leukocyte Esterase NEGATIVE Urine WBC (Auto) 2 Urine RBC (Auto) 0 Blood Type Antibody Screen 11/13/20 11/13/20 18:30 18:30 WBC 7.5 RBC 2.02 L Hgb 6.8 L Hct 20.0 L MCV 99 H MCH 33.8 H MCHC 34.1 RDW 17.3 H Plt Count Seg Neutrophils % 71.1 Sodium Potassium Chloride Carbon Dioxide Anion Gap BUN Creatinine Est GFR ( Amer) Glucose Calcium Total Bilirubin AST Alkaline Phosphatase Total Protein Albumin Urine Color Urine Appearance Urine pH Ur Specific [place] Urine Protein Urine Glucose (UA) Urine Ketones Urine Blood Urine Nitrite Ur Leukocyte Esterase Urine WBC (Auto) Urine RBC (Auto) Blood Type A POSITIVE Antibody Screen NEGATIVE 11/13/20 11/13/20 11/13/20 16:50 16:50 16:50 Creatine Kinase 116 CK-MB (CK-2) 2.38 Troponin I < 0.012 NT-Pro-B Natriuret Pep 1760 H Impressions: Chest X-Ray 11/13/20 16:47 IMPRESSION: Moderate cardiomegaly with mild pulmonary edema. No focal consolidation. Assessment and Plan - Diagnosis (1) Acute GI bleeding Is this a current diagnosis for this admission?: Yes Plan: Likely acute on chronic lower GI bleeding but patient also at risk for variceal bleeds due to cirrhosis Hemoglobin down to 6.8 on admission, previous values typically in the mid e ights at baseline Transfuse 1 unit PRBC on admission Trend CBC General surgery consulted: Planning colonoscopy and upper endoscopy IV PPI N.p.o. Anusol Needs follow-up with local GI discharge (2) Acute on chronic blood loss anemia Is this a current diagnosis for this admission?: Yes Plan: Suspect due to chronic hemorrhoidal bleed but also at risk for upper GI bleed due to cirrhosis Trend CBC Transfuse for hemoglobin less than 7 Symptomatic with shortness of breath and generalized weakness on admission (3) Acute kidney injury superimposed on CKD Is this a current diagnosis for this admission?: Yes Plan: Likely prerenal due to worsening anemia Possible also has volume overload due to cirrhosis Transfuse blood as above followed by Lasix to manage volume (4) Hemorrhoids Qualifiers: Hemorrhoid type: unspecified Qualified Code(s): K64.9 - Unspecified hemorrhoids Is this a current diagnosis for this admission?: Yes Plan: May benefit from hemorrhoidal banding outpatient (5) Alcoholic cirrhosis of liver Qualifiers: Ascites presence: unspecified Qualified Code(s): K70.30 - Alcoholic cirrhosis of liver without ascites Is this a current diagnosis for this admission?: Yes Plan: Chronic cirrhosis Taken off Aldactone during last admission 07/2020 due to severe hyponatremia however patient states he continues to take this medication outpatient IV Lasix, transition to p.o. discharge Continue rifaximin and lactulose GI follow-up outpatient (6) Bilateral lower extremity edema Is this a current diagnosis for this admission?: Yes (7) Hyperkalemia Is this a current diagnosis for this admission?: Yes Plan: Likely due to acute renal failure IV Lasix (8) Hyponatremia Is this a current diagnosis for this admission?: Yes Plan: Likely due to volume overload in setting of chronic cirrhosis Salt tablets, IV Lasix (9) Thrombocytopenia Is this a current diagnosis for this admission?: Yes Plan: Chronic - Time Time Spent with patient: 35 or more minutes Medications reviewed and adjusted accordingly: Yes Anticipated Discharge Disposition: Home, Self Care Anticipated Discharge Timeframe: within 72 hours
[2020-11-14] MEDS: PANTOPRAZOLE SODIUM 40 MG VIAL IV SCH ×3 (01:11→22:19)
--- NOTE | 2020-11-14 02:35 | ER Document Report ---
ED General - General Chief Complaint: Shortness Of Breath Stated Complaint: SHORTNESS OF BREATH Time Seen by Provider: 11/13/20 21:27 Mode of Arrival: Medic Information source: Patient, Emergency Med Personnel - [facility] Notes: Progressively worsening dyspnea on exertion over the last several days. Patient has been feeling somewhat weak. He denies any abdominal pain. He does not know whether his stools have been bloody or black. He denies any hematemesis or coffee-ground emesis. He has had a colonoscopy and an upper endoscopy in the remote past but has had no studies recently. His primary care doctor referred him to a aerodynamics engineer for evaluation of his anemia and the patient says that he saw the aerodynamics engineer yesterday. He cannot give me any more information than that right now. None of the notes from his primary care doctor or from the aerodynamics engineer are available for review. The patient is otherwise in his usual state of somewhat poor health. - Related Data Allergies/Adverse Reactions: No Known Allergies Allergy (Unverified 07/06/20 01:24) Past Medical History - General Information source: Patient, [facility] Records - Social History Smoking Status: Never Smoker Chew tobacco use (# tins/day): No Frequency of alcohol use: hx of alcohol use Drug Abuse: None Lives with: Alone Family History: Reviewed & Not Pertinent - Medical History Medical History: Other Notes: Past medical history as documented in the electronic health record is reviewed. - Past Medical History Cardiac Medical History: Reports: Hx Atrial Fibrillation GI Medical History: Reports: Hx Cirrhosis - Secondary to alcohol, Hx Liver Failure, Other - Hemorrhoids Musculoskeletal Medical History: Reports Hx Arthritis, Reports Hx Gout Psychiatric Medical History: Denies: Hx Depression Past Surgical History: Reports: Other - Eye surgery Review of Systems - Review of Systems Notes: All other systems were reviewed and are negative or noncontributory sepsis noted the present illness. Physical Exam - Vital signs Vitals: Resp Pulse Ox 15 97 11/13/20 16:35 11/13/20 16:35 - Notes Notes: This patient is a morbidly obese chronically ill-appearing male in no acute distress. Vital signs and nursing chief complaint are reviewed. HEENT: Patient wears a patch over his right eye which was traumatically injured as a child. ENT exam is otherwise grossly normal. Neck: Supple no adenopathy. Chest: Normal configuration lungs clear to auscultation. Heart: Distant tones regular rate and rhythm no murmur. Abdomen: Morbidly obese soft mild epigastric direct tenderness. No masses organomegaly. Rectal: Dark brownish-black stool was recovered which was Hemoccult positive. Extremities: 3+ woody nonpitting edema to the knees bilaterally. Skin: Warm and dry and relatively intact. Neuro: No focal neuro deficits noted. Course - Re-evaluation Re-evalutation: 11/14/20 02:36 Patient remained hemodynamically stable. Think his dyspnea is likely due to his anemia in combination with his congestive heart failure. I discussed the case with the hospitalist on duty who accepted the patient for admission and asked me to notify the surgeon on-call as a courtesy. I spoke with the surgeon director of corporate responsibility as well so he was aware of the patient. - Vital Signs Vital signs: Temp Pulse Resp BP Pulse Ox 98.1 F 53 L 16 117/52 L 96 11/14/20 02:18 11/14/20 02:18 11/14/20 02:18 11/14/20 02:18 11/14/20 02:18 - Laboratory Results Result Diagrams: 11/13/20 18:30 11/13/20 16:50 Laboratory Results Interpreted: 11/13/20 11/13/20 11/13/20 16:50 16:50 18:30 RBC 2.02 L Hgb 6.8 L Hct 20.0 L MCV 99 H MCH 33.8 H RDW 17.3 H Lymph % (Auto) 11.6 L [place] % (Auto) 13.9 H Sodium 126.5 L Potassium 5.7 H Chloride 97 L BUN 61 H Creatinine 2.41 H Est GFR ( Amer) 33 L Est GFR (MDRD) Non-Af 28 L Glucose 136 H Total Bilirubin 1.4 H Direct Bilirubin 0.7 H Alkaline Phosphatase 187 H NT-Pro-B Natriuret Pep 1760 H Albumin 3.1 L Crossmatch 11/13/20 18:30 RBC Hgb Hct MCV MCH RDW Lymph % (Auto) [place] % (Auto) Sodium Potassium Chloride BUN Creatinine Est GFR ( Amer) Est GFR (MDRD) Non-Af Glucose Total Bilirubin Direct Bilirubin Alkaline Phosphatase NT-Pro-B Natriuret Pep Albumin Crossmatch See Detail Critical Laboratory Results Reviewed: Yes Attending or Supervising Physician who Reviewed Labs: WASKIN,WONG B - Radiology Results Critical Radiology Results Reviewed: No Critical Results Discharge - Discharge Clinical Impression: Lower GI bleeding, Acute kidney injury Condition: Serious Disposition: ADMITTED INPATIENT Admitting Provider: Su (Hospitalist) Unit Admitted: Medical Floor
[2020-11-14] MEDS: SODIUM CHLORIDE 1 GM TABLET PO SCH ×2 (05:01→18:08)
[2020-11-14] MEDS ORDERED: PEG 3350/NA SULF,BICARB,CL/KCL 4000 ML PO PRN (08:55)
--- NOTE | 2020-11-14 09:06 | PDOC PROGRESS REPORT ---
Subjective Date:: 11/14/20 Subjective:: Patient lying in bed comfortable has denies any further bleeding per rectum. Reason For Visit: ACUTE HYPONATREMIA,CHRONIC LOWER GI BLEEDING, Physical Exam Vital Signs: Temp Pulse Resp BP Pulse Ox 97.6 F 55 L 16 135/46 H 96 11/14/20 08:23 11/14/20 08:23 11/14/20 08:23 11/14/20 08:23 11/14/20 08:23 Intake & Output 11/13/20 11/14/20 11/15/20 06:59 06:59 06:59 Intake Total 400 Output Total 0 Balance 400 Weight 143.244 kg General appearance: PRESENT: no acute distress, morbidly obese Head exam: PRESENT: normocephalic Eye exam: PRESENT: EOMI Ear exam: PRESENT: normal external ear exam Mouth exam: PRESENT: moist Teeth exam: PRESENT: poor dentation Neck exam: PRESENT: full ROM Respiratory exam: PRESENT: clear to auscultation lul Cardiovascular exam: PRESENT: RRR Breast: PRESENT: Normal GI/Abdominal exam: PRESENT: soft Rectal exam: PRESENT: deferred Extremities exam: PRESENT: full ROM Neurological exam: PRESENT: alert, awake, oriented to person, oriented to place Psychiatric exam: PRESENT: appropriate affect Skin exam: PRESENT: dry Results Laboratory Results: 11/14/20 07:36 11/13/20 11/13/20 11/13/20 16:50 16:50 18:21 WBC Cancelled RBC Cancelled Hgb Cancelled Hct Cancelled MCV Cancelled MCH Cancelled MCHC Cancelled RDW Cancelled Plt Count Cancelled Seg Neutrophils % Cancelled Retic Count (auto) Absolute Retic Sodium 126.5 L Potassium 5.7 H Chloride 97 L Carbon Dioxide 24 Anion Gap 6 BUN 61 H Creatinine 2.41 H Est GFR ( Amer) 33 L Glucose 136 H Calcium 8.9 Total Bilirubin 1.4 H AST 54 Alkaline Phosphatase 187 H Total Protein 6.5 Albumin 3.1 L Urine Color YELLOW Urine Appearance CLEAR Urine pH 6.0 Ur Specific [place] 1.011 Urine Protein NEGATIVE Urine Glucose (UA) NEGATIVE Urine Ketones NEGATIVE Urine Blood NEGATIVE Urine Nitrite NEGATIVE Ur Leukocyte Esterase NEGATIVE Urine WBC (Auto) 2 Urine RBC (Auto) 0 Blood Type Antibody Screen 11/13/20 11/13/20 11/14/20 18:30 18:30 07:36 WBC 7.5 Cancelled RBC 2.02 L Cancelled Hgb 6.8 L Cancelled Hct 20.0 L Cancelled MCV 99 H Cancelled MCH 33.8 H Cancelled MCHC 34.1 Cancelled RDW 17.3 H Cancelled Plt Count Cancelled Seg Neutrophils % 71.1 Cancelled Retic Count (auto) Cancelled Absolute Retic Cancelled Sodium Potassium Chloride Carbon Dioxide Anion Gap BUN Creatinine Est GFR ( Amer) Glucose Calcium Total Bilirubin AST Alkaline Phosphatase Total Protein Albumin Urine Color Urine Appearance Urine pH Ur Specific [place] Urine Protein Urine Glucose (UA) Urine Ketones Urine Blood Urine Nitrite Ur Leukocyte Esterase Urine WBC (Auto) Urine RBC (Auto) Blood Type A POSITIVE Antibody Screen NEGATIVE 11/13/20 11/13/20 11/13/20 16:50 16:50 16:50 Creatine Kinase 116 CK-MB (CK-2) 2.38 Troponin I < 0.012 NT-Pro-B Natriuret Pep 1760 H Impressions: Chest X-Ray 11/13/20 16:47 IMPRESSION: Moderate cardiomegaly with mild pulmonary edema. No focal consolidation. Assessment & Plan - Time Anticipated Discharge Disposition: Home, Self Care Anticipated Discharge Timeframe: Unknown - Plan Summary Plan Summary: Impressions possible GI bleed with anemia. History of cirrhosis. Last colonoscopy was approximately 6 years ago according to the patient who states that it was normal. Surgery was consulted for possible upper and lower endoscopy secondary to GI bleed and anemia. However today patient still does not have a platelet count and that is pending. Patient has received at least 1 if possibly 2 units of blood since his admission. I have ordered a bowel prep today for possible colonoscopy tomorrow.
[2020-11-14 09:13] LABS: ANION GAP 7 (5-19); BLOOD UREA NITROGEN 63 mg/dL (7-20); CALCIUM 8.9 mg/dL (8.4-10.2); CARBON DIOXIDE 23 mmol/L (22-30); CHLORIDE 98 mmol/L (98-107); GLUCOSE 113 mg/dL (75-110); IRON(TIBC) 88.5 ug/dL (49-181); PHOSPHORUS 4.5 mg/dL (2.5-4.5); POTASSIUM 5.7 mmol/L (3.6-5.0)
[2020-11-14] MEDS: COLCHICINE 0.6 MG TABLET PO SCH (10:19)
[2020-11-14] MEDS: LACTULOSE SYRUP 20 GM/30 ML UDCUP PO SCH (10:19)
[2020-11-14] MEDS: VITAMIN B COMPLEX TABLET PO SCH (10:19)
[2020-11-14] MEDS: MULTIVITAMIN TABLET PO SCH (10:19)
[2020-11-14] MEDS: FUROSEMIDE INJ/PF 20 MG/2 ML SDV IV SCH ×2 (10:19→18:08)
[2020-11-14] MEDS: CARVEDILOL 12.5 MG TABLET PO SCH ×2 (10:19→22:19)
[2020-11-14] MEDS: GABAPENTIN 300 MG CAPSULE PO SCH ×3 (10:19→18:04)
[2020-11-14] MEDS: LIDOCAINE 5% (700 MG) TRANSDERMAL ADH..PATCH TP SCH (10:20)
[2020-11-14] MEDS: HYDROCORTISONE ACETATE 25 MG SUPP.RECT PR SCH ×2 (10:20→17:37)
[2020-11-14 11:10] LABS: HEMATOCRIT 20.8 % (37.9-51.0); MEAN CORPUSCULAR HEMOGLOBIN 32.4 pg (27.0-33.4); MEAN CORPUSCULAR HGB CONC 33.5 g/dL (32.0-36.0); MEAN CORPUSCULAR VOLUME 97 fl (80-97); RED BLOOD COUNT 2.15 10^6/uL (4.35-5.55); WHITE BLOOD COUNT 6.6 10^3/uL (4.0-10.5)
[2020-11-14 11:11] LABS: ABSOLUTE MONOCYTES (AUTO) 0.9 10^3/uL (0.1-1.4); ABSOLUTE NEUT (AUTO) 4.4 10^3/uL (1.7-8.2); BASOPHILS % (AUTO) 0.7 % (0-2); EOSINOPHILS % (AUTO) 2.9 % (0-6); LYMPHOCYTES % (AUTO) 15.8 % (13-45); MONOCYTES % (AUTO) 13.3 % (3-13); RED CELL DISTRIBUTION WIDTH 18.6 % (11.5-14.0); SEGMENTED NEUTROPHILS % (AUTO) 67.3 % (42-78); TOTAL CELLS COUNTED % (AUTO) 100 %
[2020-11-14 11:12] LABS: ABSOLUTE EOSINOPHILS # (AUTO) 0.2 10^3/uL (0.0-0.6)
[2020-11-14 11:17] LABS: PLATELET COUNT 76 10^3/uL (150-450)
[2020-11-14] MEDS ORDERED: NORMAL SALINE 250 ML IV PRN ×2 (14:56)
[2020-11-14] MEDS: ONDANSETRON 4 MG TAB.RAPDIS PO PRN (18:09)
--- NOTE | 2020-11-14 18:11 | PDOC PROGRESS REPORT ---
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 Patient states he has been seeing bright red blood on the toilet paper when he wipes after bowel movements although he admits this has been going on for years and seems to be worse lately. He states he followed with GI outpatient in the past but this was before he moved here from [place] approximately 6 months ago. Patient had a recent admission on 07/2020 for hyponatremia and he was taken off spironolactone. Patient states he has still been taking this medication along with Lasix however. Sodium is lower than previous value at discharge, currently at 126.5. He also has LIEN with creatinine up to 2.41 and he states he has been gaining weight and taking on fluid in his abdomen and legs which is worse than usual. H e previously have a history of alcohol abuse but states he has not drank in quite some time now. General surgery consulted on admission and planning upper and lower endoscopies after patient is transfused to hemoglobin greater than 7. Transfusing 1 unit PRBC on admission followed by IV Lasix. We also have him on sodium chloride tablets. He is highly likely to continue having chronic hyponatremia due to cirrhosis and chronic volume overload and this will be challenging to control with diuretics and other medications." D1 hospital stay.Care assumed today. Patient was seen and examined at bedside. He states that he is very nauseous, but otherwise he feels that his leg swelling has gone down. Denies any chest pain, SOB, abdominal pain. Per surgery recs, plan is for colonoscopy tomorrow. S/p 1 unit PRBC with a repeat hgb of 7, additional unit ordered. Reason For Visit: ACUTE HYPONATREMIA,CHRONIC LOWER GI BLEEDING, Physical Exam Vital Signs: Temp Pulse Resp BP Pulse Ox 98.0 F 55 L 19 102/40 L 97 11/14/20 16:07 11/14/20 16:07 11/14/20 16:07 11/14/20 16:07 11/14/20 16:07 Intake & Output 11/13/20 11/14/20 11/15/20 06:59 06:59 06:59 Intake Total 400 380 Output Total 0 150 Balance 400 230 Weight 143.244 kg 143.244 kg General appearance: PRESENT: no acute distress, cooperative, morbidly obese Head exam: PRESENT: atraumatic, normocephalic Eye exam: PRESENT: EOMI, PERRLA Mouth exam: PRESENT: moist Neck exam: PRESENT: full ROM Respiratory exam: PRESENT: clear to auscultation lul, symmetrical, unlabored Cardiovascular exam: PRESENT: RRR, +S1, +S2 Pulses: PRESENT: +2 pedal pulses bilateral GI/Abdominal exam: PRESENT: ascites, normal bowel sounds, soft. ABSENT: rebound, tenderness Extremities exam: PRESENT: full ROM, +2 edema Musculoskeletal exam: PRESENT: full ROM Neurological exam: PRESENT: alert, awake, oriented to person, oriented to place, oriented to time, oriented to situation Psychiatric exam: PRESENT: unusual affect Skin exam: PRESENT: normal color Results Laboratory Results: 11/14/20 10:05 11/14/20 08:29 11/13/20 11/13/20 11/13/20 18:21 18:30 18:30 WBC 7.5 RBC 2.02 L Hgb 6.8 L Hct 20.0 L MCV 99 H MCH 33.8 H MCHC 34.1 RDW 17.3 H Plt Count Seg Neutrophils % 71.1 Retic Count (auto) Absolute Retic Sodium Potassium Chloride Carbon Dioxide Anion Gap BUN Creatinine Est GFR ( Amer) Glucose Calcium Phosphorus Magnesium Iron TIBC % Saturation Ferritin Vitamin B12 Folate Urine Color YELLOW Urine Appearance CLEAR Urine pH 6.0 Ur Specific [place] 1.011 Urine Protein NEGATIVE Urine Glucose (UA) NEGATIVE Urine Ketones NEGATIVE Urine Blood NEGATIVE Urine Nitrite NEGATIVE Ur Leukocyte Esterase NEGATIVE Urine WBC (Auto) 2 Urine RBC (Auto) 0 Blood Type A POSITIVE Antibody Screen NEGATIVE 11/14/20 11/14/20 11/14/20 07:36 08:29 10:05 WBC Cancelled 6.6 RBC Cancelled 2.15 L Hgb Cancelled 7.0 L Hct Cancelled 20.8 L MCV Cancelled 97 MCH Cancelled 32.4 MCHC Cancelled 33.5 RDW Cancelled 18.6 H Plt Count Cancelled 76 L Seg Neutrophils % Cancelled 67.3 Retic Count (auto) Cancelled Absolute Retic Cancelled Sodium 127.9 L Potassium 5.7 H Chloride 98 Carbon Dioxide 23 Anion Gap 7 BUN 63 H Creatinine 2.36 H Est GFR ( Amer) 34 L Glucose 113 H Calcium 8.9 Phosphorus 4.5 Magnesium 2.4 H Iron 88.5 TIBC 407 % Saturation 22 Ferritin 29.60 Vitamin B12 > 1000.0 H Folate 19.60 Urine Color Urine Appearance Urine pH Ur Specific [place] Urine Protein Urine Glucose (UA) Urine Ketones Urine Blood Urine Nitrite Ur Leukocyte Esterase Urine WBC (Auto) Urine RBC (Auto) Blood Type Antibody Screen 11/13/20 11/13/20 11/13/20 16:50 16:50 16:50 Creatine Kinase 116 CK-MB (CK-2) 2.38 Troponin I < 0.012 NT-Pro-B Natriuret Pep 1760 H Impressions: Chest X-Ray 11/13/20 16:47 IMPRESSION: Moderate cardiomegaly with mild pulmonary edema. No focal consolidation. Assessment and Plan - Diagnosis (1) Acute GI bleeding Is this a current diagnosis for this admission?: Yes Plan: Likely acute on chronic lower GI bleeding but patient also at risk for variceal bleeds due to cirrhosis Hemoglobin down to 6.8 >7.0 s/p 1 unit PRBC, baseline 8 Trend CBC General surgery consulted: Planning colonoscopy and upper endoscopy IV PPI N.p.o. Anusol Needs follow-up with local GI discharge (2) Acute kidney injury superimposed on CKD Is this a current diagnosis for this admission?: Yes Plan: - Crea 2.3 baseline about 1.2 Likely prerenal due to worsening anemia Possible also has volume overload due to cirrhosis Pre renal or hepatorenal - will CTM - continue lasix for now due to hypervolemic hyponatremia (3) Acute on chronic blood loss anemia Is this a current diagnosis for this admission?: Yes Plan: Suspect due to chronic hemorrhoidal bleed but also at risk for upper GI bleed due to cirrhosis s/p 1 unit pRBC hgb incerased to 7. 1 more unit ordered - will CTM (4) Hemorrhoids Qualifiers: Hemorrhoid type: unspecified Qualified Code(s): K64.9 - Unspecified hemorrhoids Is this a current diagnosis for this admission?: Yes Plan: May benefit from hemorrhoidal banding outpatient (5) Alcoholic cirrhosis of liver Qualifiers: Ascites presence: unspecified Qualified Code(s): K70.30 - Alcoholic cirrhosis of liver without ascites Is this a current diagnosis for this admission?: Yes Plan: Chronic cirrhosis Taken off Aldactone during last admission 07/2020 due to severe hyponatremia however patient states he continues to take this medication outpatient - TODD ordered IV Lasix, transition to p.o. discharge Continue rifaximin and lactulose GI follow-up outpatient (6) Bilateral lower extremity edema Is this a current diagnosis for this admission?: Yes Plan: - / to cirrhosis - continue lasix (7) Hyperkalemia Is this a current diagnosis for this admission?: Yes (8) Hyponatremia Is this a current diagnosis for this admission?: Yes Plan: Likely due to volume overload in setting of chronic cirrhosis Salt tablets, IV Lasix (9) Thrombocytopenia Is this a current diagnosis for this admission?: Yes Plan: Chronic - Time Time Spent with patient: 25-34 minutes Medications reviewed and adjusted accordingly: Yes Anticipated Discharge Disposition: Home with Home Health Anticipated Discharge Timeframe: tbd
[2020-11-14 20:52] LABS: ABSOLUTE BASOPHILS # (AUTO) 0.1 10^3/uL (0.0-0.2); ABSOLUTE EOSINOPHILS # (AUTO) 0.2 10^3/uL (0.0-0.6); ABSOLUTE MONOCYTES (AUTO) 0.9 10^3/uL (0.1-1.4); ABSOLUTE NEUT (AUTO) 4.8 10^3/uL (1.7-8.2); BASOPHILS % (AUTO) 0.9 % (0-2); EOSINOPHILS % (AUTO) 2.4 % (0-6); HEMATOCRIT 23.4 % (37.9-51.0); LYMPHOCYTES % (AUTO) 13.9 % (13-45); MEAN CORPUSCULAR HEMOGLOBIN 31.7 pg (27.0-33.4); MEAN CORPUSCULAR HGB CONC 33.8 g/dL (32.0-36.0); MEAN CORPUSCULAR VOLUME 94 fl (80-97); MONOCYTES % (AUTO) 13.4 % (3-13); RED CELL DISTRIBUTION WIDTH 20.8 % (11.5-14.0); SEGMENTED NEUTROPHILS % (AUTO) 69.4 % (42-78); TOTAL CELLS COUNTED % (AUTO) 100 %; WHITE BLOOD COUNT 6.9 10^3/uL (4.0-10.5)
[2020-11-14 21:11] LABS: HEMOGLOBIN 7.9 g/dL (13.5-17.0)
[2020-11-14] MEDS: RIFAXIMIN 550 MG TABLET PO SCH (22:19)
[2020-11-15] MEDS: SODIUM CHLORIDE 1 GM TABLET PO SCH ×2 (06:03→17:25)
[2020-11-15 06:08] LABS: ABSOLUTE EOSINOPHILS # (AUTO) 0.2 10^3/uL (0.0-0.6); ABSOLUTE LYMPHOCYTES (AUTO) 1.2 10^3/uL (0.5-4.7); ABSOLUTE NEUT (AUTO) 4.3 10^3/uL (1.7-8.2); BASOPHILS % (AUTO) 0.3 % (0-2); EOSINOPHILS % (AUTO) 3.5 % (0-6); HEMATOCRIT 22.4 % (37.9-51.0); LYMPHOCYTES % (AUTO) 18.4 % (13-45); MEAN CORPUSCULAR VOLUME 94 fl (80-97); MONOCYTES % (AUTO) 14.2 % (3-13); RED BLOOD COUNT 2.38 10^6/uL (4.35-5.55); RED CELL DISTRIBUTION WIDTH 20.7 % (11.5-14.0); SEGMENTED NEUTROPHILS % (AUTO) 63.6 % (42-78); TOTAL CELLS COUNTED % (AUTO) 100 %; WHITE BLOOD COUNT 6.8 10^3/uL (4.0-10.5)
[2020-11-15 06:40] LABS: PLATELET COUNT 69 10^3/uL (150-450)
[2020-11-15 06:48] LABS: HEMOGLOBIN 7.6 g/dL (13.5-17.0)
[2020-11-15] MEDS: ONDANSETRON 4 MG TAB.RAPDIS PO PRN (07:48)
--- NOTE | 2020-11-15 07:51 | PDOC PROGRESS REPORT ---
Subjective Date:: 11/15/20 Subjective:: No complaints Reason For Visit: ACUTE HYPONATREMIA,CHRONIC LOWER GI BLEEDING, Physical Exam Vital Signs: Temp Pulse Resp BP Pulse Ox 97.6 F 53 L 20 129/58 H 96 11/14/20 23:16 11/14/20 23:16 11/14/20 23:16 11/14/20 19:38 11/14/20 23:16 Intake & Output 11/14/20 11/15/20 11/16/20 06:59 06:59 06:59 Intake Total 400 1350 Output Total 0 550 Balance 400 800 Weight 143.244 kg 141.022 kg General appearance: PRESENT: no acute distress, obese GI/Abdominal exam: PRESENT: soft Results Laboratory Results: 11/15/20 05:53 11/15/20 05:47 11/13/20 11/14/20 11/14/20 18:30 07:36 08:29 WBC Cancelled RBC Cancelled Hgb Cancelled Hct Cancelled MCV Cancelled MCH Cancelled MCHC Cancelled RDW Cancelled Plt Count Cancelled Seg Neutrophils % Cancelled Retic Count (auto) Cancelled Absolute Retic Cancelled Sodium 127.9 L Potassium 5.7 H Chloride 98 Carbon Dioxide 23 Anion Gap 7 BUN 63 H Creatinine 2.36 H Est GFR ( Amer) 34 L Est GFR (Non-Af Amer) Glucose 113 H Calcium 8.9 Phosphorus 4.5 Magnesium 2.4 H Iron 88.5 TIBC 407 % Saturation 22 Ferritin 29.60 Ammonia Vitamin B12 > 1000.0 H Folate 19.60 Blood Type A POSITIVE Antibody Screen NEGATIVE 11/14/20 11/14/20 11/14/20 10:05 20:33 20:33 WBC 6.6 6.9 RBC 2.15 L 2.50 L Hgb 7.0 L 7.9 L Hct 20.8 L 23.4 L MCV 97 94 MCH 32.4 31.7 MCHC 33.5 33.8 RDW 18.6 H 20.8 H Plt Count 76 L Seg Neutrophils % 67.3 69.4 Retic Count (auto) Absolute Retic Sodium Potassium Chloride Carbon Dioxide Anion Gap BUN Creatinine Est GFR ( Amer) Est GFR (Non-Af Amer) Glucose Calcium Phosphorus Magnesium Iron TIBC % Saturation Ferritin Ammonia 91.0 H Vitamin B12 Folate Blood Type Antibody Screen 11/15/20 11/15/20 05:47 05:53 WBC 6.8 RBC 2.38 L Hgb 7.6 L Hct 22.4 L MCV 94 MCH 32.0 MCHC 34.0 RDW 20.7 H Plt Count 69 L Seg Neutrophils % 63.6 Retic Count (auto) Absolute Retic Sodium Cancelled Potassium Cancelled Chloride Cancelled Carbon Dioxide Cancelled Anion Gap Cancelled BUN Cancelled Creatinine Cancelled Est GFR ( Amer) Cancelled Est GFR (Non-Af Amer) Cancelled Glucose Cancelled Calcium Cancelled Phosphorus Cancelled Magnesium Cancelled Iron TIBC % Saturation Ferritin Ammonia Vitamin B12 Folate Blood Type Antibody Screen 11/13/20 11/13/20 11/13/20 16:50 16:50 16:50 Creatine Kinase 116 CK-MB (CK-2) 2.38 Troponin I < 0.012 NT-Pro-B Natriuret Pep 1760 H Impressions: Chest X-Ray 11/13/20 16:47 IMPRESSION: Moderate cardiomegaly with mild pulmonary edema. No focal consolidation. Assessment & Plan - Diagnosis (1) Chronic liver disease and cirrhosis Is this a current diagnosis for this admission?: Yes (2) Thrombocytopenia Is this a current diagnosis for this admission?: Yes (3) Anemia Qualifiers: Anemia type: iron deficiency Iron deficiency anemia type: unspecified iron deficiency Qualified Code(s): D50.9 - Iron deficiency anemia, unspecified Is this a current diagnosis for this admission?: Yes (4) Acute kidney injury Is this a current diagnosis for this admission?: Yes - Time Anticipated Discharge Disposition: Home with Home Health Anticipated Discharge Timeframe: when ready - Plan Summary Plan Summary: Assessment: Alcoholic cirrhosis Anemia Hemoglobin hematocrit 7.6 and 22.4, unchanged since administration of 1 unit of blood (7.9 and 24.4, respectively) Abdomen soft No blood per rectum or hematemesis reported during the past 24 hours Patient currently receiving a bowel prep by mouth Plan: EGD and colonoscopy today Seizure, risks, benefits, complications, alternatives, explained to the patient, he understands all the above, he decides to proceed
--- NOTE | 2020-11-15 08:06 | RADIOLOGY REPORT (SQ) ---
EXAM DESCRIPTION: U/S ABDOMEN LIMITED W/O DOP IMAGES COMPLETED DATE/TIME: 11/14/2020 8:03 pm REASON FOR STUDY: cirrhosis COMPARISON: None. TECHNIQUE: Dynamic and static grayscale images acquired of the abdomen and recorded on PACS. Additio nal selected color Doppler and spectral images recorded. LIMITATIONS: Portable exam. Obesity. FINDINGS: PANCREAS: Not visualized. Poor acoustical windows LIVER: Normal size fatty infiltration. No focal masses. LIVER VASCULATURE: Normal directional flow of the main portal vein and hepatic veins. GALLBLADDER: TIRADS ULTRASOUND-DETECTED GUZMAN'S SIGN: Negative. INTRAHEPATIC DUCTS AND COMMON DUCT: CBD and intrahepatic ducts normal caliber. No filling defects. INFERIOR VENA CAVA: Normal flow. AORTA: No aneurysm. RIGHT KIDNEY: Normal size. Normal echogenicity. No solid or suspicious masses. No hydronephros is. No calcifications. PERITONEAL AND RIGHT PLEURAL SPACE: No ascites or effusions. OTHER: No other significant findings. IMPRESSION: Fatty liver without other significant findings. TECHNICAL DOCUMENTATION: JOB ID: [id number] 2010 [employer]- All Rights Reserved Reading location - IP/workstation name: [email or web address]
[2020-11-15] MEDS ORDERED: BISACODYL 5 MG TABEC PO ONE (08:15)
[2020-11-15 08:31] LABS: ANION GAP 6 (5-19); BLOOD UREA NITROGEN 62 mg/dL (7-20); CARBON DIOXIDE 24 mmol/L (22-30); CHLORIDE 99 mmol/L (98-107); GLUCOSE 117 mg/dL (75-110); PHOSPHORUS 4.3 mg/dL (2.5-4.5); POTASSIUM 5.6 mmol/L (3.6-5.0)
[2020-11-15] MEDS: FUROSEMIDE INJ/PF 20 MG/2 ML SDV IV SCH ×2 (10:39→17:25)
[2020-11-15] MEDS: GABAPENTIN 300 MG CAPSULE PO SCH ×3 (10:39→17:25)
[2020-11-15] MEDS: LACTULOSE SYRUP 20 GM/30 ML UDCUP PO SCH (10:39)
[2020-11-15] MEDS: LIDOCAINE 5% (700 MG) TRANSDERMAL ADH..PATCH TP SCH (10:39)
[2020-11-15] MEDS: HYDROCORTISONE ACETATE 25 MG SUPP.RECT PR SCH ×2 (10:39→17:25)
[2020-11-15] MEDS: CARVEDILOL 12.5 MG TABLET PO SCH ×2 (10:39→21:56)
[2020-11-15] MEDS: COLCHICINE 0.6 MG TABLET PO SCH (10:39)
[2020-11-15] MEDS: VITAMIN B COMPLEX TABLET PO SCH (10:40)
[2020-11-15] MEDS: PANTOPRAZOLE SODIUM 40 MG VIAL IV SCH ×2 (10:40→21:56)
[2020-11-15] MEDS: MULTIVITAMIN TABLET PO SCH (10:40)
[2020-11-15] MEDS ORDERED: GLUCAGON,HUMAN RECOMB 1 MG INJ ONE (14:11)
[2020-11-15] MEDS ORDERED: EPINEPHRINE INJ 1 MG/10 ML DISP.SYRIN ONE (14:11)
--- NOTE | 2020-11-15 15:12 | PDOC PROGRESS REPORT ---
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 Patient states he has been seeing bright red blood on the toilet paper when he wipes after bowel movements although he admits this has been going on for years and seems to be worse lately. He states he followed with GI outpatient in the past but this was before he moved here from [place] approximately 6 months ago. Patient had a recent admission on 07/2020 for hyponatremia and he was taken off spironolactone. Patient states he has still been taking this medication along with Lasix however. Sodium is lower than previous value at discharge, currently at 126.5. He also has LIEN with creatinine up to 2.41 and he states he has been gaining weight and taking on fluid in his abdomen and legs which is worse than usual. H e previously have a history of alcohol abuse but states he has not drank in quite some time now. General surgery consulted on admission and planning upper and lower endoscopies after patient is transfused to hemoglobin greater than 7. Transfusing 1 unit PRBC on admission followed by IV Lasix. We also have him on sodium chloride tablets. He is highly likely to continue having chronic hyponatremia due to cirrhosis and chronic volume overload and this will be challenging to control with diuretics and other medications." D1 hospital stay.Care assumed today. Patient was seen and examined at bedside. He states that he is very nauseous, but otherwise he feels that his leg swelling has gone down. Denies any chest pain, SOB, abdominal pain. Per surgery recs, plan is for colonoscopy tomorrow. S/p 1 unit PRBC with a repeat hgb of 7, additional unit ordered. D2 hospital stay. Patient was seen and examined at bedside. He is much more awake and alert. No new complains besides diarrhea due to the bowel prep. Ammonia level 91 however he is awake and alert so will just continue to monitor his mental status. Hgb stable at 7.6. He is awaiting EGD and colonoscopy today. Reason For Visit: ACUTE HYPONATREMIA,CHRONIC LOWER GI BLEEDING, Physical Exam Vital Signs: Temp Pulse Resp BP Pulse Ox 97.5 F 55 L 18 116/47 L 99 11/15/20 11:34 11/15/20 11:34 11/15/20 11:34 11/15/20 11:34 11/15/20 11:34 Intake & Output 11/14/20 11/15/20 11/16/20 06:59 06:59 06:59 Intake Total 400 1350 775 Output Total 0 550 Balance 400 800 775 Weight 143.244 kg 141.022 kg Results Laboratory Results: 11/15/20 05:53 11/15/20 08:03 11/13/20 11/14/20 11/14/20 18:30 20:33 20:33 WBC 6.9 RBC 2.50 L Hgb 7.9 L Hct 23.4 L MCV 94 MCH 31.7 MCHC 33.8 RDW 20.8 H Plt Count Seg Neutrophils % 69.4 Sodium Potassium Chloride Carbon Dioxide Anion Gap BUN Creatinine Est GFR ( Amer) Est GFR (Non-Af Amer) Glucose Calcium Phosphorus Magnesium Ammonia 91.0 H Blood Type A POSITIVE Antibody Screen NEGATIVE 11/15/20 11/15/20 11/15/20 05:47 05:53 08:03 WBC 6.8 RBC 2.38 L Hgb 7.6 L Hct 22.4 L MCV 94 MCH 32.0 MCHC 34.0 RDW 20.7 H Plt Count 69 L Seg Neutrophils % 63.6 Sodium Cancelled 129.0 L Potassium Cancelled 5.6 H Chloride Cancelled 99 Carbon Dioxide Cancelled 24 Anion Gap Cancelled 6 BUN Cancelled 62 H Creatinine Cancelled 2.37 H Est GFR ( Amer) Cancelled 34 L Est GFR (Non-Af Amer) Cancelled Glucose Cancelled 117 H Calcium Cancelled 9.0 Phosphorus Cancelled 4.3 Magnesium Cancelled 2.3 Ammonia Blood Type Antibody Screen 11/15/20 12:31 WBC RBC Hgb Hct MCV MCH MCHC RDW Plt Count Seg Neutrophils % Sodium Potassium Chloride Carbon Dioxide Anion Gap BUN Creatinine Est GFR ( Amer) Est GFR (Non-Af Amer) Glucose Calcium Phosphorus Magnesium Ammonia 58.7 H Blood Type Antibody Screen 11/13/20 11/13/20 11/13/20 16:50 16:50 16:50 Creatine Kinase 116 CK-MB (CK-2) 2.38 Troponin I < 0.012 NT-Pro-B Natriuret Pep 1760 H Impressions: Chest X-Ray 11/13/20 16:47 IMPRESSION: Moderate cardiomegaly with mild pulmonary edema. No focal consolidation. Abdomen Ultrasound 11/14/20 00:00 IMPRESSION: Fatty liver without other significant findings. Assessment and Plan - Diagnosis (1) Acute GI bleeding Is this a current diagnosis for this admission?: Yes Plan: Likely acute on chronic lower GI bleeding but patient also at risk for variceal bleeds due to cirrhosis Hemoglobin down to 6.8 >7.0>7.6 - s/p 2 unit PRBC, baseline 8 General surgery consulted: Planning colonoscopy and upper endoscopy IV PPI N.p.o. Anusol Needs follow-up with local GI discharge (2) Acute kidney injury superimposed on CKD Is this a current diagnosis for this admission?: Yes Plan: - Crea 2.3>2.37 baseline about 1.2 Possible also has volume overload due to cirrhosis Pre renal or hepatorenal - will CTM - continue lasix for now due to hypervolemic hyponatremia (3) Acute on chronic blood loss anemia Is this a current diagnosis for this admission?: Yes Plan: Suspect due to chronic hemorrhoidal bleed but also at risk for upper GI bleed due to cirrhosis s/p 2 unit pRBC hgb incerased to 7.6 - will CTM (4) Hemorrhoids Qualifiers: Hemorrhoid type: unspecified Qualified Code(s): K64.9 - Unspecified hemorrhoids Is this a current diagnosis for this admission?: Yes Plan: May benefit from hemorrhoidal banding outpatient (5) Alcoholic cirrhosis of liver Qualifiers: Ascites presence: unspecified Qualified Code(s): K70.30 - Alcoholic cirrhosis of liver without ascites Is this a current diagnosis for this admission?: Yes Plan: Chronic cirrhosis Taken off Aldactone during last admission 07/2020 due to severe hyponatremia however patient states he continues to take this medication outpatient - US RUQ showed fatty liver IV Lasix, transition to p.o. discharge Continue rifaximin and lactulose GI follow-up outpatient (6) Bilateral lower extremity edema Is this a current diagnosis for this admission?: Yes Plan: - 2/2 to cirrhosis - continue lasix (7) Hyperkalemia Is this a current diagnosis for this admission?: Yes Plan: Likely due to acute renal failure - should improve with Lasix (8) Hyponatremia Is this a current diagnosis for this admission?: Yes Plan: - 127>129 Likely due to volume overload in setting of chronic cirrhosis Salt tablets, IV Lasix (9) Thrombocytopenia Is this a current diagnosis for this admission?: Yes Plan: Chronic - Time Time Spent with patient: 15-24 minutes Medications reviewed and adjusted accordingly: Yes Anticipated Discharge Disposition: Home with Home Health Anticipated Discharge Timeframe: within 48 hours
[2020-11-15] MEDS ORDERED: DIPHENHYDRAMINE HCL 50 MG/ML VIAL IV PRN (16:08)
[2020-11-15] MEDS ORDERED: PROMETHAZINE HCL INJ 25 MG/1 ML VIAL IV PRN ×2 (16:08)
[2020-11-15] MEDS ORDERED: MEPERIDINE HCL/PF INJ 25 MG/1 ML DISP.SYRIN IV PRN (16:08)
[2020-11-15] MEDS ORDERED: FENTANYL CITRATE INJ/PF 100 MCG/2 ML AMPUL IV PRN ×3 (16:08)
--- NOTE | 2020-11-15 16:37 | Operative Report ---
Operative Report DATE OF SURGERY: 11/15/20 PREOPERATIVE DIAGNOSIS: Anemia unknown cause, heme positive stools, hematochezi a, cirrhosis of the liver POSTOPERATIVE DIAGNOSIS: Negative EGD; heme positive stools, hematochezia, cirrhosis of the liver; bleeding colonic diverticulum at 65 cm from the anal verge, few scattered sigmoid colon diverticuli OPERATION: EGD, colonoscopy to cecum, epinephrine injection 1.5 cm TISSUE REMOVED OR ALTERED: None COMPLICATIONS: None ESTIMATED BLOOD LOSS: None INTRAOPERATIVE FINDINGS: Negative EGD; bleeding colonic single diverticulum at 65 cm from the anal verge, few scattered sigmoid colon diverticuli PROCEDURE: The procedure was done in surgery, the patient was placed in a lateral decubitus on the surgical bed; IV sedation was provided by the anesthesiologist, the gastroscope was inserted into the mouth, esophagus, stomach, and first, second, and third portion of the duodenum. The preparation was good, and no masses, polyps, strictures, mucosal changes, or ulcerations were noted. The duodenum was [normal]. The scope was then slowly withdrawn into the stomach, retroflexed: the fundus and the GE junction appeared to be within the normal limits. The scope was slowly withdrawn into the esophagus which appeared to be normal and removed from the patient mouth without difficulty. The patient tolerated procedure well. The colonoscopy was performed by placing the patient was placed in the lateral decubitus, The scope was inserted into the rectum and the several segments of the colon up to the cecum. The preparation was good: no masses, polyps, strictures, mucosal changes, were noted. However, single bleeding colonic diverticulum at 65 cm from the anal verge was identified, the mucosa around it was injected with total 1.5 cm of epinephrine with resolution of the bleeding, the few scattered sigmoid colon diverticuli were also identified. At the level of the rectum, the scope was retroflexed and no lesions were identified and no hemorrhoids seen. The scope was then slowly withdrawn from the cecum to rectum for a duration of approximately 7 minutes and extracted from the rectum. The patient tolerated procedure well and transferred to the recovery room in satisfactory conditions.
[2020-11-15] MEDS ORDERED: ONDANSETRON HCL INJ/PF 4 MG/2 ML SDV ONE (16:39)
--- NOTE | 2020-11-15 16:39 | Progress Note ---
Provider Note Provider Note: EGD colonoscopy performed Assessment: EGD negative Colonoscopy demonstrated a single bleeding diverticulum a 65 cm which was injected with 1.5 mL of epinephrine with resolution of the bleeding, the remaining portion of the colon was negative except for a few scattered diverticuli of the sigmoid colon Plan: No additional therapy necessary as bleeding from the diverticulum 65 cm and on the verge will start to spontaneously. Recommended not to use any blood thinners i.e. Lovenox or heparin for the next 48 hours We will sign off. Please call me with questions.
[2020-11-15] MEDS ORDERED: PROPOFOL INJ 200 MG/20 ML VIAL IV ONE (16:59)
[2020-11-15] MEDS: RIFAXIMIN 550 MG TABLET PO SCH (22:00)
[2020-11-16 05:23] LABS: ABSOLUTE BASOPHILS # (AUTO) 0.1 10^3/uL (0.0-0.2); ABSOLUTE EOSINOPHILS # (AUTO) 0.2 10^3/uL (0.0-0.6); ABSOLUTE MONOCYTES (AUTO) 0.9 10^3/uL (0.1-1.4); ABSOLUTE NEUT (AUTO) 3.4 10^3/uL (1.7-8.2); EOSINOPHILS % (AUTO) 4.2 % (0-6); HEMATOCRIT 22.5 % (37.9-51.0); LYMPHOCYTES % (AUTO) 18.1 % (13-45); MEAN CORPUSCULAR HEMOGLOBIN 31.1 pg (27.0-33.4); MEAN CORPUSCULAR HGB CONC 33.2 g/dL (32.0-36.0); MEAN CORPUSCULAR VOLUME 94 fl (80-97); MONOCYTES % (AUTO) 16.7 % (3-13); RED CELL DISTRIBUTION WIDTH 20.2 % (11.5-14.0); TOTAL CELLS COUNTED % (AUTO) 100 %; WHITE BLOOD COUNT 5.7 10^3/uL (4.0-10.5)
[2020-11-16] MEDS: SODIUM CHLORIDE 1 GM TABLET PO SCH ×2 (05:54→17:21)
[2020-11-16 05:57] LABS: ANION GAP 7 (5-19); BLOOD UREA NITROGEN 55 mg/dL (7-20); CALCIUM 8.9 mg/dL (8.4-10.2); CARBON DIOXIDE 23 mmol/L (22-30); CHLORIDE 97 mmol/L (98-107); GLUCOSE 105 mg/dL (75-110); POTASSIUM 5.2 mmol/L (3.6-5.0)
[2020-11-16 06:02] LABS: PLATELET COUNT 55 10^3/uL (150-450)
[2020-11-16 06:04] LABS: HEMOGLOBIN 7.5 g/dL (13.5-17.0)
[2020-11-16] MEDS: FUROSEMIDE INJ/PF 20 MG/2 ML SDV IV SCH ×2 (10:04→17:21)
[2020-11-16] MEDS: PANTOPRAZOLE SODIUM 40 MG VIAL IV SCH (10:04)
[2020-11-16] MEDS: CARVEDILOL 12.5 MG TABLET PO SCH ×2 (10:05→21:23)
[2020-11-16] MEDS: COLCHICINE 0.6 MG TABLET PO SCH (10:05)
[2020-11-16] MEDS: GABAPENTIN 300 MG CAPSULE PO SCH ×3 (10:05→17:21)
[2020-11-16] MEDS: LACTULOSE SYRUP 20 GM/30 ML UDCUP PO SCH (10:05)
[2020-11-16] MEDS: VITAMIN B COMPLEX TABLET PO SCH (10:05)
[2020-11-16] MEDS: HYDROCORTISONE ACETATE 25 MG SUPP.RECT PR SCH ×2 (10:05→17:20)
[2020-11-16] MEDS: LIDOCAINE 5% (700 MG) TRANSDERMAL ADH..PATCH TP SCH (10:08)
[2020-11-16] MEDS: MULTIVITAMIN TABLET PO SCH (10:09)
--- NOTE | 2020-11-16 17:49 | PDOC PROGRESS REPORT ---
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 Patient states he has been seeing bright red blood on the toilet paper when he wipes after bowel movements although he admits this has been going on for years and seems to be worse lately. He states he followed with GI outpatient in the past but this was before he moved here from [place] approximately 6 months ago. Patient had a recent admission on 07/2020 for hyponatremia and he was taken off spironolactone. Patient states he has still been taking this medication along with Lasix however. Sodium is lower than previous value at discharge, currently at 126.5. He also has LIEN with creatinine up to 2.41 and he states he has been gaining weight and taking on fluid in his abdomen and legs which is worse than usual. H e previously have a history of alcohol abuse but states he has not drank in quite some time now. General surgery consulted on admission and planning upper and lower endoscopies after patient is transfused to hemoglobin greater than 7. Transfusing 1 unit PRBC on admission followed by IV Lasix. We also have him on sodium chloride tablets. He is highly likely to continue having chronic hyponatremia due to cirrhosis and chronic volume overload and this will be challenging to control with diuretics and other medications." D1 hospital stay.Care assumed today. Patient was seen and examined at bedside. He states that he is very nauseous, but otherwise he feels that his leg swelling has gone down. Denies any chest pain, SOB, abdominal pain. Per surgery recs, plan is for colonoscopy tomorrow. S/p 1 unit PRBC with a repeat hgb of 7, additional unit ordered. D2 hospital stay. Patient was seen and examined at bedside. He is much more awake and alert. No new complains besides diarrhea due to the bowel prep. Ammonia level 91 however he is awake and alert so will just continue to monitor his mental status. Hgb stable at 7.6. He is awaiting EGD and colonoscopy today. D3 Hospital stay 11/16/20 Patient was seen and examined at bedside. No new complains, still with minimal black stools likely a residual from the GI bleed. VS otherwise stable, no new complains. Possible discharge tomorrow. Reason For Visit: ACUTE HYPONATREMIA,CHRONIC LOWER GI BLEEDING, Physical Exam Vital Signs: Temp Pulse Resp BP Pulse Ox 98.1 F 69 16 124/55 L 95 11/16/20 15:50 11/16/20 15:50 11/16/20 15:50 11/16/20 15:50 11/16/20 15:50 Intake & Output 11/15/20 11/16/20 11/17/20 06:59 06:59 06:59 Intake Total 1350 3575 610 Output Total 550 0 100 Balance 800 3575 510 Weight 141.022 kg 144.7 kg General appearance: PRESENT: no acute distress, cooperative Head exam: PRESENT: atraumatic, normocephalic Eye exam: PRESENT: other - legally blind one eye Mouth exam: PRESENT: moist Neck exam: PRESENT: full ROM Respiratory exam: PRESENT: clear to auscultation lul, symmetrical, unlabored Cardiovascular exam: PRESENT: RRR, +S1, +S2 GI/Abdominal exam: PRESENT: normal bowel sounds, soft. ABSENT: rebound, tenderness Extremities exam: PRESENT: full ROM, +2 edema Musculoskeletal exam: PRESENT: full ROM Neurological exam: PRESENT: alert, awake, oriented to person, oriented to place, oriented to time, oriented to situation Psychiatric exam: PRESENT: normal mood Skin exam: PRESENT: normal color Results Laboratory Results: 11/16/20 05:08 11/16/20 05:08 11/16/20 11/16/20 05:08 05:08 WBC 5.7 RBC 2.40 L Hgb 7.5 L Hct 22.5 L MCV 94 MCH 31.1 MCHC 33.2 RDW 20.2 H Plt Count 55 L Seg Neutrophils % 60.0 Sodium 127.2 L Potassium 5.2 H Chloride 97 L Carbon Dioxide 23 Anion Gap 7 BUN 55 H Creatinine 2.21 H Est GFR ( Amer) 37 L Glucose 105 Calcium 8.9 11/13/20 11/13/20 11/13/20 16:50 16:50 16:50 Creatine Kinase 116 CK-MB (CK-2) 2.38 Troponin I < 0.012 NT-Pro-B Natriuret Pep 1760 H Impressions: Chest X-Ray 11/13/20 16:47 IMPRESSION: Moderate cardiomegaly with mild pulmonary edema. No focal consolidation. Abdomen Ultrasound 11/14/20 00:00 IMPRESSION: Fatty liver without other significant findings. Assessment and Plan - Diagnosis (1) Acute GI bleeding Is this a current diagnosis for this admission?: Yes Plan: Likely acute on chronic lower GI bleeding Hemoglobin down to 6.8 >7.0>7.6 - s/p 2 unit PRBC, baseline 8 General surgery consulted: s/p colonoscopy bleeding colonic diverticulum at 65 cm from the anal verge few scattered sigmoid colon diverticuli epinephrine injection was done. NO carices oral PPI - carb meal pattern Anusol Needs follow-up with local GI discharge (2) Acute kidney injury superimposed on CKD Is this a current diagnosis for this admission?: Yes Plan: - Crea 2.3>2.37>2.21baseline about 1.2 Possible also has volume overload due to cirrhosis Pre renal or hepatorenal - continue lasix for now due to hypervolemic hyponatremia -will CTM (3) Acute on chronic blood loss anemia Is this a current diagnosis for this admission?: Yes Plan: Suspect due to chronic hemorrhoidal bleed but also at risk for upper GI bleed due to cirrhosis s/p 2 unit pRBC hgb incerased to 7.6 - s/p colonoscopy - will CTM (4) Hemorrhoids Qualifiers: Hemorrhoid type: unspecified Qualified Code(s): K64.9 - Unspecified hemorrhoids Is this a current diagnosis for this admission?: Yes Plan: May benefit from hemorrhoidal banding outpatient (5) Alcoholic cirrhosis of liver Qualifiers: Ascites presence: unspecified Qualified Code(s): K70.30 - Alcoholic cirrhosis of liver without ascites Is this a current diagnosis for this admission?: Yes Plan: Chronic cirrhosis Taken off Aldactone during last admission 07/2020 due to severe hyponatremia however patient states he continues to take this medication outpatient - US RUQ showed fatty liver IV Lasix, transition to p.o. discharge Continue rifaximin and lactulose GI follow-up outpatient (6) Bilateral lower extremity edema Is this a current diagnosis for this admission?: Yes Plan: - 2/2 to cirrhosis - continue lasix (7) Hyperkalemia Is this a current diagnosis for this admission?: Yes Plan: Likely due to acute renal failure - should improve with Lasix (8) Hyponatremia Is this a current diagnosis for this admission?: Yes Plan: - 127>129>127 Likely due to volume overload in setting of chronic cirrhosis Salt tablets, IV Lasix (9) Thrombocytopenia Is this a current diagnosis for this admission?: Yes Plan: 76>69>55 Chronic - Time Time Spent with patient: 25-34 minutes Medications reviewed and adjusted accordingly: Yes Anticipated Discharge Disposition: Home, Self Care Anticipated Discharge Timeframe: within 24 hours
[2020-11-16] MEDS: RIFAXIMIN 550 MG TABLET PO SCH (21:23)
[2020-11-17] MEDS: PANTOPRAZOLE SODIUM 40 MG TABLET.DR PO SCH (05:53)
[2020-11-17] MEDS: SODIUM CHLORIDE 1 GM TABLET PO SCH ×2 (05:53→17:50)
[2020-11-17 06:50] LABS: ABSOLUTE EOSINOPHILS # (AUTO) 0.1 10^3/uL (0.0-0.6); ABSOLUTE LYMPHOCYTES (AUTO) 0.8 10^3/uL (0.5-4.7); ABSOLUTE MONOCYTES (AUTO) 0.8 10^3/uL (0.1-1.4); ABSOLUTE NEUT (AUTO) 3.1 10^3/uL (1.7-8.2); BASOPHILS % (AUTO) 0.9 % (0-2); EOSINOPHILS % (AUTO) 2.9 % (0-6); HEMATOCRIT 22.4 % (37.9-51.0); LYMPHOCYTES % (AUTO) 16.9 % (13-45); MEAN CORPUSCULAR HEMOGLOBIN 31.5 pg (27.0-33.4); MEAN CORPUSCULAR HGB CONC 33.5 g/dL (32.0-36.0); MEAN CORPUSCULAR VOLUME 94 fl (80-97); MONOCYTES % (AUTO) 16.1 % (3-13); RED BLOOD COUNT 2.38 10^6/uL (4.35-5.55); RED CELL DISTRIBUTION WIDTH 19.8 % (11.5-14.0); SEGMENTED NEUTROPHILS % (AUTO) 63.2 % (42-78); TOTAL CELLS COUNTED % (AUTO) 100 %; WHITE BLOOD COUNT 4.9 10^3/uL (4.0-10.5)
[2020-11-17 07:34] LABS: PLATELET COUNT 69 10^3/uL (150-450)
[2020-11-17 08:02] LABS: HEMOGLOBIN 7.5 g/dL (13.5-17.0)
[2020-11-17] MEDS ORDERED: NORMAL SALINE 250 ML IV PRN ×2 (08:41)
[2020-11-17] MEDS: LACTULOSE SYRUP 20 GM/30 ML UDCUP PO SCH (10:05)
[2020-11-17] MEDS: LIDOCAINE 5% (700 MG) TRANSDERMAL ADH..PATCH TP SCH (10:05)
[2020-11-17] MEDS: HYDROCORTISONE ACETATE 25 MG SUPP.RECT PR SCH ×2 (10:05→17:44)
[2020-11-17] MEDS: FUROSEMIDE INJ/PF 20 MG/2 ML SDV IV SCH ×2 (10:11→17:50)
[2020-11-17] MEDS: CARVEDILOL 12.5 MG TABLET PO SCH ×2 (10:12→21:54)
[2020-11-17] MEDS: MULTIVITAMIN TABLET PO SCH (10:12)
[2020-11-17] MEDS: COLCHICINE 0.6 MG TABLET PO SCH (10:12)
[2020-11-17] MEDS: VITAMIN B COMPLEX TABLET PO SCH (10:12)
[2020-11-17] MEDS: GABAPENTIN 300 MG CAPSULE PO SCH ×3 (10:12→17:50)
[2020-11-17] MEDS ORDERED: FUROSEMIDE INJ/PF 20 MG/2 ML SDV ONE (17:48)
[2020-11-17] MEDS ORDERED: FUROSEMIDE INJ/PF 20 MG/2 ML SDV IV ONE (18:00)
[2020-11-17 19:03] LABS: HEMATOCRIT 23.4 % (37.9-51.0); MEAN CORPUSCULAR HEMOGLOBIN 31.3 pg (27.0-33.4); MEAN CORPUSCULAR VOLUME 92 fl (80-97); RED BLOOD COUNT 2.55 10^6/uL (4.35-5.55); RED CELL DISTRIBUTION WIDTH 20.8 % (11.5-14.0); WHITE BLOOD COUNT 5.5 10^3/uL (4.0-10.5)
[2020-11-17 19:41] LABS: PLATELET COUNT 63 10^3/uL (150-450)
[2020-11-17 19:45] LABS: ABSOLUTE LYMPHOCYTES# (MANUAL) 0.9 10^3/uL (0.5-4.7); ABSOLUTE MONOCYTES # (MANUAL) 0.9 10^3/uL (0.1-1.4); BASOPHILS % (MANUAL) 1 % (0-2); EOSINOPHILS % (MANUAL) 1 % (0-6); LYMPHOCYTES % (MANUAL) 16 % (13-45); MONOCYTES % (MANUAL) 17 % (3-13); SEGMENTED NEUTROPHILS % (MAN) 65 % (42-78); TOTAL CELLS COUNTED 100
[2020-11-17] MEDS ORDERED: LACTULOSE SYRUP 20 GM/30 ML UDCUP PR ONE (19:45)
[2020-11-17 19:48] LABS: ANISOCYTOSIS 2+; PLATELET COMMENT DECREASED; POLYCHROMASIA SLIGHT; SCHISTOCYTES SLIGHT; TARGET CELLS SLIGHT
--- NOTE | 2020-11-17 20:45 | PDOC PROGRESS REPORT ---
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 Patient states he has been seeing bright red blood on the toilet paper when he wipes after bowel movements although he admits this has been going on for years and seems to be worse lately. He states he followed with GI outpatient in the past but this was before he moved here from [place] approximately 6 months ago. Patient had a recent admission on 07/2020 for hyponatremia and he was taken off spironolactone. Patient states he has still been taking this medication along with Lasix however. Sodium is lower than previous value at discharge, currently at 126.5. He also has LIEN with creatinine up to 2.41 and he states he has been gaining weight and taking on fluid in his abdomen and legs which is worse than usual. H e previously have a history of alcohol abuse but states he has not drank in quite some time now. General surgery consulted on admission and planning upper and lower endoscopies after patient is transfused to hemoglobin greater than 7. Transfusing 1 unit PRBC on admission followed by IV Lasix. We also have him on sodium chloride tablets. He is highly likely to continue having chronic hyponatremia due to cirrhosis and chronic volume overload and this will be challenging to control with diuretics and other medications." D1 hospital stay.Care assumed today. Patient was seen and examined at bedside. He states that he is very nauseous, but otherwise he feels that his leg swelling has gone down. Denies any chest pain, SOB, abdominal pain. Per surgery recs, plan is for colonoscopy tomorrow. S/p 1 unit PRBC with a repeat hgb of 7, additional unit ordered. D2 hospital stay. Patient was seen and examined at bedside. He is much more awake and alert. No new complains besides diarrhea due to the bowel prep. Ammonia level 91 however he is awake and alert so will just continue to monitor his mental status. Hgb stable at 7.6. He is awaiting EGD and colonoscopy today. D3 Hospital stay 11/16/20 Patient was seen and examined at bedside. No new complains, still with minimal black stools likely a residual from the GI bleed. VS otherwise stable, no new complains. Possible discharge tomorrow. D4 hospital stay 11/17/20. Patient seen and examined. Was suppose to be discharged but noted to be more confused and apparently has been refusing lactulose. Hgb 8.0 post 1 unit transfusion. Discharge cancelled, lactulose enema ordered. Reason For Visit: ACUTE HYPONATREMIA,CHRONIC LOWER GI BLEEDING, Physical Exam Vital Signs: Temp Pulse Resp BP Pulse Ox 98.1 F 66 22 H 116/44 L 100 11/17/20 15:30 11/17/20 15:30 11/17/20 15:30 11/17/20 15:30 11/17/20 15:30 Intake & Output 11/16/20 11/17/20 11/18/20 06:59 06:59 06:59 Intake Total 3575 1260 1055 Output Total 0 1300 2000 Balance 3575 -40 -945 Weight 144.7 kg 145 kg 144.3 kg General appearance: PRESENT: no acute distress, morbidly obese Head exam: PRESENT: atraumatic, normocephalic Mouth exam: PRESENT: moist Neck exam: PRESENT: full ROM Respiratory exam: PRESENT: clear to auscultation lul, symmetrical, unlabored Cardiovascular exam: PRESENT: RRR, +S1, +S2 Pulses: PRESENT: +2 pedal pulses bilateral GI/Abdominal exam: PRESENT: normal bowel sounds, soft. ABSENT: rebound, tenderness Extremities exam: PRESENT: full ROM Musculoskeletal exam: PRESENT: full ROM Neurological exam: PRESENT: alert, awake, oriented to person, oriented to place, oriented to time, oriented to situation Psychiatric exam: PRESENT: normal mood Skin exam: PRESENT: normal color Results Laboratory Results: 11/17/20 18:38 11/16/20 05:08 11/17/20 11/17/20 11/17/20 06:08 09:39 18:38 WBC 4.9 5.5 RBC 2.38 L 2.55 L Hgb 7.5 L 8.0 L Hct 22.4 L 23.4 L MCV 94 92 MCH 31.5 31.3 MCHC 33.5 34.0 RDW 19.8 H 20.8 H Plt Count 69 L 63 L Seg Neutrophils % 63.2 Not Reportable Blood Type A POSITIVE Antibody Screen NEGATIVE 11/13/20 11/13/20 11/13/20 16:50 16:50 16:50 Creatine Kinase 116 CK-MB (CK-2) 2.38 Troponin I < 0.012 NT-Pro-B Natriuret Pep 1760 H Impressions: Chest X-Ray 11/13/20 16:47 IMPRESSION: Moderate cardiomegaly with mild pulmonary edema. No focal consolidation. Abdomen Ultrasound 11/14/20 00:00 IMPRESSION: Fatty liver without other significant findings. Assessment and Plan - Diagnosis (1) Acute metabolic encephalopathy Is this a current diagnosis for this admission?: Yes Plan: Recheck ammonia -Continue lactulose, rifaximin (2) Acute GI bleeding Is this a current diagnosis for this admission?: Yes Plan: Likely acute on chronic lower GI bleeding Hemoglobin down to 6.8 >7.0>7.6 - s/p 3 unit PRBC, baseline 8 General surgery consulted: s/p colonoscopy bleeding colonic diverticulum at 65 cm from the anal verge few scattered sigmoid colon diverticuli epinephrine injection was done. NO carices oral PPI - carb meal pattern Anusol Needs follow-up with local GI discharge (3) Acute kidney injury superimposed on CKD Is this a current diagnosis for this admission?: Yes Plan: - Crea 2.3>2.37>2.21baseline about 1.2 Possible also has volume overload due to cirrhosis Pre renal or hepatorenal - continue lasix for now due to hypervolemic hyponatremia -will CTM (4) Acute on chronic blood loss anemia Is this a current diagnosis for this admission?: Yes Plan: Suspect due to chronic hemorrhoidal bleed but also at risk for upper GI bleed due to cirrhosis s/p 2 unit pRBC hgb incerased to 7.6 - s/p colonoscopy - will CTM (5) Hemorrhoids Qualifiers: Hemorrhoid type: unspecified Qualified Code(s): K64.9 - Unspecified hemorrhoids Is this a current diagnosis for this admission?: Yes Plan: May benefit from hemorrhoidal banding outpatient (6) Alcoholic cirrhosis of liver Qualifiers: Ascites presence: unspecified Qualified Code(s): K70.30 - Alcoholic cirrhosis of liver without ascites Is this a current diagnosis for this admission?: Yes Plan: Chronic cirrhosis Taken off Aldactone during last admission 07/2020 due to severe hyponatremia however patient states he continues to take this medication outpatient - US RUQ showed fatty liver IV Lasix, transition to p.o. discharge Continue rifaximin and lactulose GI follow-up outpatient (7) Bilateral lower extremity edema Is this a current diagnosis for this admission?: Yes Plan: - 2/2 to cirrhosis - continue lasix (8) Hyperkalemia Is this a current diagnosis for this admission?: Yes Plan: Likely due to acute renal failure - should improve with Lasix (9) Hyponatremia Is this a current diagnosis for this admission?: Yes Plan: - 127>129>127 Likely due to volume overload in setting of chronic cirrhosis Salt tablets, IV Lasix (10) Thrombocytopenia Is this a current diagnosis for this admission?: Yes Plan: 76>69>55 Chronic - Time Time Spent with patient: 25-34 minutes Medications reviewed and adjusted accordingly: Yes Anticipated Discharge Disposition: Home with Home Health Anticipated Discharge Timeframe: tbd
[2020-11-17] MEDS ORDERED: LACTULOSE SYRUP 20 GM/30 ML UDCUP PO ONE (21:00)
[2020-11-17] MEDS: RIFAXIMIN 550 MG TABLET PO SCH (21:55)
[2020-11-18] MEDS: SODIUM CHLORIDE 1 GM TABLET PO SCH ×2 (06:34→17:22)
[2020-11-18] MEDS: PANTOPRAZOLE SODIUM 40 MG TABLET.DR PO SCH (06:34)
[2020-11-18 06:38] LABS: ARTERIAL BLOOD H2CO3 1.08 mmol/L (1.05-1.35); ARTERIAL BLOOD HCO3 24.8 mmol/L (20-24); ARTERIAL BLOOD O2 SATURATION 95.5 % (94-98); ARTERIAL BLOOD PH 7.46 (7.35-7.45); ARTERIAL BLOOD PO2 73.3 mmHg (80-100); ARTERIAL BLOOD TOTAL CO2 25.9 mmol/L (23-27)
[2020-11-18 06:39] LABS: ARTERIAL BLOOD FIO2 21%
[2020-11-18] MEDS: FUROSEMIDE INJ/PF 20 MG/2 ML SDV IV SCH (09:55)
[2020-11-18] MEDS: MULTIVITAMIN TABLET PO SCH (09:56)
[2020-11-18] MEDS: CARVEDILOL 12.5 MG TABLET PO SCH ×2 (09:56→22:22)
[2020-11-18] MEDS: GABAPENTIN 300 MG CAPSULE PO SCH ×3 (09:56→17:22)
[2020-11-18] MEDS: COLCHICINE 0.6 MG TABLET PO SCH (09:56)
[2020-11-18] MEDS: VITAMIN B COMPLEX TABLET PO SCH (09:57)
[2020-11-18] MEDS: HYDROCORTISONE ACETATE 25 MG SUPP.RECT PR SCH ×2 (10:02→17:49)
[2020-11-18] MEDS: LIDOCAINE 5% (700 MG) TRANSDERMAL ADH..PATCH TP SCH (10:03)
[2020-11-18] MEDS: LACTULOSE SYRUP 20 GM/30 ML UDCUP PO SCH ×2 (10:05→17:23)
[2020-11-18 10:18] LABS: HEMATOCRIT 24.3 % (37.9-51.0); HEMOGLOBIN 8.2 g/dL (13.5-17.0); MEAN CORPUSCULAR HEMOGLOBIN 31.4 pg (27.0-33.4); MEAN CORPUSCULAR HGB CONC 33.8 g/dL (32.0-36.0); MEAN CORPUSCULAR VOLUME 93 fl (80-97); RED BLOOD COUNT 2.61 10^6/uL (4.35-5.55); RED CELL DISTRIBUTION WIDTH 21.3 % (11.5-14.0); WHITE BLOOD COUNT 4.7 10^3/uL (4.0-10.5)
[2020-11-18 10:34] LABS: ALBUMIN 2.9 g/dL (3.5-5.0); ALKALINE PHOSPHATASE 156 U/L (38-126); ANION GAP 6 (5-19); ASPARTATE AMINO TRANSFERASE 60 U/L (17-59); BILIRUBIN,TOTAL 2.5 mg/dL (0.2-1.3); BLOOD UREA NITROGEN 43 mg/dL (7-20); CARBON DIOXIDE 24 mmol/L (22-30); CHLORIDE 99 mmol/L (98-107); GLUCOSE 124 mg/dL (75-110); POTASSIUM 4.9 mmol/L (3.6-5.0); TOTAL PROTEIN 6.2 g/dL (6.3-8.2)
[2020-11-18 10:38] LABS: PLATELET COUNT 61 10^3/uL (150-450)
[2020-11-18 10:41] LABS: ABSOLUTE MONOCYTES # (MANUAL) 0.9 10^3/uL (0.1-1.4); BASOPHILS % (MANUAL) 0 % (0-2); EOSINOPHILS % (MANUAL) 5 % (0-6); LYMPHOCYTES % (MANUAL) 19 % (13-45); MONOCYTES % (MANUAL) 20 % (3-13); SEGMENTED NEUTROPHILS % (MAN) 53 % (42-78); TOTAL CELLS COUNTED 100
[2020-11-18 10:42] LABS: ANISOCYTOSIS 3+; PLATELET COMMENT DECREASED; POLYCHROMASIA 1+
[2020-11-18 10:44] LABS: OVALOCYTES 1+; POIKILOCYTOSIS 1+; TEAR DROP CELLS SLIGHT
[2020-11-18 10:45] LABS: TARGET CELLS SLIGHT
[2020-11-18 10:46] LABS: SCHISTOCYTES SLIGHT
--- NOTE | 2020-11-18 15:56 | PDOC PROGRESS REPORT ---
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 Patient states he has been seeing bright red blood on the toilet paper when he wipes after bowel movements although he admits this has been going on for years and seems to be worse lately. He states he followed with GI outpatient in the past but this was before he moved here from [place] approximately 6 months ago. Patient had a recent admission on 07/2020 for hyponatremia and he was taken off spironolactone. Patient states he has still been taking this medication along with Lasix however. Sodium is lower than previous value at discharge, currently at 126.5. He also has LIEN with creatinine up to 2.41 and he states he has been gaining weight and taking on fluid in his abdomen and legs which is worse than usual. H e previously have a history of alcohol abuse but states he has not drank in quite some time now. General surgery consulted on admission and planning upper and lower endoscopies after patient is transfused to hemoglobin greater than 7. Transfusing 1 unit PRBC on admission followed by IV Lasix. We also have him on sodium chloride tablets. He is highly likely to continue having chronic hyponatremia due to cirrhosis and chronic volume overload and this will be challenging to control with diuretics and other medications." D1 hospital stay.Care assumed today. Patient was seen and examined at bedside. He states that he is very nauseous, but otherwise he feels that his leg swelling has gone down. Denies any chest pain, SOB, abdominal pain. Per surgery recs, plan is for colonoscopy tomorrow. S/p 1 unit PRBC with a repeat hgb of 7, additional unit ordered. D2 hospital stay. Patient was seen and examined at bedside. He is much more awake and alert. No new complains besides diarrhea due to the bowel prep. Ammonia level 91 however he is awake and alert so will just continue to monitor his mental status. Hgb stable at 7.6. He is awaiting EGD and colonoscopy today. D3 Hospital stay 11/16/20 Patient was seen and examined at bedside. No new complains, still with minimal black stools likely a residual from the GI bleed. VS otherwise stable, no new complains. Possible discharge tomorrow. D4 hospital stay 11/17/20. Patient seen and examined. Was suppose to be discharged but noted to be more confused and apparently has been refusing lactulose. Hgb 8.0 post 1 unit transfusion. Discharge cancelled, lactulose enema ordered. D5 hospital stay 11/18/20 Patient was seen and examined at bedside. Still a bit confused but overall better from yesterday. He had a BM yesterday after the enema. Nurse was also concerned that his legs were red and erythematous. I inspected his legs again and they look no different than when he came in, he has chronic venous stasis dermatitis. Although his legs seems to have gotten a bit more swollen so I increased his lasix to 40 IV BID. will need to closely watch his creatinine with this increased dose. Reason For Visit: ACUTE HYPONATREMIA,CHRONIC LOWER GI BLEEDING, Physical Exam Vital Signs: Temp Pulse Resp BP Pulse Ox 97.8 F 63 20 127/60 H 98 11/18/20 12:50 11/18/20 12:50 11/18/20 12:50 11/18/20 12:50 11/18/20 12:50 Intake & Output 11/17/20 11/18/20 11/19/20 06:59 06:59 06:59 Intake Total 1260 1055 120 Output Total 1300 2400 Balance -40 -1345 120 Weight 145 kg 142.6 kg 142.6 kg General appearance: PRESENT: no acute distress, cooperative, hard of hearing, morbidly obese Head exam: PRESENT: atraumatic Ear exam: PRESENT: drainage, normal external ear exam Mouth exam: PRESENT: moist Neck exam: PRESENT: full ROM Respiratory exam: PRESENT: clear to auscultation lul, symmetrical, unlabored Cardiovascular exam: PRESENT: RRR, +S1, +S2 Pulses: PRESENT: +2 pedal pulses bilateral GI/Abdominal exam: PRESENT: normal bowel sounds, soft. ABSENT: rebound, tenderness Extremities exam: PRESENT: full ROM Musculoskeletal exam: PRESENT: full ROM Neurological exam: PRESENT: alert, awake, oriented to time. ABSENT: oriented to person, oriented to place Psychiatric exam: PRESENT: normal mood Results Laboratory Results: 11/18/20 09:52 11/18/20 09:52 11/17/20 11/17/20 11/18/20 18:38 20:41 05:55 WBC 5.5 RBC 2.55 L Hgb 8.0 L Hct 23.4 L MCV 92 MCH 31.3 MCHC 34.0 RDW 20.8 H Plt Count 63 L Seg Neutrophils % Not Reportable Carbonic Acid 1.08 HCO3/H2CO3 Ratio 22:1 ABG pH 7.46 H ABG pCO2 36.0 ABG pO2 73.3 L ABG HCO3 24.8 H ABG O2 Saturation 95.5 ABG Base Excess 1.0 FiO2 21% Sodium Potassium Chloride Carbon Dioxide Anion Gap BUN Creatinine Est GFR ( Amer) Glucose Calcium Total Bilirubin AST Alkaline Phosphatase Ammonia 174.4 H Total Protein Albumin 11/18/20 11/18/20 11/18/20 09:52 09:52 09:52 WBC 4.7 RBC 2.61 L Hgb 8.2 L Hct 24.3 L MCV 93 MCH 31.4 MCHC 33.8 RDW 21.3 H Plt Count 61 L Seg Neutrophils % Not Reportable Carbonic Acid HCO3/H2CO3 Ratio ABG pH ABG pCO2 ABG pO2 ABG HCO3 ABG O2 Saturation ABG Base Excess FiO2 Sodium 129.1 L Potassium 4.9 Chloride 99 Carbon Dioxide 24 Anion Gap 6 BUN 43 H Creatinine 2.19 H Est GFR ( Amer) 37 L Glucose 124 H Calcium 9.0 Total Bilirubin 2.5 H AST 60 H Alkaline Phosphatase 156 H Ammonia 89.0 H Total Protein 6.2 L Albumin 2.9 L 11/13/20 11/13/20 11/13/20 16:50 16:50 16:50 Creatine Kinase 116 CK-MB (CK-2) 2.38 Troponin I < 0.012 NT-Pro-B Natriuret Pep 1760 H Impressions: Chest X-Ray 11/13/20 16:47 IMPRESSION: Moderate cardiomegaly with mild pulmonary edema. No focal consolidation. Abdomen Ultrasound 11/14/20 00:00 IMPRESSION: Fatty liver without other significant findings. Assessment and Plan - Diagnosis (1) Acute metabolic encephalopathy Is this a current diagnosis for this admission?: Yes Plan: ammonia 174 patient apparently ahs been refusing his lactulose the past 2 days - lactulose dose increased to BID to titrate BM 2-3/day -Continue lactulose, rifaximin (2) Acute GI bleeding Is this a current diagnosis for this admission?: Yes Plan: Likely acute on chronic lower GI bleeding Hemoglobin down to 6.8 >7.0>7.6 - s/p 3 unit PRBC, baseline 8 General surgery consulted: s/p colonoscopy bleeding colonic diverticulum at 65 cm from the anal verge few scattered sigmoid colon diverticuli epinephrine injection was done. NO carices oral PPI Anusol Needs follow-up with local GI discharge (3) Acute kidney injury superimposed on CKD Is this a current diagnosis for this admission?: Yes Plan: - Crea 2.3>2.37>2.21 baseline about 1.2 Possible also has volume overload due to cirrhosis Pre renal or hepatorenal - continue lasix for now due to hypervolemic hyponatremia -will CTM (4) Acute on chronic blood loss anemia Is this a current diagnosis for this admission?: Yes Plan: Suspect due to chronic hemorrhoidal bleed but also at risk for upper GI bleed due to cirrhosis s/p 3 unit pRBC hgb increased to 7.6>8.2 - s/p colonoscopy - will CTM (5) Hemorrhoids Qualifiers: Hemorrhoid type: unspecified Qualified Code(s): K64.9 - Unspecified hemorrhoids Is this a current diagnosis for this admission?: Yes Plan: May benefit from hemorrhoidal banding outpatient (6) Alcoholic cirrhosis of liver Qualifiers: Ascites presence: unspecified Qualified Code(s): K70.30 - Alcoholic cirrhosis of liver without ascites Is this a current diagnosis for this admission?: Yes Plan: Chronic cirrhosis Taken off Aldactone during last admission 07/2020 due to severe hyponatremia however patient states he continues to take this medication outpatient - US RUQ showed fatty liver IV Lasix increased to 40 IV BID please monitor crea, transition to p.o. discharge Continue rifaximin and lactulose GI follow-up outpatient (7) Bilateral lower extremity edema Is this a current diagnosis for this admission?: Yes Plan: - 2/2 to cirrhosis - continue lasix (8) Hyperkalemia Is this a current diagnosis for this admission?: Yes Plan: Likely due to acute renal failure - should improve with Lasix (9) Hyponatremia Is this a current diagnosis for this admission?: Yes Plan: - 127>129>127 Likely due to volume overload in setting of chronic cirrhosis Salt tablets, IV Lasix (10) Thrombocytopenia Is this a current diagnosis for this admission?: Yes Plan: 76>69>55 Chronic - Time Time Spent with patient: 25-34 minutes Medications reviewed and adjusted accordingly: Yes Anticipated Discharge Disposition: Home with Home Health Anticipated Discharge Timeframe: tbd
[2020-11-18] MEDS: FUROSEMIDE INJ/PF 40 MG/4 ML SDV IV SCH (17:23)
[2020-11-18] MEDS ORDERED: FUROSEMIDE INJ/PF 20 MG/2 ML SDV IV SCH (18:00)
[2020-11-18] MEDS: RIFAXIMIN 550 MG TABLET PO SCH (22:22)
[2020-11-19] MEDS: PANTOPRAZOLE SODIUM 40 MG TABLET.DR PO SCH (06:30)
[2020-11-19] MEDS: SODIUM CHLORIDE 1 GM TABLET PO SCH (06:30)
[2020-11-19] MEDS: MULTIVITAMIN TABLET PO SCH (09:57)
[2020-11-19] MEDS: CARVEDILOL 12.5 MG TABLET PO SCH ×2 (09:57→22:05)
[2020-11-19] MEDS: GABAPENTIN 300 MG CAPSULE PO SCH ×3 (09:58→18:46)
[2020-11-19] MEDS: COLCHICINE 0.6 MG TABLET PO SCH (09:58)
[2020-11-19] MEDS: VITAMIN B COMPLEX TABLET PO SCH (09:59)
[2020-11-19] MEDS: LACTULOSE SYRUP 20 GM/30 ML UDCUP PO SCH ×3 (09:59→22:05)
[2020-11-19] MEDS: FUROSEMIDE INJ/PF 40 MG/4 ML SDV IV SCH ×2 (10:01→20:00)
[2020-11-19] MEDS: HYDROCORTISONE ACETATE 25 MG SUPP.RECT PR SCH ×2 (10:02→18:46)
[2020-11-19] MEDS: LIDOCAINE 5% (700 MG) TRANSDERMAL ADH..PATCH TP SCH (10:02)
[2020-11-19 11:52] LABS: ALBUMIN 2.9 g/dL (3.5-5.0); ALKALINE PHOSPHATASE 145 U/L (38-126); ANION GAP 7 (5-19); ASPARTATE AMINO TRANSFERASE 82 U/L (17-59); BILIRUBIN,DIRECT 0.8 mg/dL (0.0-0.4); BILIRUBIN,TOTAL 1.8 mg/dL (0.2-1.3); BLOOD UREA NITROGEN 37 mg/dL (7-20); CALCIUM 9.1 mg/dL (8.4-10.2); CARBON DIOXIDE 27 mmol/L (22-30); CHLORIDE 99 mmol/L (98-107); GLUCOSE 167 mg/dL (75-110); POTASSIUM 4.5 mmol/L (3.6-5.0); TOTAL PROTEIN 6.3 g/dL (6.3-8.2)
[2020-11-19] MEDS ORDERED: RIFAXIMIN 550 MG TABLET PO ONE (16:00)
--- NOTE | 2020-11-19 19:23 | PDOC PROGRESS REPORT ---
Subjective Date:: 11/19/20 Subjective:: He denies any shortness of breath today. Denies any chest pain or pains anywher e else. Had not had any bowel movements by earlier this afternoon. Still seemed confused Reason For Visit: ACUTE HYPONATREMIA,CHRONIC LOWER GI BLEEDING, Physical Exam Vital Signs: Temp Pulse Resp BP Pulse Ox 98.2 F 69 21 H 136/57 H 96 11/19/20 12:15 11/19/20 12:15 11/19/20 12:15 11/19/20 12:15 11/19/20 12:15 Intake & Output 11/18/20 11/19/20 11/20/20 06:59 06:59 06:59 Intake Total 1055 640 130 Output Total 2400 Balance -1345 640 130 Weight 142.6 kg 138.1 kg General appearance: PRESENT: no acute distress, cooperative, morbidly obese Respiratory exam: PRESENT: clear to auscultation lul, symmetrical, unlabored. ABSENT: tachypnea, wheezes Cardiovascular exam: PRESENT: RRR, +S1, +S2. ABSENT: tachycardia GI/Abdominal exam: PRESENT: soft. ABSENT: rebound, rigid, tenderness Neurological exam: PRESENT: alert, awake, oriented to person, oriented to place. ABSENT: oriented to time, oriented to situation Results Laboratory Results: 11/18/20 09:52 11/19/20 11:25 11/19/20 11/19/20 11:25 11:25 Sodium 133.1 L Potassium 4.5 Chloride 99 Carbon Dioxide 27 Anion Gap 7 BUN 37 H Creatinine 1.99 H Est GFR ( Amer) 42 L Glucose 167 H Calcium 9.1 Total Bilirubin 1.8 H AST 82 H Alkaline Phosphatase 145 H Ammonia 215.6 H Total Protein 6.3 Albumin 2.9 L 11/13/20 11/13/20 11/13/20 16:50 16:50 16:50 Creatine Kinase 116 CK-MB (CK-2) 2.38 Troponin I < 0.012 NT-Pro-B Natriuret Pep 1760 H Impressions: Chest X-Ray 11/13/20 16:47 IMPRESSION: Moderate cardiomegaly with mild pulmonary edema. No focal consolidation. Abdomen Ultrasound 11/14/20 00:00 IMPRESSION: Fatty liver without other significant findings. Assessment and Plan - Diagnosis (1) Hepatic encephalopathy Is this a current diagnosis for this admission?: Yes (2) Acute GI bleeding Is this a current diagnosis for this admission?: Yes (3) Acute kidney injury superimposed on CKD Is this a current diagnosis for this admission?: Yes (4) Acute on chronic blood loss anemia Is this a current diagnosis for this admission?: Yes (5) Alcoholic cirrhosis of liver Qualifiers: Ascites presence: unspecified Qualified Code(s): K70.30 - Alcoholic cirrhosis of liver without ascites Is this a current diagnosis for this admission?: Yes (6) Bilateral lower extremity edema Is this a current diagnosis for this admission?: Yes (8) Hyperkalemia Is this a current diagnosis for this admission?: Yes (10) Thrombocytopenia Is this a current diagnosis for this admission?: Yes - Plan Summary Summary: Patient still having encephalopathy. His creatinine is improving down to 1.99 today. Hyponatremia is also improved to 133. His ammonia actually went up to 215. My discussion with the nurse patient only had one bowel movement over the past 24 hours. I have increased his lactulose to 40 mg 3 times daily. I have also given him an extra dose of rifaximin today. Continue to monitor ammonia levels and CMP. Continue diuresis with Lasix Monitor I's and O's Likely his encephalopathy was propagated by his recent acute GI bleed from a bleeding diverticulum - Time Time Spent with patient: 15-24 minutes Anticipated Discharge Disposition: Home with Home Health Anticipated Discharge Timeframe: within 36 hours
[2020-11-19] MEDS: RIFAXIMIN 550 MG TABLET PO SCH (22:05)
[2020-11-20] MEDS: GUAIFENESIN SYRP 200 MG/10 ML UDC PO PRN ×2 (02:24→13:01)
[2020-11-20] MEDS: PANTOPRAZOLE SODIUM 40 MG TABLET.DR PO SCH (05:17)
[2020-11-20] MEDS: LACTULOSE SYRUP 20 GM/30 ML UDCUP PO SCH ×3 (05:18→22:48)
[2020-11-20 06:38] LABS: ALBUMIN 2.9 g/dL (3.5-5.0); ALKALINE PHOSPHATASE 158 U/L (38-126); ANION GAP 7 (5-19); ASPARTATE AMINO TRANSFERASE 80 U/L (17-59); BILIRUBIN,DIRECT 0.8 mg/dL (0.0-0.4); BILIRUBIN,TOTAL 2.2 mg/dL (0.2-1.3); BLOOD UREA NITROGEN 32 mg/dL (7-20); CALCIUM 9.3 mg/dL (8.4-10.2); CARBON DIOXIDE 26 mmol/L (22-30); CHLORIDE 101 mmol/L (98-107); GLUCOSE 125 mg/dL (75-110); POTASSIUM 4.2 mmol/L (3.6-5.0); TOTAL PROTEIN 6.3 g/dL (6.3-8.2)
[2020-11-20] MEDS: VITAMIN B COMPLEX TABLET PO SCH (10:40)
[2020-11-20] MEDS: HYDROCORTISONE ACETATE 25 MG SUPP.RECT PR SCH ×2 (10:40→17:36)
[2020-11-20] MEDS: COLCHICINE 0.6 MG TABLET PO SCH (10:40)
[2020-11-20] MEDS: GABAPENTIN 300 MG CAPSULE PO SCH ×3 (10:40→17:36)
[2020-11-20] MEDS: MULTIVITAMIN TABLET PO SCH (10:40)
[2020-11-20] MEDS: FUROSEMIDE INJ/PF 40 MG/4 ML SDV IV SCH ×2 (10:40→17:36)
[2020-11-20] MEDS: RIFAXIMIN 550 MG TABLET PO SCH ×2 (10:40→22:48)
[2020-11-20] MEDS: CARVEDILOL 12.5 MG TABLET PO SCH ×2 (10:40→22:48)
[2020-11-20] MEDS: LIDOCAINE 5% (700 MG) TRANSDERMAL ADH..PATCH TP SCH ×2 (10:41→10:49)
[2020-11-20] MEDS ORDERED: DEXTROSE 40% GEL 15 GM TUBE PO PRN ×2 (13:10)
[2020-11-20] MEDS ORDERED: GLUCAGON,HUMAN RECOMB 1 MG INJ IM PRN (13:10)
[2020-11-20] MEDS ORDERED: DEXTROSE 50%-WATER 25 GM/50 ML DISP.SYRIN IV PRN ×2 (13:10)
--- NOTE | 2020-11-20 14:48 | PDOC PROGRESS REPORT ---
Subjective Date:: 11/20/20 Subjective:: Still confused but less confused than yesterday. He denies shortness of breath or pain anywhere. Denies fever or chills. He did have a large sized bowel movement last night and one this morning. He also had 3 incontinence episodes yesterday. Reason For Visit: ACUTE HYPONATREMIA,CHRONIC LOWER GI BLEEDING, Physical Exam Vital Signs: Temp Pulse Resp BP Pulse Ox 98.7 F 72 19 125/61 96 11/20/20 12:00 11/20/20 12:00 11/20/20 12:00 11/20/20 12:00 11/20/20 12:00 Intake & Output 11/19/20 11/20/20 11/21/20 06:59 06:59 06:59 Intake Total 640 1100 Output Total 2800 Balance 640 -1700 Weight 138.1 kg 299 kg 138.1 kg General appearance: PRESENT: no acute distress, cooperative Neck exam: ABSENT: JVD Respiratory exam: PRESENT: symmetrical, unlabored. ABSENT: tachypnea, wheezes Cardiovascular exam: PRESENT: RRR, +S1, +S2. ABSENT: tachycardia GI/Abdominal exam: PRESENT: distended, soft, tenderness. ABSENT: rebound, rigid Extremities exam: PRESENT: pedal edema, +2 edema Neurological exam: PRESENT: alert, awake, oriented to person, oriented to place, oriented to time. ABSENT: oriented to situation Psychiatric exam: ABSENT: agitated, anxious Results Laboratory Results: 11/18/20 09:52 11/20/20 06:07 11/20/20 11/20/20 06:07 06:07 Sodium 133.6 L Potassium 4.2 Chloride 101 Carbon Dioxide 26 Anion Gap 7 BUN 32 H Creatinine 1.80 H Est GFR ( Amer) 47 L Glucose 125 H Calcium 9.3 Total Bilirubin 2.2 H AST 80 H Alkaline Phosphatase 158 H Ammonia 66.3 H Total Protein 6.3 Albumin 2.9 L 11/13/20 11/13/20 11/13/20 16:50 16:50 16:50 Creatine Kinase 116 CK-MB (CK-2) 2.38 Troponin I < 0.012 NT-Pro-B Natriuret Pep 1760 H Impressions: Chest X-Ray 11/13/20 16:47 IMPRESSION: Moderate cardiomegaly with mild pulmonary edema. No focal consolid ation. Abdomen Ultrasound 11/14/20 00:00 IMPRESSION: Fatty liver without other significant findings. Assessment and Plan - Diagnosis (1) Hepatic encephalopathy Is this a current diagnosis for this admission?: Yes (2) Acute GI bleeding Is this a current diagnosis for this admission?: Yes (3) Acute kidney injury superimposed on CKD Is this a current diagnosis for this admission?: Yes (4) Acute on chronic blood loss anemia Is this a current diagnosis for this admission?: Yes (5) Alcoholic cirrhosis of liver Qualifiers: Ascites presence: unspecified Qualified Code(s): K70.30 - Alcoholic cirrhosis of liver without ascites Is this a current diagnosis for this admission?: Yes (6) Bilateral lower extremity edema Is this a current diagnosis for this admission?: Yes (8) Hyperkalemia Is this a current diagnosis for this admission?: Yes (10) Thrombocytopenia Is this a current diagnosis for this admission?: Yes - Plan Summary Summary: Patient still having encephalopathy. His creatinine is improving down to 1.99 today. Hyponatremia is also improved to 133. His ammonia actually went up to 215. My discussion with the nurse patient only had one bowel movement over the past 24 hours. I have increased his lactulose to 40 mg 3 times daily. I have also given him an extra dose of rifaximin today. Continue to monitor ammonia levels and CMP. Continue diuresis with Lasix Monitor I's and O's Likely his encephalopathy was propagated by his recent acute GI bleed from a bleeding diverticulum 11/20/2020 His ammonia has improved today down to the 60s. His mental status is a little bit better but he still somewhat confused. He also appears to be quite debilitated. I will have physical therapy work with him. We will try to get him out of bed in a chair today. He is diuresing very well on the Lasix which will be continued. He is still quite edematous in his legs and extremities. His creatinine is improved on labs today. Continue lactulose 40 mg 3 times daily and rifaximin dose twice daily. We will continue to monitor his mental status for improvement. H&H has been stable. - Time Time Spent with patient: 15-24 minutes Anticipated Discharge Disposition: Home with Home Health Anticipated Discharge Timeframe: within 48 hours
[2020-11-20] MEDS: INSULIN LISPRO 100 UNIT/ML 3 ML VIAL SUBCUT SCH ×2 (17:37→22:49)
[2020-11-20] MEDS: PHARMACY COMMUNICATION ORDER MC SCH (22:48)
[2020-11-21] MEDS: GUAIFENESIN SYRP 200 MG/10 ML UDC PO PRN ×2 (03:49→10:32)
[2020-11-21 05:34] LABS: HEMATOCRIT 24.7 % (37.9-51.0); HEMOGLOBIN 8.4 g/dL (13.5-17.0); MEAN CORPUSCULAR HEMOGLOBIN 31.3 pg (27.0-33.4); MEAN CORPUSCULAR HGB CONC 33.9 g/dL (32.0-36.0); MEAN CORPUSCULAR VOLUME 92 fl (80-97); RED BLOOD COUNT 2.68 10^6/uL (4.35-5.55); RED CELL DISTRIBUTION WIDTH 20.3 % (11.5-14.0); WHITE BLOOD COUNT 4.8 10^3/uL (4.0-10.5)
[2020-11-21 05:47] LABS: ALBUMIN 2.6 g/dL (3.5-5.0); ALKALINE PHOSPHATASE 130 U/L (38-126); ANION GAP 5 (5-19); ASPARTATE AMINO TRANSFERASE 69 U/L (17-59); BILIRUBIN,DIRECT 0.6 mg/dL (0.0-0.4); BILIRUBIN,TOTAL 1.8 mg/dL (0.2-1.3); BLOOD UREA NITROGEN 25 mg/dL (7-20); CARBON DIOXIDE 30 mmol/L (22-30); CHLORIDE 98 mmol/L (98-107); GLUCOSE 119 mg/dL (75-110); POTASSIUM 3.6 mmol/L (3.6-5.0); TOTAL PROTEIN 5.8 g/dL (6.3-8.2)
[2020-11-21 06:00] LABS: PLATELET COUNT 58 10^3/uL (150-450)
[2020-11-21] MEDS: LACTULOSE SYRUP 20 GM/30 ML UDCUP PO SCH ×3 (06:22→22:44)
[2020-11-21] MEDS: PANTOPRAZOLE SODIUM 40 MG TABLET.DR PO SCH (06:23)
[2020-11-21] MEDS: INSULIN LISPRO 100 UNIT/ML 3 ML VIAL SUBCUT SCH ×4 (07:34→21:33)
[2020-11-21] MEDS: MAGNESIUM SULFATE 1 GM/D5W 100 ML IV SCH ×2 (07:37→09:10)
[2020-11-21] MEDS ORDERED: POTASSIUM CHLORIDE 10 MEQ TABLET.ER PO ONE ×2 (08:11→11:00)
[2020-11-21] MEDS: MAGNESIUM SULFATE/D5W 1 GM/100 ML RTUPB IV SCH ×2 (10:22→11:58)
[2020-11-21] MEDS: GABAPENTIN 300 MG CAPSULE PO SCH ×3 (10:25→17:20)
[2020-11-21] MEDS: COLCHICINE 0.6 MG TABLET PO SCH (10:25)
[2020-11-21] MEDS: FUROSEMIDE INJ/PF 40 MG/4 ML SDV IV SCH (10:25)
[2020-11-21] MEDS: MULTIVITAMIN TABLET PO SCH (10:25)
[2020-11-21] MEDS: LIDOCAINE 5% (700 MG) TRANSDERMAL ADH..PATCH TP SCH (10:26)
[2020-11-21] MEDS: VITAMIN B COMPLEX TABLET PO SCH (10:26)
[2020-11-21] MEDS: CARVEDILOL 12.5 MG TABLET PO SCH ×2 (10:26→22:32)
[2020-11-21] MEDS: RIFAXIMIN 550 MG TABLET PO SCH ×2 (10:26→22:32)
[2020-11-21] MEDS: HYDROCORTISONE ACETATE 25 MG SUPP.RECT PR SCH ×2 (10:27→17:22)
--- NOTE | 2020-11-21 13:15 | PDOC PROGRESS REPORT ---
Subjective Date:: 11/21/20 Subjective:: Today patient's mental status is back to baseline. He is no longer confused. H e denies any shortness of breath or pains. Still swollen in his lower extremities well to slowly improving Had a conversation with his sister who was at bedside. Discussed the plan of care going forward with both of them. Reason For Visit: ACUTE HYPONATREMIA,CHRONIC LOWER GI BLEEDING, Physical Exam Vital Signs: Temp Pulse Resp BP Pulse Ox 97.5 F 66 15 117/48 L 98 11/21/20 12:00 11/21/20 12:00 11/21/20 12:00 11/21/20 12:00 11/21/20 12:00 Intake & Output 11/20/20 11/21/20 11/22/20 06:59 06:59 06:59 Intake Total 1100 1400 920 Output Total 2800 3850 1400 Balance -1700 -2450 -480 Weight 299 kg 126.1 kg General appearance: PRESENT: no acute distress, cooperative Neck exam: ABSENT: JVD Respiratory exam: PRESENT: clear to auscultation lul, symmetrical, unlabored. ABSENT: tachypnea, wheezes Cardiovascular exam: PRESENT: RRR, +S1, +S2. ABSENT: tachycardia GI/Abdominal exam: PRESENT: soft. ABSENT: rebound, rigid, tenderness Extremities exam: PRESENT: +2 edema Neurological exam: PRESENT: alert, awake, oriented to person, oriented to place, oriented to time, oriented to situation Psychiatric exam: ABSENT: agitated, anxious Results Laboratory Results: 11/21/20 05:14 11/21/20 05:14 11/21/20 11/21/20 11/21/20 05:14 05:14 05:14 WBC 4.8 RBC 2.68 L Hgb 8.4 L Hct 24.7 L MCV 92 MCH 31.3 MCHC 33.9 RDW 20.3 H Plt Count 58 L Sodium 133.1 L Potassium 3.6 Chloride 98 Carbon Dioxide 30 Anion Gap 5 BUN 25 H Creatinine 1.64 H Est GFR ( Amer) 52 L Glucose 119 H Calcium 9.0 Magnesium 1.1 L* Total Bilirubin 1.8 H AST 69 H Alkaline Phosphatase 130 H Ammonia 77.3 H Total Protein 5.8 L Albumin 2.6 L 11/13/20 11/13/20 11/13/20 16:50 16:50 16:50 Creatine Kinase 116 CK-MB (CK-2) 2.38 Troponin I < 0.012 NT-Pro-B Natriuret Pep 1760 H Impressions: Chest X-Ray 11/13/20 16:47 IMPRESSION: Moderate cardiomegaly with mild pulmonary edema. No focal consolidation. Abdomen Ultrasound 11/14/20 00:00 IMPRESSION: Fatty liver without other significant findings. Assessment and Plan - Diagnosis (1) Hepatic encephalopathy Is this a current diagnosis for this admission?: Yes (2) Acute GI bleeding Is this a current diagnosis for this admission?: Yes (3) Acute kidney injury superimposed on CKD Is this a current diagnosis for this admission?: Yes (4) Acute on chronic blood loss anemia Is this a current diagnosis for this admission?: Yes (5) Alcoholic cirrhosis of liver Qualifiers: Ascites presence: unspecified Qualified Code(s): K70.30 - Alcoholic cirrhosis of liver without ascites Is this a current diagnosis for this admission?: Yes (6) Bilateral lower extremity edema Is this a current diagnosis for this admission?: Yes (8) Hyperkalemia Is this a current diagnosis for this admission?: Yes (10) Thrombocytopenia Is this a current diagnosis for this admission?: Yes - Plan Summary Summary: Patient still having encephalopathy. His creatinine is improving down to 1.99 today. Hyponatremia is also improved to 133. His ammonia actually went up to 215. My discussion with the nurse patient only had one bowel movement over the past 24 hours. I have increased his lactulose to 40 mg 3 times daily. I have also given him an extra dose of rifaximin today. Continue to monitor ammonia levels and CMP. Continue diuresis with Lasix Monitor I's and O's Likely his encephalopathy was propagated by his recent acute GI bleed from a bleeding diverticulum 11/20/2020 His ammonia has improved today down to the 60s. His mental status is a little bit better but he still somewhat confused. He also appears to be quite debilitated. I will have physical therapy work with him. We will try to get him out of bed in a chair today. He is diuresing very well on the Lasix which will be continued. He is still quite edematous in his legs and extremities. His creatinine is improved on labs today. Continue lactulose 40 mg 3 times daily and rifaximin dose twice daily. We will continue to monitor his mental status for improvement. H&H has been stable. 11/21/2020 Patient is back to his baseline mental status. His confusion has resolved. He did have about 4 bowel movements yesterday. He continues to make good urine and renal function is improved. Continue rifaximin outs twice daily dosing and current lactulose dose. Discussed with him heavily to not resume Aldactone upon discharge. I also spoke with his sister about her care plan of care. He will be following up with his driller multiple spindle at [facility]. We will monitor him for today and ensure he is adequate. He has worked with physical therapy and he has been set up for home health. I will switch his Lasix from IV to p.o. He is receiving repletion with IV magnesium sulfate 4 g due to his hypomagnesemia. We will check more labs in the morning prior to discharge tomorrow. - Time Time Spent with patient: 15-24 minutes Anticipated Discharge Disposition: Home with Home Health Anticipated Discharge Timeframe: within 24 hours
[2020-11-21] MEDS: MAGNESIUM OXIDE 400 MG TABLET PO SCH (17:20)
[2020-11-21] MEDS: FUROSEMIDE 40 MG TABLET PO SCH (17:20)
[2020-11-21] MEDS: PHARMACY COMMUNICATION ORDER MC SCH (22:33)
[2020-11-22] MEDS: GUAIFENESIN SYRP 200 MG/10 ML UDC PO PRN (05:13)
[2020-11-22] MEDS: LACTULOSE SYRUP 20 GM/30 ML UDCUP PO SCH (05:14)
[2020-11-22] MEDS: PANTOPRAZOLE SODIUM 40 MG TABLET.DR PO SCH (05:14)
[2020-11-22 06:03] LABS: ALBUMIN 2.7 g/dL (3.5-5.0); ALKALINE PHOSPHATASE 172 U/L (38-126); ANION GAP 6 (5-19); ASPARTATE AMINO TRANSFERASE 74 U/L (17-59); BILIRUBIN,DIRECT 0.7 mg/dL (0.0-0.4); BILIRUBIN,TOTAL 1.6 mg/dL (0.2-1.3); BLOOD UREA NITROGEN 21 mg/dL (7-20); CALCIUM 8.9 mg/dL (8.4-10.2); CARBON DIOXIDE 30 mmol/L (22-30); CHLORIDE 98 mmol/L (98-107); GLUCOSE 114 mg/dL (75-110); TOTAL PROTEIN 5.9 g/dL (6.3-8.2)
[2020-11-22] MEDS: INSULIN LISPRO 100 UNIT/ML 3 ML VIAL SUBCUT SCH ×2 (07:15→11:19)
[2020-11-22 08:26] VITALS: BP 140/60
[2020-11-22] MEDS: MAGNESIUM OXIDE 400 MG TABLET PO SCH (09:26)
[2020-11-22] MEDS: GABAPENTIN 300 MG CAPSULE PO SCH (09:26)
[2020-11-22] MEDS: MULTIVITAMIN TABLET PO SCH (09:26)
[2020-11-22] MEDS: COLCHICINE 0.6 MG TABLET PO SCH (09:26)
[2020-11-22] MEDS: FUROSEMIDE 40 MG TABLET PO SCH (09:26)
[2020-11-22] MEDS: VITAMIN B COMPLEX TABLET PO SCH (09:27)
[2020-11-22] MEDS: RIFAXIMIN 550 MG TABLET PO SCH (09:27)
[2020-11-22] MEDS: CARVEDILOL 12.5 MG TABLET PO SCH (09:27)
[2020-11-22] MEDS: MAGNESIUM SULFATE/D5W 1 GM/100 ML RTUPB IV SCH ×2 (09:28→10:45)
[2020-11-22] MEDS: LIDOCAINE 5% (700 MG) TRANSDERMAL ADH..PATCH TP SCH (09:33)
[2020-11-22] MEDS: HYDROCORTISONE ACETATE 25 MG SUPP.RECT PR SCH (09:33)
--- NOTE | 2020-11-22 12:32 | PDOC DISCHARGE SUMMARY ---
Impression - Admit/DC Date/PCP Admission Date/Primary Care Provider: 11/14/20 13:05 ANA LUISA CHESTER MD Discharge Date: 11/22/20 - Discharge Diagnosis (1) Acute GI bleeding Is this a current diagnosis for this admission?: Yes (2) Hepatic encephalopathy Is this a current diagnosis for this admission?: Yes (3) Acute kidney injury superimposed on CKD Is this a current diagnosis for this admission?: Yes (4) Acute on chronic blood loss anemia Is this a current diagnosis for this admission?: Yes (5) Alcoholic cirrhosis of liver Is this a current diagnosis for this admission?: Yes (6) Bilateral lower extremity edema Is this a current diagnosis for this admission?: Yes (7) Hyperammonemia Is this a current diagnosis for this admission?: Yes (8) Hyperkalemia Is this a current diagnosis for this admission?: Yes (9) Hypomagnesemia Is this a current diagnosis for this admission?: Yes (10) Thrombocytopenia Is this a current diagnosis for this admission?: Yes - Assessment Summary: Patient still having encephalopathy. His creatinine is improving down to 1.99 today. Hyponatremia is also improved to 133. His ammonia actually went up to 215. My discussion with the nurse patient only had one bowel movement over the past 24 hours. I have increased his lactulose to 40 mg 3 times daily. I have also given him an extra dose of rifaximin today. Continue to monitor ammonia levels and CMP. Continue diuresis with Lasix Monitor I's and O's Likely his encephalopathy was propagated by his recent acute GI bleed from a bleeding diverticulum 11/20/2020 His ammonia has improved today down to the 60s. His mental status is a little bit better but he still somewhat confused. He also appears to be quite debilitated. I will have physical therapy work with him. We will try to get him out of bed in a chair today. He is diuresing very well on the Lasix which will be continued. He is still quite edematous in his legs and extremities. His creatinine is improved on labs today. Continue lactulose 40 mg 3 times daily and rifaximin dose twice daily. We will continue to monitor his mental status for improvement. H&H has been stable. 11/21/2020 Patient is back to his baseline mental status. His confusion has resolved. He did have about 4 bowel movements yesterday. He continues to make good urine and renal function is improved. Continue rifaximin outs twice daily dosing and current lactulose dose. Discussed with him heavily to not resume Aldactone upon discharge. I also spoke with his sister about her care plan of care. He will be following up with his gill box tender at [place]. We will monitor him for today and ensure he is adequate. He has worked with physical therapy and he has been set up for home health. I will switch his Lasix from IV to p.o. He is receiving repletion with IV magnesium sulfate 4 g due to his hypomagnesemia. We will check more labs in the morning prior to discharge tomorrow. - Additional Information Resuscitation Status: Do Not Resuscitate Discharge Diet: As Tolerated, Cardiac Discharge Activity: Activity As Tolerated Referrals: PAULO RICO MD [PEDIATRICS] - 11/24/20 1:15 pm FARIHA BUTLER MD [NO LOCAL MD] - Prescriptions: Lactulose [Cephulac Syrup 20 gm/30 ml Udcup] 40 gm PO BID 30 Days udc Cephalexin Monohydrate [Keflex 500 mg Capsule] 500 mg PO QID 6 Days #24 capsule Furosemide [Lasix 40 mg Tablet] 40 mg PO BID 30 Days #60 Magnesium Oxide [Mag-Ox 400 mg Tablet] 400 mg PO BID #60 tablet Potassium Chloride 20 meq PO DAILY #20 tab.er.prt Pantoprazole Sodium [Protonix [address] Tablet] 40 mg PO Q6AM 30 Days #30 tablet. Vitamin B Complex [Vitamin B Complex Tablet] 1 tab PO DAILY 30 Days #30 tablet Rifaximin [Xifaxan 550 mg Tablet] 550 mg PO Q12 #60 Home Medications: Carvedilol [Coreg 12.5 mg Tablet] 12.5 mg PO Q12 07/06/20 Gabapentin [Neurontin] 800 mg PO BID 07/06/20 Omeprazole 40 mg PO DAILY 07/06/20 Allopurinol [Zyloprim 100 mg Tablet] 100 mg PO DAILY 11/14/20 Sildenafil Citrate 100 mg PO DAILYP PRN 11/14/20 Pantoprazole Sodium [Protonix [address] Tablet] 40 mg PO Q6AM 30 Days #30 araseli. 11/17/20 Vitamin B Complex [Vitamin B Complex Tablet] 1 tab PO DAILY 30 Days #30 tablet 11/17/20 Cephalexin Monohydrate [Keflex 500 mg Capsule] 500 mg PO QID 6 Days #24 capsule 11/22/20 Furosemide [Lasix 40 mg Tablet] 40 mg PO BID 30 Days #60 11/22/20 Lactulose [Cephulac Syrup 20 gm/30 ml Udcup] 40 gm PO BID 30 Days udc 11/22/20 Magnesium Oxide [Mag-Ox 400 mg Tablet] 400 mg PO BID #60 tablet 11/22/20 Potassium Chloride 20 meq PO DAILY #20 tab.er.prt 11/22/20 Rifaximin [Xifaxan 550 mg Tablet] 550 mg PO Q12 #60 11/22/20 History of Present Illiness History of Present Illness: According to admitting provider: NOAH LANGLEY is a 60 year old male with past medical history significant for cirrhosis, chronic diastolic CHF, CKD 3B, chronic bilateral lower extremity edema, chronic blood loss anemia, hemorrhoids, 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 Patient states he has been seeing bright red blood on the toilet paper when he wipes after bowel movements although he admits this has been going on for years and seems to be worse lately. He states he followed with GI outpatient in the past but this was before he moved here from [place] approximately 6 months ago. Patient had a recent admission on 07/2020 for hyponatremia and he was taken off spironolactone. Patient states he has still been taking this medication along with Lasix however. Sodium is lower than previous value at discharge, currently at 126.5. He also has LIEN with creatinine up to 2.41 and he states he has been gaining weight and taking on fluid in his abdomen and legs which is worse than usual. He previously have a history of alcohol abuse but states he has not drank in quite some time now. General surgery consulted on admission and planning upper and lower endoscopies after patient is transfused to hemoglobin greater than 7. Transfusing 1 unit PRBC on admission followed by IV Lasix. We also have him on sodium chloride tablets. He is highly likely to continue having chronic hypo natremia due to cirrhosis and chronic volume overload and this will be challenging to control with diuretics and other medications. Hospital Course Hospital Course: Patient was admitted to the hospital for progressive shortness of breath with concerns for acute GI bleed, symptomatic anemia in addition to chronic fluid overload state from his cirrhosis. On presentation, patient was hemodynamically stable. However his hemoglobin was down to 6.8 from a baseline of about 9 3 months ago. He received 3 units of blood transfusion during this hospitalizati on. He was also noted to be significantly hyponatremic at 126 and hyperkalemic at 5.7. His electrolyte abnormalities were thought to be due to the fact that he was still taking the Aldactone that he had been told to stop after his last admission. Was placed on Lasix IV. The dose was later increased to twice daily. He has diuresed extremely well. Regarding his GI bleed, he underwent upper and lower endoscopy. EGD was normal and showed no varices. Colonoscopy revealed actively bleeding diverticulum which was injected with epinephrine to achieve hemostasis. He did develop hepatic encephalopathy following this. He has been given high dose of lactulose and his rifaximin was increased to twice daily which is actually what he was noted to be taking before but he was only taking rifaximin daily at home. His mental status improved subsequently and his energy levels went down. He has been back to his baseline mental status for the past 2 days and is ready for discharge planning. I discussed the plan of care extensively with him as well as his sister. I did give him a few days of antibiotics with Keflex for the erythema or warmth in his right lower extremely which may be indicative of mild cellulitis. I have advised him on a low-sodium diet. He is scheduled to follow-up with his primary care provider on Tuesday and I have encouraged him to follow-up with his GI doctor within 2 weeks. Physical Exam Vital Signs: Temp Pulse Resp BP Pulse Ox 98.1 F 83 18 140/60 H 95 11/22/20 10:00 11/22/20 08:25 11/22/20 08:25 11/22/20 08:25 11/22/20 08:25 Intake & Output 11/21/20 11/22/20 11/23/20 06:59 06:59 06:59 Intake Total 1400 2390 200 Output Total 3850 1720 Balance -2450 670 200 Weight 126.1 kg 125.2 kg General appearance: PRESENT: no acute distress, cooperative Neck exam: ABSENT: JVD Respiratory exam: PRESENT: clear to auscultation lul, symmetrical, unlabored. ABSENT: tachypnea, wheezes Cardiovascular exam: PRESENT: RRR, +S1, +S2. ABSENT: tachycardia GI/Abdominal exam: PRESENT: soft. ABSENT: rebound, rigid, tenderness Extremities exam: PRESENT: pedal edema, +2 edema Musculoskeletal exam: PRESENT: ambulatory Neurological exam: PRESENT: alert, awake, oriented to person, oriented to place, oriented to time, oriented to situation Psychiatric exam: ABSENT: agitated, anxious Results Laboratory Results: WBC 4.8 10^3/uL (4.0-10.5) 11/21/20 05:14 RBC 2.68 10^6/uL (4.35-5.55) L 11/21/20 05:14 Hgb 8.4 g/dL (13.5-17.0) L 11/21/20 05:14 Hct 24.7 % (37.9-51.0) L 11/21/20 05:14 MCV 92 fl (80-97) 11/21/20 05:14 MCH 31.3 pg (27.0-33.4) 11/21/20 05:14 MCHC 33.9 g/dL (32.0-36.0) 11/21/20 05:14 RDW 20.3 % (11.5-14.0) H 11/21/20 05:14 Plt Count 58 10^3/uL (150-450) L 11/21/20 05:14 Lymph % (Auto) Not Reportable 11/18/20 09:52 [place] % (Auto) Not Reportable 11/18/20 09:52 Eos % (Auto) Not Reportable 11/18/20 09:52 Baso % (Auto) Not Reportable 11/18/20 09:52 Reticulocyte # Cancelled 11/14/20 07:36 Absolute Neuts (auto) Not Reportable 11/18/20 09:52 Absolute Lymphs (auto) Not Reportable 11/18/20 09:52 Absolute Monos (auto) Not Reportable 11/18/20 09:52 Absolute Eos (auto) Not Reportable 11/18/20 09:52 Absolute Basos (auto) Not Reportable 11/18/20 09:52 Total Counted 100 11/18/20 09:52 Seg Neutrophils % Not Reportable 11/18/20 09:52 Seg Neuts % (Manual) 53 % (42-78) 11/18/20 09:52 Lymphocytes % (Manual) 19 % (13-45) 11/18/20 09:52 Atypical Lymphs % 3 % (0) 11/18/20 09:52 Monocytes % (Manual) 20 % (3-13) H 11/18/20 09:52 Eosinophils % (Manual) 5 % (0-6) 11/18/20 09:52 Basophils % (Manual) 0 % (0-2) 11/18/20 09:52 Abs Neuts (Manual) 2.5 10^3/uL (1.7-8.2) 11/18/20 09:52 Abs Lymphs (Manual) 1.0 10^3/uL (0.5-4.7) 11/18/20 09:52 Abs Monocytes (Manual) 0.9 10^3/uL (0.1-1.4) 11/18/20 09:52 Absolute Eos (Manual) 0.2 10^3/uL (0.0-0.6) 11/18/20 09:52 Abs Basophils (Manual) 0.0 10^3/uL (0.0-0.2) 11/18/20 09:52 Reticulocyte # (manual) Cancelled 11/14/20 07:36 Platelet Estimate Cancelled 11/14/20 07:36 Platelet Comment DECREASED 11/18/20 09:52 Polychromasia 1+ 11/18/20 09:52 Poikilocytosis 1+ 11/18/20 09:52 Anisocytosis 3+ 11/18/20 09:52 Target Cells SLIGHT 11/18/20 09:52 Tear Drop Cells SLIGHT 11/18/20 09:52 Ovalocytes 1+ 11/18/20 09:52 Schistocytes SLIGHT 11/18/20 09:52 Retic Count Cancelled 11/14/20 07:36 Retic Count (manual) Cancelled 11/14/20 07:36 Retic Count (auto) Cancelled 11/14/20 07:36 Absolute Retic Cancelled 11/14/20 07:36 Carbonic Acid 1.08 mmol/L (1.05-1.35) 11/18/20 05:55 HCO3/H2CO3 Ratio 22:1 11/18/20 05:55 ABG pH 7.46 (7.35-7.45) H 11/18/20 05:55 ABG pCO2 36.0 mmHg (35-45) 11/18/20 05:55 ABG pO2 73.3 mmHg (80-100) L 11/18/20 05:55 ABG HCO3 24.8 mmol/L (20-24) H 11/18/20 05:55 ABG Total CO2 25.9 mmol/L (23-27) 11/18/20 05:55 ABG O2 Saturation 95.5 % (94-98) 11/18/20 05:55 ABG Base Excess 1.0 mmol/L 11/18/20 05:55 FiO2 21% 11/18/20 05:55 Sodium 133.9 mmol/L (137-145) L 11/22/20 05:21 Potassium 4.0 mmol/L (3.6-5.0) 11/22/20 05:21 Chloride 98 mmol/L (98-107) 11/22/20 05:21 Carbon Dioxide 30 mmol/L (22-30) 11/22/20 05:21 Anion Gap 6 (5-19) 11/22/20 05:21 BUN 21 mg/dL (7-20) H 11/22/20 05:21 Creatinine 1.48 mg/dL (0.52-1.25) H 11/22/20 05:21 Est GFR ( Amer) 59 (>60) L 11/22/20 05:21 Est GFR (Non-Af Amer) Cancelled 11/15/20 05:47 Est GFR (MDRD) Non-Af 48 (>60) L 11/22/20 05:21 Glucose 114 mg/dL (75-110) H 11/22/20 05:21 POC Glucose 120 mg/dL (70-110) H 11/22/20 11:18 Hemoglobin A1c % 4.4 % (4.7-6.0) L 11/20/20 06:07 Calcium 8.9 mg/dL (8.4-10.2) 11/22/20 05:21 Phosphorus 4.3 mg/dL (2.5-4.5) 11/15/20 08:03 Magnesium 1.5 mg/dL (1.6-2.3) L 11/22/20 05:21 Iron 88.5 ug/dL (49-181) 11/14/20 08:29 TIBC 407 ug/dL (250-450) 11/14/20 08:29 % Saturation 22 % 11/14/20 08:29 Ferritin 29.60 ng/mL (17.9-464.0) 11/14/20 08:29 Total Bilirubin 1.6 mg/dL (0.2-1.3) H 11/22/20 05:21 Direct Bilirubin 0.7 mg/dL (0.0-0.4) H 11/22/20 05:21 Neonat Total Bilirubin Not Reportable 11/22/20 05:21 Neonat Direct Bilirubin Not Reportable 11/22/20 05:21 Neonat Indirect Bili Not Reportable 11/22/20 05:21 AST 74 U/L (17-59) H 11/22/20 05:21 ALT 26 U/L (<50) 11/22/20 05:21 Alkaline Phosphatase 172 U/L (38-126) H 11/22/20 05:21 Ammonia 77.3 umol/L (9-33) H 11/21/20 05:14 Creatine Kinase 116 U/L (55-170) 11/13/20 16:50 CK-MB (CK-2) 2.38 ng/mL (<4.55) 11/13/20 16:50 Troponin I < 0.012 ng/mL 11/13/20 16:50 NT-Pro-B Natriuret Pep 1760 pg/mL (<125) H 11/13/20 16:50 Total Protein 5.9 g/dL (6.3-8.2) L 11/22/20 05:21 Albumin 2.7 g/dL (3.5-5.0) L 11/22/20 05:21 EGFR Cancelled 11/15/20 05:47 Vitamin B12 > 1000.0 pg/mL (239-931) H 11/14/20 08:29 Folate 19.60 ng/mL (>2.76) 11/14/20 08:29 Urine Color YELLOW 11/13/20 18:21 Urine Appearance CLEAR 11/13/20 18:21 Urine pH 6.0 (5.0-9.0) 11/13/20 18:21 Ur Specific [place] 1.011 11/13/20 18:21 Urine Protein NEGATIVE mg/dL (NEGATIVE) 11/13/20 18:21 Urine Glucose (UA) NEGATIVE mg/dL (NEGATIVE) 11/13/20 18:21 Urine Ketones NEGATIVE mg/dL (NEGATIVE) 11/13/20 18:21 Urine Blood NEGATIVE (NEGATIVE) 11/13/20 18:21 Urine Nitrite NEGATIVE (NEGATIVE) 11/13/20 18:21 Urine Bilirubin NEGATIVE (NEGATIVE) 11/13/20 18:21 Urine Urobilinogen NEGATIVE mg/dL (<2.0) 11/13/20 18:21 Ur Leukocyte Esterase NEGATIVE (NEGATIVE) 11/13/20 18:21 Urine WBC (Auto) 2 /HPF 11/13/20 18:21 Urine RBC (Auto) 0 /HPF 11/13/20 18:21 U Hyaline Cast (Auto) 11 /LPF 11/13/20 18:21 Urine Bacteria (Auto) 1+ /HPF 11/13/20 18:21 Squamous Epi Cells Auto 1 /HPF 11/13/20 18:21 Urine Mucus (Auto) RARE /LPF 11/13/20 18:21 Urine Ascorbic Acid NEGATIVE (NEGATIVE) 11/13/20 18:21 POC Stool Occult Blood POSITIVE (NEGATIVE) 11/13/20 21:43 Influenza A (RT-PCR) NEGATIVE (NEGATIVE) 11/19/20 10:05 Influenza B (RT-PCR) NEGATIVE (NEGATIVE) 11/19/20 10:05 RSV (RT-PCR) NEGATIVE (NEGATIVE) 11/19/20 10:05 SARS-CoV-2 Rap RNA(RT-PCR) NEGATIVE (NEGATIVE) 11/19/20 10:05 Slides for Path Review Cancelled 11/14/20 07:36 Blood Type A POSITIVE 11/17/20 09:39 Blood Type Confirm A POSITIVE 11/13/20 23:38 Antibody Screen NEGATIVE 11/17/20 09:39 Crossmatch See Detail 11/17/20 09:39 11/13/20 11/13/20 16:50 16:50 CK-MB (CK-2) 2.38 Troponin I < 0.012 NT-Pro-B Natriuret Pep 1760 H Impressions: Chest X-Ray 11/13/20 16:47 IMPRESSION: Moderate cardiomegaly with mild pulmonary edema. No focal consolidation. Abdomen Ultrasound 11/14/20 00:00 IMPRESSION: Fatty liver without other significant findings. Plan Time Spent: Greater than 30 Minutes Stroke Is this a Stroke Patient?: No Acute Heart Failure Is this a Heart Failure Patient?: No
== END 2020-11-22 13:17 | disposition home health service (06) | DRG 377 ==
LOC: ER 16:25 → EH 11-14 00:15 → 4W 11-14 01:38 → OBSVTOIN 11-14 13:05
PROVIDERS: ADMIT Internal Medicine; ATTEND Internal Medicine
PROC: 30233N1 Transfusion of Nonautologous Red Blood Cells into Peripheral Vein, Percutaneous Approach (ICD-10-PCS; 2020-11-13)
PROC: 0DJD8ZZ Inspection of Lower Intestinal Tract, Via Natural or Artificial Opening Endoscopic (ICD-10-PCS; 2020-11-15)
PROC: 0DJ08ZZ Inspection of Upper Intestinal Tract, Via Natural or Artificial Opening Endoscopic (ICD-10-PCS; principal; 2020-11-15 16:00)
PROC: 3E0H8GC Introduction of Other Therapeutic Substance into Lower GI, Via Natural or Artificial Opening Endoscopic (ICD-10-PCS; 2020-11-15 16:00)
DX: K57.31 Diverticulosis of large intestine without perforation or abscess with bleeding (principal); G93.41 Metabolic encephalopathy; E87.1 Hypo-osmolality and hyponatremia; N17.9 Acute kidney failure, unspecified; D62 Acute posthemorrhagic anemia; E72.20 Disorder of urea cycle metabolism, unspecified; I50.32 Chronic diastolic (congestive) heart failure; L03.116 Cellulitis of left lower limb; L03.115 Cellulitis of right lower limb; Z60.2 Problems related to living alone; K72.90 Hepatic failure, unspecified without coma; K70.30 Alcoholic cirrhosis of liver without ascites; F10.20 Alcohol dependence, uncomplicated; E87.5 Hyperkalemia; E83.42 Hypomagnesemia; D69.6 Thrombocytopenia, unspecified; N18.32 Chronic kidney disease, stage 3b; Z66 Do not resuscitate; K64.9 Unspecified hemorrhoids; M10.9 Gout, unspecified; D50.9 Iron deficiency anemia, unspecified; Z20.822 Contact with and (suspected) exposure to COVID-19; Z79.899 Other long term (current) drug therapy
CPT/HCPCS: 00813; 36415; 36430; 36600; 43235; 45381; 71045; 76705; 80048; 80053; 81001; 82140; 82270; 82550; 82553; 82607; 82728; 82746; 82803; 82962; 83036; 83540; 83550; 83735; 83880; 84100; 84484; 85025; 85027; 86850; 86900; 86901; 86920; 93005; 93010; 96374; 99140; 99285; 0241U; A9270-GY; C9113; C9803; J0171; J1610; J1815; J1940; J2405; J2704; J3475; J3490; P9016; S0119